=== PATIENT | male | born 1955 | race American Indian/Alaskan Native ===

== ENCOUNTER 2016-07-29 11:16 | Inpatient (IN) | payer MEDICARE, MEDICAID ==
[2016-07-29 11:18] VITALS: BMI 22.7
[2016-07-29] MEDS ORDERED: Metoprolol 1 mg/ml Inj IVP ONE ×2 (12:03→12:43)
--- NOTE | 2016-07-29 12:08 | ED PDOC ---
Arrival/HPI - General Chief Complaint: Medical Clearance Time Seen by Provider: 07/29/16 11:40 Historian: Patient - Critical Care Critical Care Minutes: 30 minutes - History of Present Illness Narrative History of Present Illness (Text): 07/29/16 11:53 Edmar Law is a 61 year old male who presents to the emergency room complaining of heart palpitations since this morning. Patient states that he has been experiencing intermittent hypertension for 2-3 weeks which caused his PMD to increase his medications. After no relief, patient's PMD changed the patient medication which helped but caused patient to feel nauseous yesterday. This morning, after taking medication, patient began to feel heart palpitations and found his sugar level to be 174. Patient denies any fever, chills, chest pain, vomiting, diarrhea, urinary symptoms, back pain, neck pain, headache, dizziness, or any other complaints. Time/Duration: 24 hours Symptom Onset: Gradual Symptom Course: Worsening Severity Level: Mild Activities at Onset: Light Context: Home Associated Symptoms (Text): 07/29/16 12:44 Patient reports hypertension measured at home for the last several weeks. A few days ago his PMD changed the dosages of his medications. Yesterday he was seen by his PMD and hydralazine was added. Today the patient has palpitations and lightheadedness. No chest pain. No dyspnea. No abdominal pain nausea vomiting. No weakness. 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 Past Medical History - Provider Review Nursing Documentation Reviewed: Yes - Past History Past History: No Previous - Infectious Disease Hx of Infectious Diseases: None - Tetanus Immunization Tetanus Immunization: Unknown - Cardiac Hx Hypertension: Yes - Pulmonary Hx Respiratory Disorders: No - Neurological HX Cerebrovascular Accident: Yes (right side weakness) - HEENT Hx HEENT Disorder: No Other/Comment: WEARS RX GLASSES - Renal Hx Renal Disorder: No Other/Comment: frequency - Endocrine/Metabolic Hx Diabetes Mellitus Type 1: Yes - Hematological/Oncological Hx Blood Disorders: No - Integumentary Hx Dermatological Disorder: No - Musculoskeletal/Rheumatological Hx Falls: No - Psychiatric Hx Substance Use: No Other/Comment: BEER OCCASIONALLY - Past Surgical History Past Surgical History: No Previous - Anesthesia Hx Anesthesia: No - Suicidal Assessment Feels Threatened In Home Enviroment: No Family/Social History - Physician Review Nursing Documentation Reviewed: Yes Family/Social History: No Known Family HX Smoking Status: Never Smoked Hx Alcohol Use: No Hx Substance Use: No Hx Substance Use Treatment: No Allergies/Home Meds Allergies/Adverse Reactions: Allergies No Known Allergies Allergy (Verified 09/30/12 13:56) Home Medications: Home Meds Medication Instructions Recorded Confirmed Clonidine Hydrochloride [Clonidine 0.2 mg PO BID 09/30/12 09/30/12 HCl] Metformin Hydrochloride [Metformin] 500 mg PO BID 09/30/12 09/30/12 Amlodipine Besylate 10 mg PO DAILY 10/11/12 10/11/12 Aspirin [Ecotrin] 325 mg PO DAILY 10/11/12 10/11/12 Enalapril Maleate [Enalapril] 20 mg PO DAILY 10/11/12 10/11/12 Simvastatin 20 mg PO HS 10/11/12 10/11/12 Review of Systems - Physician Review All systems were reviewed & negative as marked: Yes - Review of Systems Constitutional: Fatigue. absent: Fevers, Night Sweats Eyes: absent: Vision Changes ENT: absent: Hearing Changes Respiratory: absent: Cough Cardiovascular: Palpitations. absent: Chest Pain, Syncope Gastrointestinal: Nausea. absent: Abdominal Pain, Constipation, Diarrhea, Vomiting Genitourinary Male: absent: Dysuria, Frequency, Hematuria, Urinary Output Changes Musculoskeletal: absent: Back Pain, Neck Pain Skin: absent: Pruritis Neurological: Dizziness, Focal Weakness (Old right upper extremity weakness). absent: Headache, Gait Changes, Speech Changes, Facial Droop, Disequilibrium, Seizure Endocrine: absent: Polyuria Hemo/Lymphatic: absent: Easy Bleeding Psychiatric: absent: Depression Physical Exam - Physical Exam Narrative Physical Exam (Text): 07/29/16 12:46 EKG shows sinus tachycardia rate approximately 125 with unifocal PVCs and no acute ST or T-wave changes Vital Signs Reviewed: Yes Vital Signs Temp Pulse Resp BP Pulse Ox 07/29/16 13:59 87 17 141/93 H 98 07/29/16 13:35 100 H 172/92 H 07/29/16 13:00 100 H 16 172/92 H 98 07/29/16 12:39 121 H 164/108 H 07/29/16 11:36 97.8 F 131 H 20 179/114 H 99 Temperature: Afebrile Blood Pressure: Hypertensive Pulse: Tachycardic Respiratory Rate: Normal Appearance: Positive for: Well-Appearing, Non-Toxic, Comfortable Pain Distress: None Mental Status: Positive for: Alert and Oriented X 3 - Systems Exam Head: Present: Atraumatic, Normocephalic Pupils: Present: PERRL Extroacular Muscles: Present: EOMI Conjunctiva: Present: Normal Mouth: Present: Moist Mucous Membranes Neck: Present: Normal Range of Motion Respiratory/Chest: Present: Clear to Auscultation, Good Air Exchange. No: Respiratory Distress, Accessory Muscle Use Cardiovascular: Present: Regular Rate and Rhythm, Normal S1, S2. No: Murmurs Abdomen: Present: Normal Bowel Sounds. No: Tenderness, Distention, Peritoneal Signs Back: Present: Normal Inspection Upper Extremity: Present: Other (weakness in Right UE) Lower Extremity: Present: Normal Inspection. No: Edema Neurological: Present: GCS=15, CN II-XII Intact, Speech Normal Skin: Present: Warm, Dry, Normal Color. No: Rashes Psychiatric: Present: Alert, Oriented x 3, Normal Insight, Normal Concentration Medical Decision Making ED Course and Treatment: 07/29/16 11:53 Impression: 61 year old male complaining of heart palpitations this morning and nausea yesterday after a change in his medication. Plan: -- EKG -- Head CT w/o Contrast -- Chest X-ray -- Labs -- Lopressor -- Reassess and disposition Prior Visits: Notes and results from previous visits were reviewed. Patient last seen in the ED on 10/11/12 for weakness and dizziness due to low sugar levels fora few hours that day. Patient was admitted to the hospital for further evaluation. Progress Notes: 07/29/16 13:24 CT scan of the head as read by the radiologist shows no acute findings - Lab Interpretations Lab Results: 07/29/16 12:30 07/29/16 12:30 Lab Results 07/29/16 12:30: WBC 8.7 D, RBC 5.54, Hgb 15.4, Hct 43.8, MCV 79.1 L, MCH 27.8, MCHC 35.2, RDW 12.9, Plt Count 214, MPV 10.7, Gran % 81.8 H, Lymph % (Auto) 13.3 L, Otoe % (Auto) 4.5, Eos % (Auto) 0.1 L, Baso % (Auto) 0.3, Gran # 7.14 H , Lymph # 1.2, Otoe # 0.4, Eos # 0.0, Baso # 0.03, Sodium 138, Potassium 3.5 L, Chloride 103, Carbon Dioxide 26, Anion Gap 13, BUN 17, Creatinine 1.0, Est GFR ( Amer) > 60, Est GFR (Non-Af Amer) > 60, Random Glucose 201 H, Calcium 9.5, Phosphorus 2.7, Magnesium 1.7, Total Bilirubin 1.0, AST 27, ALT 12, Alkaline Phosphatase 109, Lactate Dehydrogenase 388, Total Creatine Kinase 126, Troponin I < 0.01, Total Protein 8.3, Albumin 4.3, Globulin 4.0, Albumin/ Globulin Ratio 1.1 I have reviewed the lab results: Yes - RAD Interpretation Radiology Orders: 07/29/16 12:03 HEAD W/O CONTRAST [CT] Stat 07/29/16 12:04 CHEST PORTABLE [RAD] Stat Chest 1 view shows no infiltrate effusion or cardiomegaly Fire Prevention Officer: ED Physician - Medication Orders Current Medication Orders: Discontinued Medications Metoprolol Tartrate (Lopressor) 5 mg IVP ONCE ONE Stop: 07/29/16 12:04 Last Admin: 07/29/16 12:39 Dose: 5 MG MAR Pulse and Blood Pressure Document 07/29/16 12:39 EQ (Rec: 07/29/16 12:39 EQ [place] [id number]) Pulse Pulse Rate (60-90 beats/min) 121 Blood Pressure Blood Pressure (100/60-150/90 mm Hg) 164/108 IVP Administration Document 07/29/16 12:39 EQ (Rec: 07/29/16 12:39 EQ [facility] [id number]) Charges for Administration # of IVP Administrations 1 Metoprolol Tartrate (Lopressor) 5 mg IVP ONCE ONE Stop: 07/29/16 12:44 Last Admin: 07/29/16 13:35 Dose: 5 MG MAR Pulse and Blood Pressure Document 07/29/16 13:35 EQ (Rec: 07/29/16 13:35 EQ [facility] [id number]) Pulse Pulse Rate (60-90 beats/min) 100 Blood Pressure Blood Pressure (100/60-150/90 mm Hg) 172/92 IVP Administration Document 07/29/16 13:35 EQ (Rec: 07/29/16 13:35 EQ [facility] [id number]) Charges for Administration # of IVP Administrations 1 - Scribe Statement The provider has reviewed the documentation as recorded by the Morales Pugh Provider Scribe Attestation: All medical record entries made by the Scribe were at my direction and personally dictated by me. I have reviewed the chart and agree that the record accurately reflects my personal performance of the history, physical exam, medical decision making, and the department course for this patient. I have also personally directed, reviewed, and agree with the discharge instructions and disposition. Disposition/Present on Arrival - Present on Arrival Any Indicators Present on Arrival: No History of DVT/PE: No History of Uncontrolled Diabetes: No Urinary Catheter: No History of Decub. Ulcer: No History Surgical Site Infection Following: None - Disposition Have Diagnosis and Disposition been Completed?: Yes Diagnosis: Hypertension, Tachycardia, dizzy, Palpitations Disposition: HOSPITALIZED Disposition Time: 13:47 Patient Plan: Observation, Telemetry Patient Problems: Current Active Problems Problem Status Diagnosed Hypertension Acute Palpitations Acute Tachycardia Acute dizzy Acute Condition: GOOD
[2016-07-29 12:38] LABS: ADD MANUAL DIFF? NO
--- NOTE | 2016-07-29 13:05 | RAD ---
HISTORY: palpitations COMPARISON: Chest xray performed 10/11/2012 TECHNIQUE: Chest, one view. FINDINGS: LUNGS: No focal consolidation. Please note that chest x-ray has limited sensitivity for the detection of pulmonary masses. PLEURA: No significant pleural effusion identified. No definite pneumothorax . CARDIOVASCULAR: The cardiomediastinal silhouette appears within normal limits of size. OSSEOUS STRUCTURES: No acute osseous abnormality identified. VISUALIZED UPPER ABDOMEN: Unremarkable. OTHER FINDINGS: None. IMPRESSION: No focal consolidation, significant pleural effusion, or definite pneumothorax identified.
[2016-07-29 13:06] LABS: BASO # 0.03 K/mm3 (0.0-2.0); BASO % 0.3 % (0.0-3.0); EOS % 0.1 % (1.5-5.0); GRAN # 7.14 (1.4-6.5); GRAN % 81.8 % (50.0-68.0); HEMATOCRIT 43.8 % (42.0-52.0); LYMPH # 1.2 (1.2-3.4); LYMPH % 13.3 % (22.0-35.0); MEAN CELL VOLUME 79.1 fL (80.0-105.0); MEAN CORPUSCULAR HEMOGLOBIN 27.8 pg (25.0-35.0); MEAN CORPUSCULAR HGB CONC 35.2 g/dl (31.0-37.0); MEAN PLATELET VOLUME 10.7 fl (7.0-11.0); MONO # 0.4 (0.1-0.6); MONO % 4.5 % (1.0-6.0); PLATELET COUNT 214 10^3/uL (120.0-450.0); RED CELL DISTRIBUTION WIDTH 12.9 % (11.5-14.5); WHITE BLOOD COUNT 8.7 10^3/ul (4.5-11.0)
[2016-07-29 13:11] LABS: ALB/GLOB RATIO 1.1 (1.1-1.8); ALKALINE PHOSPHATASE 109 U/L (38-133); ALT/SGPT 12 U/L (7-56); AST/SGOT 27 U/L (15-59); BLOOD UREA NITROGEN 17 mg/dL (7-21); CALCIUM 9.5 mg/dL (8.4-10.5); CARBON DIOXIDE 26 mmol/L (21-33); CHLORIDE 103 mmol/L (98-107); GFR AFRICAN-AMERICAN > 60; GLUCOSE,RANDOM 201 mg/dL (70-110); MAGNESIUM 1.7 mg/dL (1.7-2.2); PHOSPHOROUS 2.7 mg/dL (2.5-4.5); POTASSIUM 3.5 mmol/L (3.6-5.0); SODIUM 138 mmol/L (132-148); TOTAL PROTEIN 8.3 g/dL (5.8-8.3)
--- NOTE | 2016-07-29 13:22 | CT ---
PROCEDURE: CT HEAD WITHOUT CONTRAST. HISTORY: dizzy COMPARISON: MRI brain performed CT head 09/30/12 TECHNIQUE: Axial computed tomography images were obtained through the head/brain without intravenous contrast. Radiation dose: Total exam DLP = 779.67 MGy-cm. FINDINGS: HEMORRHAGE: No intracranial hemorrhage. BRAIN: No mass effect or edema. Scattered periventricular and subcortical white matter hypodensities, which are nonspecific, but often seen with chronic microvascular ischemic disease. Chronic ischemic change involving the left thalamus/ jaramillo radiata. Please note that MRI with diffusion imaging is more sensitive in the detection of acute ischemic event. VENTRICLES: No hydrocephalus. CALVARIUM: Unremarkable. PARANASAL SINUSES: Unremarkable as visualized. No significant inflammatory changes. MASTOID AIR CELLS: Unremarkable as visualized. No inflammatory changes. OTHER FINDINGS: None. IMPRESSION: Chronic ischemic change involving the left thalamus/ jaramillo radiata. Scattered nonspecific white matter changes.
[2016-07-29 13:23] LABS: TROPONIN I < 0.01 ng/mL
--- NOTE | 2016-07-29 15:30 | CP.PCM.HP ---
Addendum entered and electronically signed by Zandra Mar DO 07/30/16 03:37 : given enalaprilat x 1 for SBP [address] Ferrell was called. CTA ordered. No segmental PE. Started lovenox and plavix. TSH normal. CT scan showed enlarged adrenals. consider Aldosterone:Renin Original Note: <Lesley Medrano - Last Filed: 07/29/16 16:25> History of Present Illness - History of Present Illness History of Present Illness: PGY-1 Medicine H&P 61 yo male with PMH of HTN, DM type 2, h/o stroke with right sided weakness presents to ED with heart palpitations, and HTN. Patient states that yesterday he went to his primary care provider and his BP was elevated. After a few hours at the office his BP went down and he was given a new prescription for hydralazine 50 mg q12. Patient states that before he went to the doctors office his head felt full. Yesterday night he took his new and previous BP meds. This morning His head felt full again and his BP was 200/114. He took his blood pressure medications. After he began to feel heart palpitations. He tried to lay down and use the bathroom but the palpations continued. He took his blood sugar medication but that did not stop the palpitation so he decided to come to the hospital. Patient states that he had previous episodes of palpitation but they do not last longer then a minute. He states that his blood pressure has be controlled but over the last month it has been increasing. He denies any addition stress or any changes to his diet. He did have a nuclear stress test sometime last year. He has some residual right sided weakness from past stroke. He denies any dizziness, fever, chills, sob, chest pain, abd pain, n/v/c/d, focal weakness. In ED CT head shows chronic ischemic changes involving the left thalamus/jaramillo radiata and CXR shows no active disease PMH: HTN, DM type 2, h/o stroke with right sided weakness PSH: denies SH; former smoker quit 30-40 yo, occasional alcohol use, denies illicit drug use Family hx; father- [place], mother- [place] allergies; NKDA Home meds; clonidine 0.2 q8 simvastatin 20 HS enalapril 20 BID asa 81 daily glipizide/metformin 2.5/500 BID Present on Admission - Present on Admission Any Indicators Present on Admission: No Review of Systems - Constitutional Constitutional: Headache. absent: Chills, Fever, Weakness - EENT Eyes: absent: Blurred Vision, Change in Vision Nose/Mouth/Throat: absent: Nasal Congestion, Sore Throat - Cardiovascular Cardiovascular: absent: Chest Pain, Diaphoresis, Dyspnea - Respiratory Respiratory: absent: Cough, Dyspnea, Hemoptysis - Gastrointestinal Gastrointestinal: absent: Abdominal Pain, Constipation, Cramping, Diarrhea, Hematochezia, Loose Stools, Melena, Nausea, Vomiting - Genitourinary Genitourinary: absent: Change in Urinary Stream, Difficulty Urinating, Dysuria, Hematuria - Musculoskeletal Musculoskeletal: absent: Muscle Weakness, Myalgias, Numbness, Tingling - Integumentary Integumentary: absent: Swelling, Unusual Bruising - Neurological Neurological: Headaches. absent: Dizziness, Numbness, Focal Weakness, Loss of Vision, Syncope, Tingling, Weakness - Hematologic/Lymphatic Hematologic: absent: Easy Bleeding, Easy Bruising Past Patient History - Infectious Disease Hx of Infectious Diseases: None - Tetanus Immunizations Tetanus Immunization: Unknown - Past Social History Smoking Status: Never Smoked Alcohol: Occasional Drugs: Denies - CARDIAC Hx Hypertension: Yes - PULMONARY Hx Respiratory Disorders: No - NEUROLOGICAL HX Cerebrovascular Accident: Yes (right side weakness) - HEENT Hx HEENT Problems: No Other/Comment: WEARS RX GLASSES - RENAL Hx Chronic Kidney Disease: No Other/Comment: frequency - ENDOCRINE/METABOLIC Hx Diabetes Mellitus Type 1: Yes - HEMATOLOGICAL/ONCOLOGICAL Hx Blood Disorders: No - INTEGUMENTARY Hx Dermatological Problems: No - MUSCULOSKELETAL/RHEUMATOLOGICAL Hx Falls: No - PSYCHIATRIC Hx Substance Use: No Other/Comment: BEER OCCASIONALLY - ANESTHESIA Hx Anesthesia: No Meds Allergies/Adverse Reactions: Allergies Allergy/AdvReac Type Severity Reaction Status Date / Time No Known Allergies Allergy Verified 09/30/12 13:56 Physical Exam - Constitutional Appears: Well, No Acute Distress - Head Exam Head Exam: ATRAUMATIC, NORMOCEPHALIC - Eye Exam Eye Exam: EOMI, Normal appearance, PERRL - ENT Exam ENT Exam: Mucous Membranes Moist - Respiratory Exam Respiratory Exam: Clear to Auscultation Bilateral, NORMAL BREATHING PATTERN. absent: Rhonchi, Wheezes, Respiratory Distress - Cardiovascular Exam Cardiovascular Exam: REGULAR RHYTHM. absent: Tachycardia, Diastolic murmur, Systolic Murmur - GI/Abdominal Exam GI & Abdominal Exam: Normal Bowel Sounds, Soft. absent: Distended, Firm, Guarding, Tenderness - Extremities Exam Extremities exam: Positive for: normal inspection. Negative for: pedal edema - Neurological Exam Neurological exam: Alert, Oriented x3 Additional comments: Right upper extremity 3/5 strength, Right lower extremity 4/5 strength - Skin Skin Exam: Dry, Intact, Normal Color, Warm Results - Vital Signs Recent Vital Signs: Last Vital Signs Temp 97.8 F 07/29/16 11:36 Pulse 87 07/29/16 13:59 Resp 17 07/29/16 13:59 BP 141/93 H 07/29/16 13:59 Pulse Ox 98 07/29/16 13:59 - Labs Result Diagrams: 07/29/16 12:30 07/29/16 12:30 Assessment & Plan - Assessment and Plan (Free Text) Assessment: 61 yo male with PMH of HTN, DM type 2, h/o stroke with right sided weakness presents to ED with heart palpitations and HTN. Plan: 1. palpitation - EKG shows tachycardia - cardiology consult - ordered TSH, lipid panel - trend trops - Echo 2. HTN - on presentation 179/114 - CT head shows chronic ischemic changes involving the left thalamus/jaramillo radiata - start lopressor 25 BID - stop hydralazine - cont clonidine and enalapril - will start HCTZ if BP continues to be uncontrolled - cardiology consulted 3. DM - cont glipizide/metformin - ISSS- low - finger stick ACHS 4. HLD - cont simvastatin 5. ppx - protonix- GI ppx - lovenox dvt ppx d/w attending, Dr. Germain <Madison Germain B - Last Filed: 07/30/16 15:30> Results - Vital Signs Recent Vital Signs: Last Vital Signs Temp 97.5 F L 07/29/16 16:00 Pulse 65 07/29/16 18:00 Resp 20 07/29/16 16:00 BP 157/85 H 07/29/16 17:30 Pulse Ox 98 07/29/16 13:59 - Labs Result Diagrams: 07/30/16 07:33 07/30/16 07:33 Labs: Laboratory Results - last 24 hr 07/29/16 07/29/16 16:10 17:05 PT 11.0 INR 1.02 APTT 25.0 D-Dimer, Quantitative 1.21 H POC Glucose (mg/dL) 164 H Attending/Attestation - Attestation I have personally seen and examined this patient.: Yes I have fully participated in the care of the patient.: Yes I have reviewed all pertinent clinical information: Yes Notes (Text): I have seen and examined patient with the resident. Agree with the above note with the following additions/ exceptions: This is 61 year old male with history of HTN, DM-2, dyslipidemia, CVA with residual right sided weakness who got admitted for evaluation of palpitations and uncontrolled HTN along with excessive sweating. Patient will be admitted to telemetry. EKG revealed ST. Troponins negative x1. Will monitor serial EKG's, serial cardiac iso, echo, TSH and start clonidine, lopresor, lisinopril and add hctz. Currently BP is 140/80. Will closely observe the patient. Dr Madison Germain.
[2016-07-29 15:51] LABS: CHOLESTEROL 155 mg/dL (130-200)
[2016-07-29] MEDS ORDERED: Potassium Chloride 40 mEq/30 ml LIQ UD PO ONE (16:16)
[2016-07-29 17:25] LABS: INR 1.02 (0.93-1.08)
[2016-07-29] MEDS: Insulin Reg-LOW-Coverage SC SCH ×2 (17:32→22:19)
[2016-07-29] MEDS: Pantoprazole 20 mg EC Tab PO SCH (17:36)
[2016-07-29 17:42] LABS: D DIMER 1.21 mg/L FEU (0-0.50)
[2016-07-29] MEDS: GLIPIZIDE PO SCH (17:50)
[2016-07-29] MEDS: METFORMIN PO SCH (17:50)
[2016-07-29] MEDS ORDERED: Home Med 1 UNIT PO SCH (18:00)
[2016-07-29] MEDS ORDERED: Influenza Vaccine 45 MCG/0.5 ml IM ONE (20:19)
[2016-07-29] MEDS ORDERED: Pneumococcal 23-Valent Vaccine IM ONE (20:19)
[2016-07-29 23:05] LABS: TROPONIN I 0.2 ng/mL
[2016-07-29] MEDS ORDERED: Iohexol 350 MG/100 ML VIAL ONE (23:37)
[2016-07-30] MEDS: EnalaprilAT 1.25 mg/ml Inj IVP PRN ×2 (02:01→12:40)
[2016-07-30 07:34] LABS: ADD MANUAL DIFF? NO
[2016-07-30 07:38] LABS: BASO # 0.02 K/mm3 (0.0-2.0); BASO % 0.4 % (0.0-3.0); EOS # 0.1 (0.0-0.7); EOS % 1.7 % (1.5-5.0); GRAN # 3.34 (1.4-6.5); GRAN % 61.9 % (50.0-68.0); HEMATOCRIT 40.5 % (42.0-52.0); LYMPH # 1.6 (1.2-3.4); LYMPH % 28.8 % (22.0-35.0); MEAN CELL VOLUME 79.1 fL (80.0-105.0); MEAN CORPUSCULAR HEMOGLOBIN 27.1 pg (25.0-35.0); MEAN CORPUSCULAR HGB CONC 34.3 g/dl (31.0-37.0); MEAN PLATELET VOLUME 10.1 fl (7.0-11.0); MONO # 0.4 (0.1-0.6); MONO % 7.2 % (1.0-6.0); PLATELET COUNT 187 10^3/uL (120.0-450.0); WHITE BLOOD COUNT 5.4 10^3/ul (4.5-11.0)
[2016-07-30 07:53] LABS: ALB/GLOB RATIO 1.1 (1.1-1.8); ALKALINE PHOSPHATASE 79 U/L (38-133); ALT/SGPT 12 U/L (7-56); AST/SGOT 25 U/L (15-59); BILIRUBIN,TOTAL 0.7 mg/dL (0.2-1.3); BLOOD UREA NITROGEN 16 mg/dL (7-21); CARBON DIOXIDE 25 mmol/L (21-33); CHLORIDE 104 mmol/L (98-107); GFR AFRICAN-AMERICAN > 60; GLUCOSE,RANDOM 154 mg/dL (70-110); POTASSIUM 3.9 mmol/L (3.6-5.0); SODIUM 139 mmol/L (132-148); TOTAL PROTEIN 7.4 g/dL (5.8-8.3)
[2016-07-30 08:13] LABS: TROPONIN I 0.13 ng/mL
[2016-07-30] MEDS: Insulin Reg-LOW-Coverage SC SCH ×4 (08:38→22:25)
[2016-07-30] MEDS: Pantoprazole 20 mg EC Tab PO SCH ×2 (08:38→18:13)
--- NOTE | 2016-07-30 09:40 | CARD ---
APPROVED REPORT EKG Measurement Heart [id number] <Conclusion> Sinus tachycardia with one PVC NSSTW changes Prolonged QT
[2016-07-30] MEDS ORDERED: Aspirin 325 mg EC Tablets PO SCH (10:00)
[2016-07-30] MEDS ORDERED: Enoxaparin 30 mg Syringe SC SCH (10:00)
--- NOTE | 2016-07-30 10:00 | CARD ---
APPROVED REPORT EKG Measurement Heart [id number] <Conclusion> Sinus bradycardia LVH STTW changes c/w ischemia. new
[2016-07-30] MEDS: Enoxaparin 60 mg Syringe SC SCH ×2 (11:11→21:51)
--- NOTE | 2016-07-30 11:17 | CT ---
CT chest with IV contrast Indication: Rule out PE Technique: Contiguous axial images were obtained through the chest with intravenous contrast enhancement. Sagittal and coronal reconstructions were performed. IV Contrast: 96 mL Omnipaque 350 Radiation dose (DLP): 482.08 MGy-cm. Comparison: Chest x-ray performed 07/29/16 Findings: Visualized portions of the inferior thyroid gland demonstrates tiny hypodensity within the right inferior thyroid pole. The mediastinal and hilar vascular structures appear within normal limits. Cardiomegaly. No significant pericardial effusion. Sub cm mediastinal and prevascular lymph nodes, nonspecific. Largest lymph node measures approximately 9 mm, sub lupillo. Sub cm axillary lymph nodes, nonspecific. No large central or segmental pulmonary embolus evident. No focal consolidation. No pleural effusion. No pneumothorax. No suspicious pulmonary nodules measuring greater than 5 mm. Small hiatal hernia. Limited visualization of the upper abdomen reveals bilateral adrenal gland hypertrophy. Osseous demineralization. Degenerative changes. Impression: No large central or segmental pulmonary embolus identified. Additional incidental findings as above. Preliminary impression was provided by virtual radiologic.
[2016-07-30] MEDS: GLIPIZIDE PO SCH ×2 (11:23→18:07)
[2016-07-30] MEDS: METFORMIN PO SCH ×2 (11:23→18:07)
--- NOTE | 2016-07-30 12:00 | CP.PCM.PN ---
<Esa Hearn - Last Filed: 07/30/16 12:41> Subjective - Date & Time of Evaluation Date of Evaluation: 07/30/16 Time of Evaluation: 08:14 - Subjective Subjective: Pt seen and examined. Pt reports that he is feeling well today, but in anxious about his elevated blood pressure. Pt denies headache, palpitations, chest pain , fever, chills, chest pain, shortness of breath. Objective - Vital Signs/Intake and Output Vital Signs (last 24 hours): Temp Pulse Resp BP Pulse Ox 97.9 F 74 18 197/83 H 100 07/30/16 06:00 07/30/16 10:00 07/30/16 06:00 07/30/16 11:15 07/30/16 06:00 - Medications Medications: Current Medications Acetaminophen (Tylenol 325mg Tab) 650 mg PO Q6H PRN PRN Reason: Headache Last Admin: 07/30/16 03:35 Dose: 650 mg Aspirin (Ecotrin) 81 mg PO DAILY [facility] Last Admin: 07/30/16 11:26 Dose: 81 mg Atorvastatin Calcium (Lipitor) 40 mg PO DIN [facility] Clonidine HCl (Catapres) 0.2 mg PO Q8 [facility] Last Admin: 07/30/16 06:05 Dose: 0.2 mg Clopidogrel Bisulfate (Plavix) 75 mg PO DAILY [facility] Last Admin: 07/30/16 11:15 Dose: 75 mg Enalaprilat (Vasotec Iv) 1.25 mg IVP Q6H PRN PRN Reason: Systolic Blood Pressure Last Admin: 07/30/16 02:01 Dose: 1.25 mg Enoxaparin Sodium (Lovenox) 60 mg SC Q12 [facility] PRN Reason: Protocol Last Admin: 07/30/16 11:11 Dose: 60 mg Home Med (Home Med) 1 unit PO BID [facility] Last Admin: 07/30/16 11:23 Dose: Not Given Insulin Human Regular (Humulin R Low) 0 units SC ACHS [facility] PRN Reason: Protocol Last Admin: 07/30/16 08:38 Dose: 1 units Lisinopril (Zestril) 20 mg PO DAILY [facility] Last Admin: 07/30/16 11:15 Dose: 20 mg Metoprolol Tartrate (Lopressor) 25 mg PO BID [facility] Last Admin: 07/30/16 11:15 Dose: 25 mg Pantoprazole Sodium (Protonix Ec Tab) 20 mg PO 0730,1630 [facility] Last Admin: 07/30/16 08:38 Dose: 20 mg Zolpidem Tartrate (Ambien) 5 mg PO HS PRN; Protocol PRN Reason: Insomnia - Labs Labs: PT 11.0 Seconds (9.9-11.8) 07/29/16 17:05 INR 1.02 (0.93-1.08) 07/29/16 17:05 APTT 25.0 Seconds (23.7-30.8) 07/29/16 17:05 - Constitutional Appears: No Acute Distress - Head Exam Head Exam: ATRAUMATIC, NORMOCEPHALIC - Eye Exam Eye Exam: EOMI, PERRL - ENT Exam ENT Exam: Mucous Membranes Moist. absent: Mucous Membranes Dry - Respiratory Exam Respiratory Exam: Clear to Ausculation Bilateral. absent: Rales, Rhonchi, Wheezes - Cardiovascular Exam Cardiovascular Exam: +S1, +S2. absent: Gallop, Rubs - GI/Abdominal Exam GI & Abdominal Exam: Soft. absent: Distended, Rigid, Tenderness - Extremities Exam Extremities Exam: Full ROM. absent: Pedal Edema - Neurological Exam Neurological Exam: Alert, Awake, Oriented x3 - Psychiatric Exam Psychiatric exam: Normal Affect, Normal Mood - Skin Skin Exam: Normal Color, Warm Assessment and Plan - Assessment and Plan (Free Text) Assessment: Acute NSTEMI: EKG - PVC, prolonged QT; as per Dr. Hubbard (please see full report) Troponins 0.01, 0.20, 0.13 D-dimer 1.21 CXR - unremarkable (please see full report) CT-Angio of chest - no evidence of PE (please see full report) Cardiology, Dr. Carrera, consulted. Help appreciated. Aspirin 81 mg po qd Lipitor 40 mg po din Plavix 75 mg po qd Lovenox 60 mg sc 12h Lopressor 25 mg po bid Zestril 20 mg po qg Possible cardiac cath tomorrow in the afternoon as per Dr. Carrera. Pt can be made NPO after breakfast if he agrees to catheterization. Hypertensive Urgency/HTN: BP 200/110 Vasotec 1.25 mg IBP q6h prn Catepres 0.2 mg po q8h Zestril 20 mg po qg HCTZ 25 mg po qd Lopressor 25 mg po bid Monitor BP Headache: Head CT - chronic ischemic changes (please see full report) Tylenol 650 mg po q6h prn for pain Diabetes Mellitus: Accuchecks Regular insulin sliding scale Prophylactic Measures: GI: Protonix 40 mg po qd DVT: Lovenox 60 mg sc q12h <Madison Germain - Last Filed: 07/30/16 15:38> Objective - Vital Signs/Intake and Output Vital Signs (last 24 hours): Temp Pulse Resp BP Pulse Ox 97.9 F 56 L 20 200/82 H 100 07/30/16 13:11 07/30/16 14:49 07/30/16 13:11 07/30/16 14:49 07/30/16 06:00 - Medications Medications: Current Medications Acetaminophen (Tylenol 325mg Tab) 650 mg PO Q6H PRN PRN Reason: Headache Last Admin: 07/30/16 03:35 Dose: 650 mg Aspirin (Ecotrin) 81 mg PO DAILY [facility] Last Admin: 07/30/16 11:26 Dose: 81 mg Atorvastatin Calcium (Lipitor) 40 mg PO DIN [facility] Clonidine HCl (Catapres) 0.3 mg PO Q8H [facility] Last Admin: 07/30/16 14:49 Dose: 0.3 mg Clopidogrel Bisulfate (Plavix) 75 mg PO DAILY [facility] Last Admin: 07/30/16 11:15 Dose: 75 mg Enalaprilat (Vasotec Iv) 1.25 mg IVP Q6H PRN PRN Reason: Systolic Blood Pressure Last Admin: 07/30/16 12:40 Dose: 1.25 mg Enoxaparin Sodium (Lovenox) 60 mg SC Q12 [facility] PRN Reason: Protocol Last Admin: 07/30/16 11:11 Dose: 60 mg Home Med (Home Med) 1 unit PO BID [facility] Last Admin: 07/30/16 11:23 Dose: Not Given Hydrochlorothiazide (Hydrodiuril) 25 mg PO DAILY [facility] Insulin Human Regular (Humulin R Low) 0 units SC ACHS [facility] PRN Reason: Protocol Last Admin: 07/30/16 12:39 Dose: 1 units Lisinopril (Zestril) 40 mg PO DAILY [facility] Metoprolol Tartrate (Lopressor) 25 mg PO BID [facility] Pantoprazole Sodium (Protonix Ec Tab) 20 mg PO 0730,1630 [facility] Last Admin: 07/30/16 08:38 Dose: 20 mg Zolpidem Tartrate (Ambien) 5 mg PO HS PRN; Protocol PRN Reason: Insomnia - Labs Labs: PT 11.0 Seconds (9.9-11.8) 07/29/16 17:05 INR 1.02 (0.93-1.08) 07/29/16 17:05 APTT 25.0 Seconds (23.7-30.8) 07/29/16 17:05 Attending/Attestation - Attestation I have personally seen and examined this patient.: Yes I have fully participated in the care of the patient.: Yes I have reviewed all pertinent clinical information, including history, physical exam and plan: Yes Notes (Text): I have seen and examined patient with the resident. Agree with the above note with the following additions/ exceptions: This is 61 year old male with history of HTN, DM-2, dyslipidemia, CVA with residual right sided weakness who got admitted for evaluation of palpitations and uncontrolled HTN along with excessive sweating. Troponin elevation was noted. He was started on aspirin, plavix and lovenox. PE ruled out. Discussed with hydro generation supervisor. Patient will get cardiac cath in the afternoon tomorrow. He should be NPO after breakfast. CTA showed bilateral adrenal gland hypertrophy. Given patients symptoms including resistant HTN, palpitations, diaphoresis and bilateral adrenal gland hypertrophy , work up should be done to exclude pheochromocytoma. Will order for urine catecholamines, metanephrines, aldosterone, renin, acth, cortisol and aldosterone. Will consult nephrology. Dr Madison Germain.
--- NOTE | 2016-07-30 14:50 | CON ---
DATE: 07/30/2016 HISTORY OF PRESENT ILLNESS: The patient is a 61-year-old male who has a history of stroke more than 10 years ago with residual right hemiparesis. He presented because of palpitation. The patient does not report experiencing any retrosternal chest pain. SOCIAL HISTORY: The patient is a nonsmoker. PAST MEDICAL HISTORY: Hypertension, CVA in the past with residual right hemiparesis. MEDICATIONS: Clonidine 0.2 mg q. 8 hours, aspirin 81 mg once a day, hydrochlorothiazide 25 mg once a day, Lipitor at 40 mg once a day, Lopressor 25 mg once a day, therapeutic subcutaneous Lovenox 60 mg twice a day, Plavix 75 mg once a day, Zestril 40 mg once a day. PHYSICAL EXAMINATION: GENERAL: The patient is a middle-aged male who does not appear to be in any distress. VITAL SIGNS: Blood pressure 210/100, heart rate 75, temperature 97.7, respirations 20. HEENT: Normocephalic. NECK: No JVD. CHEST: Clear. HEART: S1, S2 regular. EXTREMITIES: No edema. LABORATORY DATA: Hemoglobin and hematocrit 13.9 and 40.5. White count and platelet count are within normal limits. SMA-7 is within normal limits except for glucose of 154. Troponins are 0.2 and 0.13 . Lipid profile is within normal limits. Initial EKG revealed sinus tachycardia at rate of [address]-T wave changes. Repeat EKG last night revealed sinus bradycardia at a rate of 54 wit h lateral ischemic T-wave inversion. Chest CT angio revealed no large central or segmental pulmonary embolus. Cardiomegaly. Head CT scan without contrast revealed chronic skin changes involving the l eft thalamic, jaramillo radiata. ASSESSMENT: 1. Non-ST elevation myocardial infarction. 2. History of cerebrovascular accident in the past with residual right hemiparesis. 3. Uncontrolled hypertension. 4. Diabetes mellitus. RECOMMENDATIONS: Increase clonidine to 0.3 mg q. 8 hours. Continue hydrochlorothiazide at 25 mg onc e a day, Lipitor at 40 mg once a day, Lopressor at 25 mg twice a day, subcutaneous Lovenox at 40 mg t wice a day, Plavix 75 mg once a day, Zestril 40 mg once a day. I will administer 1 dose of Lasix 20 mg IV push. Cardiac catheterization was discussed at length with the patient. However, the patient still does not want to accept the diagnosis that he had a heart attack. He will still think about th e procedure. The case was discussed with the medical driver team. If the patient agrees, the card iac catheterization will be performed tomorrow. Souleymane Carrera MD cc: [id number] TT: 07/30/2016 14:50:05 Confirmation # [id number] Dictation # [id number] rn
[2016-07-31 00:35] VITALS: O2SAT 99
[2016-07-31 07:47] LABS: ADD MANUAL DIFF? NO
[2016-07-31 07:57] LABS: BASO # 0.02 K/mm3 (0.0-2.0); BASO % 0.3 % (0.0-3.0); EOS # 0.1 (0.0-0.7); EOS % 0.9 % (1.5-5.0); GRAN # 4.63 (1.4-6.5); GRAN % 69.8 % (50.0-68.0); HEMATOCRIT 42.5 % (42.0-52.0); LYMPH # 1.5 (1.2-3.4); LYMPH % 22.1 % (22.0-35.0); MEAN CELL VOLUME 79.1 fL (80.0-105.0); MEAN CORPUSCULAR HEMOGLOBIN 27.7 pg (25.0-35.0); MEAN CORPUSCULAR HGB CONC 35.1 g/dl (31.0-37.0); MEAN PLATELET VOLUME 10.2 fl (7.0-11.0); MONO # 0.5 (0.1-0.6); MONO % 6.9 % (1.0-6.0); PLATELET COUNT 199 10^3/uL (120.0-450.0); WHITE BLOOD COUNT 6.6 10^3/ul (4.5-11.0)
[2016-07-31 08:16] LABS: ALB/GLOB RATIO 1.1 (1.1-1.8); ALKALINE PHOSPHATASE 82 U/L (38-133); ALT/SGPT 10 U/L (7-56); AST/SGOT 27 U/L (15-59); BILIRUBIN,TOTAL 0.6 mg/dL (0.2-1.3); BLOOD UREA NITROGEN 22 mg/dL (7-21); CALCIUM 9.5 mg/dL (8.4-10.5); CARBON DIOXIDE 28 mmol/L (21-33); CHLORIDE 100 mmol/L (98-107); GFR AFRICAN-AMERICAN > 60; GLUCOSE,RANDOM 193 mg/dL (70-110); MAGNESIUM 1.9 mg/dL (1.7-2.2); PHOSPHOROUS 4.4 mg/dL (2.5-4.5); POTASSIUM 4.1 mmol/L (3.6-5.0); SODIUM 139 mmol/L (132-148); TOTAL PROTEIN 7.9 g/dL (5.8-8.3)
[2016-07-31] MEDS: Insulin Reg-LOW-Coverage SC SCH ×4 (09:05→22:13)
[2016-07-31] MEDS: Enoxaparin 60 mg Syringe SC SCH ×2 (09:59→22:06)
[2016-07-31] MEDS: Pantoprazole 20 mg EC Tab PO SCH ×2 (10:15→17:28)
[2016-07-31] MEDS: GLIPIZIDE PO SCH ×2 (10:21→17:45)
[2016-07-31] MEDS: METFORMIN PO SCH ×2 (10:21→17:45)
[2016-07-31] MEDS: Sodium Chloride 0.45% 1,000 ML IV SCH ×2 (10:23→20:30)
[2016-07-31 13:22] LABS: CORTISOL AM 9.5 ug/dL (4.46-22.7)
[2016-07-31] MEDS ORDERED: Iodixanol 320 mg/ml 150 ml Bottle IV ONE (14:24)
[2016-07-31] MEDS ORDERED: Lidocaine 2% Inj (20ml) ONE (14:24)
[2016-07-31] MEDS ORDERED: Midazolam 2 MG/2 ML VIAL ONE (14:56)
[2016-07-31] MEDS ORDERED: Nitroglycerin 2% Ointment Foilpak UD TOP ONE (15:02)
--- NOTE | 2016-07-31 16:16 | CARDCATH ---
PROCEDURE DATE: 07/31/2016 The patient is a 61-year-old -[place] male who has history of hypertension, history of old ce rebrovascular accident with residual right hemiparesis. He presented because of palpitation. Tropon in was slightly elevated and EKG revealed ____ ischemic T-wave changes on admission. Cardiac cathete rization was recommended. The procedure and its risks fully explained to the patient who understood and agreed for the procedure. PROCEDURE: Left and right coronary angiography were performed with 6-Persian JL4 and JR4 diagnostic c atheters. Left ventriculogram was performed with 6-Persian pigtail catheter. The patient tolerated t he procedure well without any complications. ANGIOGRAPHIC FINDINGS: Selective injection of left coronary artery revealed left main to be a normal vessel, left main trifurcated into medium sized LAD, medium sized ramus and medium sized circumflex artery. The LAD had a 50% proximal narrowing and the circumflex artery had 40% narrowing in its midd le portion and the rest of the left coronary circulation was angiographically unremarkable. Selectiv e injection of right coronary artery revealed a medium-sized dominant vessel that had 50% distal sten osis. Left ventriculogram performed in SIERRA projection revealed normal wall motion. Ejection fractio n estimated at 55%. CONCLUSION: 50% proximal left anterior descending disease and 50% distal right coronary artery disea se. RECOMMENDATIONS: Optimize blood pressure control. Continue aspirin, Lipitor and Lopressor therapy. Continue beta lang therapy. Souleymane Carrera MD cc: [id number] TT: 07/31/2016 16:15:59 jn
[2016-07-31 17:58] VITALS: RESP 20
[2016-07-31] MEDS: EnalaprilAT 1.25 mg/ml Inj IVP PRN (18:31)
--- NOTE | 2016-07-31 18:49 | CP.PCM.PN ---
Subjective - Date & Time of Evaluation Date of Evaluation: 07/31/16 Time of Evaluation: 09:14 - Subjective Subjective: Pt seen and examined. Pt out of bed to chair and sitting comfortably. Pt denies headache, vision changes, chest pain, shortness of breath, palpitations, nausea , and vomiting. Objective - Vital Signs/Intake and Output Vital Signs (last 24 hours): Temp Pulse Resp BP Pulse Ox 98.6 F 82 20 195/79 H 99 07/31/16 17:56 07/31/16 17:56 07/31/16 17:56 07/31/16 18:31 07/31/16 05:35 Intake and Output: 07/31/16 07/31/16 06:59 18:59 Intake Total 240 Balance 240 - Medications Medications: Current Medications Acetaminophen (Tylenol 325mg Tab) 650 mg PO Q6H PRN PRN Reason: Headache Last Admin: 07/31/16 18:31 Dose: 650 mg Aspirin (Ecotrin) 81 mg PO DAILY [facility] Last Admin: 07/31/16 09:50 Dose: 81 mg Atorvastatin Calcium (Lipitor) 40 mg PO DIN [facility] Last Admin: 07/31/16 17:28 Dose: 40 mg Clonidine HCl (Catapres) 0.3 mg PO Q8H [facility] Last Admin: 07/31/16 14:35 Dose: Not Given Clopidogrel Bisulfate (Plavix) 75 mg PO DAILY [facility] Last Admin: 07/31/16 09:47 Dose: 75 mg Enalaprilat (Vasotec Iv) 1.25 mg IVP Q6H PRN PRN Reason: Systolic Blood Pressure Last Admin: 07/31/16 18:31 Dose: 1.25 mg Enoxaparin Sodium (Lovenox) 60 mg SC Q12 [facility] PRN Reason: Protocol Last Admin: 07/31/16 09:59 Dose: Not Given Home Med (Home Med) 1 unit PO BID [facility] Last Admin: 07/31/16 17:45 Dose: Not Given Hydrochlorothiazide (Hydrodiuril) 25 mg PO DAILY [facility] Sodium Chloride (Sodium Chloride 0.45%) 1,000 mls @ 100 mls/hr IV .Q10H [facility] Last Admin: 07/31/16 10:23 Dose: 100 mls/hr Insulin Human Regular (Humulin R Low) 0 units SC ACHS [facility] PRN Reason: Protocol Last Admin: 07/31/16 16:45 Dose: Not Given Lisinopril (Zestril) 40 mg PO DAILY [facility] Last Admin: 07/31/16 09:47 Dose: 40 mg Metoprolol Tartrate (Lopressor) 25 mg PO BID [facility] Last Admin: 07/31/16 17:29 Dose: Not Given Pantoprazole Sodium (Protonix Ec Tab) 20 mg PO 0730,1630 [facility] Last Admin: 07/31/16 17:28 Dose: 20 mg Zolpidem Tartrate (Ambien) 5 mg PO HS PRN; Protocol PRN Reason: Insomnia Last Admin: 07/30/16 23:30 Dose: 5 mg - Labs Labs: 07/31/16 07:30 07/31/16 07:30 PT 11.0 Seconds (9.9-11.8) 07/29/16 17:05 INR 1.02 (0.93-1.08) 07/29/16 17:05 APTT 25.0 Seconds (23.7-30.8) 07/29/16 17:05 - Constitutional Appears: No Acute Distress - Head Exam Head Exam: ATRAUMATIC, NORMOCEPHALIC - Eye Exam Eye Exam: EOMI, PERRL - ENT Exam ENT Exam: Mucous Membranes Moist. absent: Mucous Membranes Dry - Respiratory Exam Respiratory Exam: Clear to Ausculation Bilateral. absent: Rales, Rhonchi, Wheezes - Cardiovascular Exam Cardiovascular Exam: +S1, +S2. absent: Gallop, Rubs, Murmur - GI/Abdominal Exam GI & Abdominal Exam: Soft, Normal Bowel Sounds. absent: Distended, Guarding, Tenderness - Extremities Exam Extremities Exam: Full ROM. absent: Pedal Edema - Neurological Exam Neurological Exam: Alert, Awake, Oriented x3 - Psychiatric Exam Psychiatric exam: Normal Affect, Normal Mood - Skin Skin Exam: Normal Color, Warm Assessment and Plan - Assessment and Plan (Free Text) Assessment: NSTEMI: EKG - PVC, prolonged QT; as per Dr. Hubbard (please see full report) Troponins 0.01, 0.20, 0.13 D-dimer 1.21 CXR - unremarkable (please see full report) CT-Angio of chest - no evidence of PE (please see full report) Cardiology, Dr. Carrera, consulted. Help appreciated. Aspirin 81 mg po qd Lipitor 40 mg po din Plavix 75 mg po qd Lovenox 60 mg sc 12h Lopressor 25 mg po bid Zestril 20 mg po qg Day 0 s/p cardiac catheterization - 50% proximal left anterior descending artery disease and 50% distal right coronary artery disease. No stents placed. Medical management as per cardiology, Dr. Carrera. Hypertensive Urgency/HTN: BP 131/75 Vasotec 1.25 mg IBP q6h prn Catepres 0.2 mg po q8h Zestril 20 mg po qg HCTZ 25 mg po qd Lopressor 25 mg po bid Monitor BP Pheochromocytoma work up pending Headache: Head CT - chronic ischemic changes (please see full report) Tylenol 650 mg po q6h prn for pain Diabetes Mellitus: Accuchecks Regular insulin sliding scale Prophylactic Measures: GI: Protonix 40 mg po qd DVT: Lovenox 60 mg sc q12h
[2016-08-01] MEDS: Sodium Chloride 0.45% 1,000 ML IV SCH (05:30)
[2016-08-01 07:04] LABS: ADD MANUAL DIFF? NO
[2016-08-01 07:19] LABS: BASO # 0.03 K/mm3 (0.0-2.0); BASO % 0.6 % (0.0-3.0); EOS # 0.1 (0.0-0.7); EOS % 1.2 % (1.5-5.0); GRAN # 3.36 (1.4-6.5); GRAN % 66.7 % (50.0-68.0); HEMATOCRIT 39.2 % (42.0-52.0); LYMPH # 1.1 (1.2-3.4); LYMPH % 22.6 % (22.0-35.0); MEAN CELL VOLUME 79.2 fL (80.0-105.0); MEAN CORPUSCULAR HEMOGLOBIN 27.1 pg (25.0-35.0); MEAN CORPUSCULAR HGB CONC 34.2 g/dl (31.0-37.0); MEAN PLATELET VOLUME 10.4 fl (7.0-11.0); MONO # 0.5 (0.1-0.6); MONO % 8.9 % (1.0-6.0); PLATELET COUNT 164 10^3/uL (120.0-450.0); RED CELL DISTRIBUTION WIDTH 12.9 % (11.5-14.5)
[2016-08-01 07:42] LABS: ALB/GLOB RATIO 1.1 (1.1-1.8); ALKALINE PHOSPHATASE 103 U/L (38-133); ALT/SGPT 16 U/L (7-56); AST/SGOT 24 U/L (15-59); BILIRUBIN,TOTAL 0.5 mg/dL (0.2-1.3); BLOOD UREA NITROGEN 19 mg/dL (7-21); CALCIUM 8.7 mg/dL (8.4-10.5); CARBON DIOXIDE 27 mmol/L (21-33); CHLORIDE 101 mmol/L (98-107); GFR AFRICAN-AMERICAN > 60; GLUCOSE,RANDOM 204 mg/dL (70-110); MAGNESIUM 1.6 mg/dL (1.7-2.2); PHOSPHOROUS 3.7 mg/dL (2.5-4.5); POTASSIUM 3.8 mmol/L (3.6-5.0); SODIUM 137 mmol/L (132-148); TOTAL PROTEIN 6.8 g/dL (5.8-8.3)
[2016-08-01] MEDS: Insulin Reg-LOW-Coverage SC SCH ×3 (08:20→17:46)
[2016-08-01] MEDS: Pantoprazole 20 mg EC Tab PO SCH ×2 (08:20→17:46)
[2016-08-01] MEDS ORDERED: Magnesium Sulfate 2 GM in Sodium Chloride 0.9% 100 ML IVPB ONE (09:24)
[2016-08-01] MEDS: Enoxaparin 60 mg Syringe SC SCH (11:28)
[2016-08-01] MEDS: GLIPIZIDE PO SCH ×2 (11:29→17:46)
[2016-08-01] MEDS: METFORMIN PO SCH ×2 (11:29→17:46)
[2016-08-01 13:18] VITALS: TEMP 97.9
[2016-08-01 13:33] VITALS: PULSE 117
--- NOTE | 2016-08-01 14:02 | CP.PCM.DIS ---
<Andreas Hearnkan - Last Filed: 08/01/16 13:47> Provider - Provider Date of Admission: 07/30/16 07:47 Attending physician: Sean Contreras MD Time Spent in preparation of Discharge (in minutes): 34 Hospital Course - Lab Results Lab Results: Most Recent Lab Values WBC 5.0 10^3/ul (4.5-11.0) D 08/01/16 06:20 RBC 4.95 10^6/uL (3.5-6.1) 08/01/16 06:20 Hgb 13.4 gm/dL (14.0-18.0) L 08/01/16 06:20 Hct 39.2 % (42.0-52.0) L 08/01/16 06:20 MCV 79.2 fL (80.0-105.0) L 08/01/16 06:20 MCH 27.1 pg (25.0-35.0) 08/01/16 06:20 MCHC 34.2 g/dl (31.0-37.0) 08/01/16 06:20 RDW 12.9 % (11.5-14.5) 08/01/16 06:20 Plt Count 164 10^3/uL (120.0-450.0) 08/01/16 06:20 MPV 10.4 fl (7.0-11.0) 08/01/16 06:20 Gran % 66.7 % (50.0-68.0) 08/01/16 06:20 Lymph % (Auto) 22.6 % (22.0-35.0) 08/01/16 06:20 Newton % (Auto) 8.9 % (1.0-6.0) H 08/01/16 06:20 Eos % (Auto) 1.2 % (1.5-5.0) L 08/01/16 06:20 Baso % (Auto) 0.6 % (0.0-3.0) 08/01/16 06:20 Gran # 3.36 (1.4-6.5) 08/01/16 06:20 Lymph # 1.1 (1.2-3.4) L 08/01/16 06:20 Newton # 0.5 (0.1-0.6) 08/01/16 06:20 Eos # 0.1 (0.0-0.7) 08/01/16 06:20 Baso # 0.03 K/mm3 (0.0-2.0) 08/01/16 06:20 PT 11.0 Seconds (9.9-11.8) 07/29/16 17:05 INR 1.02 (0.93-1.08) 07/29/16 17:05 APTT 25.0 Seconds (23.7-30.8) 07/29/16 17:05 D-Dimer, Quantitative 1.21 mg/L FEU (0-0.50) H 07/29/16 17:05 Sodium 137 mmol/L (132-148) 08/01/16 06:20 Potassium 3.8 mmol/L (3.6-5.0) 08/01/16 06:20 Chloride 101 mmol/L (98-107) 08/01/16 06:20 Carbon Dioxide 27 mmol/L (21-33) 08/01/16 06:20 Anion Gap 13 (10-20) 08/01/16 06:20 BUN 19 mg/dL (7-21) 08/01/16 06:20 Creatinine 1.2 mg/dL (0.5-1.4) 08/01/16 06:20 Est GFR ( Amer) > 60 08/01/16 06:20 Est GFR (Non-Af Amer) > 60 08/01/16 06:20 POC Glucose (mg/dL) 265 mg/dL (65-110) H 08/01/16 12:05 Random Glucose 204 mg/dL (70-110) H 08/01/16 06:20 Calcium 8.7 mg/dL (8.4-10.5) 08/01/16 06:20 Phosphorus 3.7 mg/dL (2.5-4.5) 08/01/16 06:20 Magnesium 1.6 mg/dL (1.7-2.2) L 08/01/16 06:20 Total Bilirubin 0.5 mg/dL (0.2-1.3) 08/01/16 06:20 AST 24 U/L (15-59) 08/01/16 06:20 ALT 16 U/L (7-56) 08/01/16 06:20 Alkaline Phosphatase 103 U/L (38-133) 08/01/16 06:20 Lactate Dehydrogenase 353 U/L (333-699) 07/30/16 07:33 Total Creatine Kinase 126 U/L (35-230) 07/30/16 07:33 Troponin I 0.13 ng/mL H* D 07/30/16 07:33 Total Protein 6.8 g/dL (5.8-8.3) 08/01/16 06:20 Albumin 3.5 g/dL (3.0-4.8) 08/01/16 06:20 Globulin 3.3 gm/dL 08/01/16 06:20 Albumin/Globulin Ratio 1.1 (1.1-1.8) 08/01/16 06:20 Triglycerides 65 mg/dL (35-160) 07/29/16 12:30 Cholesterol 155 mg/dL (130-200) 07/29/16 12:30 LDL Cholesterol Direct 67 mg/dL (0-129) 07/29/16 12:30 HDL Cholesterol 56 mg/dL (29-60) 07/29/16 12:30 TSH 3rd Generation 1.47 mIU/mL (0.46-4.68) 07/29/16 12:30 Cortisol AM Sample 9.5 ug/dL (4.46-22.7) 07/31/16 07:30 - Hospital Course Hospital Course: HPI: Pt is a 61 year old male with a PMHx of HTN, Type 2 Diabetes Mellitus, hyperlipidemia, and cerebrovascular accident in 2007 who presented to the ED with complaints of palpitations, headache, and elevated blood pressure as measures in his doctor's office the day of admission. Hospital Course: Pt presented with hypertensive urgency. EKG showed PVCs, prolonged QT; as per Dr. Hubbard (please see full report). Cardiac enzymes were 0.01, 0.20, 0.13, respectively. D-dimer was 1.21. CT-Angio of chest showed no evidence of PE (please see full report). Cardiology, Dr. Carrera, was consulted. PT's BP was in the 200s systolic and 100s diastolic. Pt was stated on aspirin, lipitor, lovenox, lopressor, zestril, and vasotec. Head CT revealed chronic ischemic changes (please see full report). Pt had a cardiac catherization which revealed a 50% proximal left anterior descending artery disease and a 50% distal right coronary artery disease. No stents were placed. Medical management as per cardiology, Dr. Carrera. Aspirin, statin, and beta lang therapy as per Dr. Carrera. Pt was seen by tan room supervisor, Dr. Roew. Pt's blood was better controlled, and pt was discharged on new scripts, and told to follow up with Dr. Rowe for follow up. Discharge Exam - Head Exam Head Exam: ATRAUMATIC, NORMOCEPHALIC Discharge Plan - Discharge Medications Prescriptions: Spironolactone [Aldactone] 25 mg PO BID #60 tab Aspirin [Ecotrin] 81 mg PO DAILY #30 tabec Glipizide [Glipizide ER] 5 mg PO BID #10 tab.er.24 Metoprolol Tartrate [Lopressor] 25 mg PO BID #60 tab Lisinopril [Zestril] 40 mg PO DAILY #30 tab - Follow Up Plan Condition: GOOD Disposition: HOME/ ROUTINE Instructions: Palpitations (GEN), Hypertension (GEN) Additional Instructions: Please follow up with tan room supervisor and hypertension specialist, Dr. Rowe, within one week. Please take newly prescribed medications, lisinopril, aldactone , metoprolol, and low dose aspirin, as prescribed. Please also resume home medications, clonidine and simvastatin. Please also follow up with primary medical doctor. If symptoms worsen, or new symptoms arise, please return to the hospital. stop metformin / glipizide combination for 2 more days. Referrals: Michael Rowe MD [Staff Provider] - <Sean Contreras - Last Filed: 08/02/16 16:10> Provider - Provider Date of Admission: 07/30/16 07:47 Attending physician: Sean Contreras MD Time Spent in preparation of Discharge (in minutes): 35 Hospital Course - Lab Results Lab Results: Most Recent Lab Values WBC 5.0 10^3/ul (4.5-11.0) D 08/01/16 06:20 RBC 4.95 10^6/uL (3.5-6.1) 08/01/16 06:20 Hgb 13.4 gm/dL (14.0-18.0) L 08/01/16 06:20 Hct 39.2 % (42.0-52.0) L 08/01/16 06:20 MCV 79.2 fL (80.0-105.0) L 08/01/16 06:20 MCH 27.1 pg (25.0-35.0) 08/01/16 06:20 MCHC 34.2 g/dl (31.0-37.0) 08/01/16 06:20 RDW 12.9 % (11.5-14.5) 08/01/16 06:20 Plt Count 164 10^3/uL (120.0-450.0) 08/01/16 06:20 MPV 10.4 fl (7.0-11.0) 08/01/16 06:20 Gran % 66.7 % (50.0-68.0) 08/01/16 06:20 Lymph % (Auto) 22.6 % (22.0-35.0) 08/01/16 06:20 Newton % (Auto) 8.9 % (1.0-6.0) H 08/01/16 06:20 Eos % (Auto) 1.2 % (1.5-5.0) L 08/01/16 06:20 Baso % (Auto) 0.6 % (0.0-3.0) 08/01/16 06:20 Gran # 3.36 (1.4-6.5) 08/01/16 06:20 Lymph # 1.1 (1.2-3.4) L 08/01/16 06:20 Newton # 0.5 (0.1-0.6) 08/01/16 06:20 Eos # 0.1 (0.0-0.7) 08/01/16 06:20 Baso # 0.03 K/mm3 (0.0-2.0) 08/01/16 06:20 PT 11.0 Seconds (9.9-11.8) 07/29/16 17:05 INR 1.02 (0.93-1.08) 07/29/16 17:05 APTT 25.0 Seconds (23.7-30.8) 07/29/16 17:05 D-Dimer, Quantitative 1.21 mg/L FEU (0-0.50) H 07/29/16 17:05 Sodium 137 mmol/L (132-148) 08/01/16 06:20 Potassium 3.8 mmol/L (3.6-5.0) 08/01/16 06:20 Chloride 101 mmol/L (98-107) 08/01/16 06:20 Carbon Dioxide 27 mmol/L (21-33) 08/01/16 06:20 Anion Gap 13 (10-20) 08/01/16 06:20 BUN 19 mg/dL (7-21) 08/01/16 06:20 Creatinine 1.2 mg/dL (0.5-1.4) 08/01/16 06:20 Est GFR ( Amer) > 60 08/01/16 06:20 Est GFR (Non-Af Amer) > 60 08/01/16 06:20 POC Glucose (mg/dL) 289 mg/dL (65-110) H 08/01/16 17:41 Random Glucose 204 mg/dL (70-110) H 08/01/16 06:20 Calcium 8.7 mg/dL (8.4-10.5) 08/01/16 06:20 Phosphorus 3.7 mg/dL (2.5-4.5) 08/01/16 06:20 Magnesium 1.6 mg/dL (1.7-2.2) L 08/01/16 06:20 Total Bilirubin 0.5 mg/dL (0.2-1.3) 08/01/16 06:20 AST 24 U/L (15-59) 08/01/16 06:20 ALT 16 U/L (7-56) 08/01/16 06:20 Alkaline Phosphatase 103 U/L (38-133) 08/01/16 06:20 Lactate Dehydrogenase 353 U/L (333-699) 07/30/16 07:33 Total Creatine Kinase 126 U/L (35-230) 07/30/16 07:33 Troponin I 0.13 ng/mL H* D 07/30/16 07:33 Total Protein 6.8 g/dL (5.8-8.3) 08/01/16 06:20 Albumin 3.5 g/dL (3.0-4.8) 08/01/16 06:20 Globulin 3.3 gm/dL 08/01/16 06:20 Albumin/Globulin Ratio 1.1 (1.1-1.8) 08/01/16 06:20 Triglycerides 65 mg/dL (35-160) 07/29/16 12:30 Cholesterol 155 mg/dL (130-200) 07/29/16 12:30 LDL Cholesterol Direct 67 mg/dL (0-129) 07/29/16 12:30 HDL Cholesterol 56 mg/dL (29-60) 07/29/16 12:30 TSH 3rd Generation 1.47 mIU/mL (0.46-4.68) 07/29/16 12:30 Cortisol AM Sample 9.5 ug/dL (4.46-22.7) 07/31/16 07:30 ACTH 30 pg/mL (6-50) 07/31/16 06:00 - Hospital Course Hospital Course: attending note; patient seen and examined with resident. Patient is a 61 year old male with history of HTN, DM-2, dyslipidemia, CVA with residual right sided weakness who got admitted for evaluation of palpitations and uncontrolled HTN . patient started having palpitation after started on hydralazine as per patient. patient is adjusting his blood pressure medication. Norvasc gives him leg edema so he stopped it. Hydralazine gives him palpitations. Troponin elevation was noted. Treated with aspirin, plavix and lovenox. PE ruled out. CT angios negative. Dopplers negative. Status post cardiac cath. Patient was evaluated by nephrology DR. Rowe. Medications suggested. patient will be discharged with by mouth Aldactone, clonidine, metoprolol and lisinopril. TSH normal. Cortisol normal. Advised to follow-up with nephrology to exclude pheochromocytoma. urine catecholamines, metanephrines, aldosterone, renin, acth ordered. patient is advised to follow-up with PMD. Diagnosis; hypertension Diabetes Dyslipidemia CVA Status post cardiac cath.
--- NOTE | 2016-08-01 16:15 | CARD ---
APPROVED REPORT EXAM: Two-dimensional and M-mode echocardiogram with Doppler and color Doppler. INDICATION Palpitations 2D DIMENSIONS Left Atrium (2D)3.4 (1.6-4.0cm)IVSd1.3 (0.7-1.1cm) LVDd3.7 (3.9-5.9cm)PWd1.7 (0.7-1.1cm) LVDs2.5 (2.5-4.0cm)FS (%) 31.6 % LVEF (%)60.5 (>50%) M-Mode DIMENSIONS Aortic Root2.70 (2.2-3.7cm)Aortic Cusp Exc.1.30 (1.5-2.0cm) Aortic Valve AoV Peak Sujsfvzz801.0cm/Lizz Peak GR.12mmHg Mitral Valve MV E Svobuwfc85.9cm/sMV A Rfspoydb90.6cm/sE/A ratio1.1 TDI E/Lateral E'0.0E/Medial E'0.0 Tricuspid Valve TR Peak Gjwzlepd960xh/sRAP [id number] Peak Gr.5mmHg [id number] LEFT VENTRICLE The left ventricle is normal size. There is mild to moderate concentric left ventricular hypertrophy. The left ventricular function is normal. The left ventricular ejection fraction is within the normal range. There is normal LV segmental wall motion. Transmitral Doppler flow pattern is Grade I-abnormal relaxation pattern. RIGHT VENTRICLE The right ventricle is normal size. There is normal right ventricular wall thickness. The right ventricular systolic function is normal. ATRIA The left atrium size is normal. The right atrium size is normal. AORTIC VALVE The aortic valve is mildly thickened. There is mild aortic regurgitation. MITRAL VALVE The mitral valve is mildly thickened. Mitral regurgitation is mild. TRICUSPID VALVE There is no pulmonary hypertension. PULMONIC VALVE There is trace to mild pulmonic valvular regurgitation. GREAT VESSELS The aortic root is normal in size. The IVC is normal in size and collapses >50% with inspiration. PERICARDIAL EFFUSION There is no pericardial effusion. <Conclusion> The left ventricle is normal size. There is mild to moderate concentric left ventricular hypertrophy. The left ventricular function is normal. The left ventricular ejection fraction is within the normal range. There is normal LV segmental wall motion. Transmitral Doppler flow pattern is Grade I-abnormal relaxation pattern. There is mild aortic regurgitation. Mitral regurgitation is mild.
[2016-08-01 18:56] VITALS: BP 170/78
--- NOTE | 2016-08-01 22:19 | US ---
HISTORY: Leg pain and swelling. Evaluate for DVT PHYSICIAN(S): Syd Holland MD. TECHNIQUE: Duplex sonography and color-flow Doppler with graded compression were used to evaluate the deep venous systems of both lower extremities. FINDINGS: The visualized deep venous systems of both lower extremities are sonographically normal and compressible. Normal wave forms and augmentation are seen. There is no sonographic evidence for deep venous thrombosis in the visualized segments of both lower extremities. IMPRESSION: No sonographic evidence for deep venous thrombosis in the visualized segments of both lower extremities.
--- NOTE | 2016-08-02 08:20 | CON ---
DATE: 08/01/2016 CONSULTATION REQUESTED BY: Dr. Madison Germain. REASON FOR CONSULTATION: Hypokalemia, uncontrolled hypertension. HISTORY OF PRESENT ILLNESS: This is a patient previously unknown to me. This 61-year-old gentleman presented to [facility] Emergency Department on 07/29/2016 with a complaint of palpitat ions. Of note, his blood pressure has been increasing for the last 2-3 weeks or so which resulted in the patient's primary care physician attempting to increase his medications as an outpatient; delmi norman, on account of the palpitations that had developed, patient presented to the ED on 07/29/2016. The patient initially attributed the palpitations to the recent addition of hydralazine. On arrival to the ED, he was noted to have a blood pressure of 179/114 with a heart rate of 131, breathing at 20 br eaths per minute with an oxygen saturation of 99%. Oral temperature was 97.[address] udies did not reveal any anemia, and a CBC with diff was unremarkable. He was noted to have hypokale van at 3.5, however; bicarbonate was within normal limits at 26. Troponin was initially 0.01 but sub sequently increased to 0.20. EKG revealed sinus tachycardia with 1 premature ventricular contraction and nonspecific ST-T wave changes. His QT interval was noted to be prolonged, however. The patient denied missing any doses of his medications and he denied the use of any sympathomimetic agents or d econgestants. He also denied the use of any illicit drugs, alcohol or tobacco use. He underwent a C T scan of his head after complaining of some dizziness which revealed chronic ischemic changes but no acute pathology. He also underwent a CT angiogram which revealed cardiomegaly as well as subcentime ter mediastinal lymph nodes that were nonspecific, but no evidence of pulmonary embolism. On account of the increase in troponin, the patient also underwent cardiac catheterization which revealed a 50% proximal left anterior descending disease and 50% distal right coronary artery disease for which it was advocated for the patient to remain on medical therapy. Ejection fraction was estimated at 55%. The patient also has a lower extremity venous Doppler, which was negative for DVTs. Since having be en admitted, the patient's blood pressure went as high as 203/94. The heart rate has fluctuated as w ell and has been as low as 42 and as high as 117 beats per minute. REVIEW OF SYSTEMS: Taken across all 10 systems and 14 points and was negative unless stated otherwis e above. PAST MEDICAL HISTORY: Significant for hypertension, type 2 diabetes mellitus that is noninsulin depe ndent, and history of cerebrovascular accident with residual right-sided weakness. MEDICATIONS: That the patient had been taking at home and prior to admission were clonidine 0.2 mg o rally every 8 hours, simvastatin 20 mg orally nightly, enalapril 20 mg orally twice daily, aspirin 81 mg orally daily and glipizide/metformin 2.5/500 orally twice daily. ALLERGIES: The patient had no known drug allergies. SOCIAL HISTORY: Notable for the patient having been a smoker, although he quit 30-40 years ago. He drinks alcohol only socially but denies drinking to excess and he denied any illicit drug use. FAMILY HISTORY: Significant for the patient's father having had coronary artery disease with myocard ial infarction. His mother had type 2 diabetes mellitus. PHYSICAL EXAMINATION: GENERAL APPEARANCE: I saw the patient sitting up in a chair. He was in no acute distress when I saw him and appeared to be fairly comfortable. VITAL SIGNS: Blood pressure was 158/81 with a heart rate of 53, oral temperature 97.9, respiratory r ate is 18, oxygen saturation 97% on room air. I's and O's were 2100/1050. HEENT: The patient was normocephalic and atraumatic. There was no sinus tenderness. Neck was suppl e with a full range of motion. Trachea was midline and freely movable. Thyroid was nontender nor wa s it enlarged. There was no jugular venous distention. Conjunctivae were neither pale nor were they icteric. CHEST: Lung huang on my exam were grossly clear to auscultation. There were no rales, rhonchi or w heezing. CARDIAC: Regular rate and rhythm without any rubs. ABDOMEN: Soft, mildly distended, but nontender. There was no rebounding, guarding or rigidity. The re was no hepatosplenomegaly. EXTREMITIES: Had no significant edema. NEUROLOGIC: He was nonfocal. VASCULAR: No bruits. SKIN: Intact. LABORATORY STUDIES: Sodium is 137 today with a potassium of 3.8, chloride 101, bicarbonate 27, BUN/c reatinine is 19/1.2 with a glucose of 204. Calcium is 8.7, phosphorus is 3.7, magnesium is 1.6. Tot al protein/albumin is 6.8/3.5. AST/ALT is 24/16, alkaline phosphatase is 103. IMAGING: As stated above. IMPRESSION AND PLAN: The patient is a 61-year-old gentleman with a known history of type 2 diabetes mellitus that is noninsulin-dependent, hypertension, history of cerebrovascular accident with residua l right-sided weakness, prior history of tobacco use, admitted with palpitations and found to have un controlled hypertension during this hospitalization with heart rate that has varied between bradycard ia and tachycardia. Of note, given the fact that the patient appears to have paroxysms of hypertensi on, pheochromocytoma should be ruled out and plasma total and fractionated metanephrines have been se nt to the lab, the results of which are still pending. He was noted to be hypokalemic on presentatio n; therefore, hyperaldosteronism needs to be ruled out, and plasma rennin activity as well as plasma aldosterone concentration have also been sent to the lab. Since these labs have been sent, we can st art the patient on spironolactone 25 mg orally twice daily. Given the fact that he coronary artery d isease as manifest by the cardiac catheterization he had during this admission, I would continue him on metoprolol 25 mg orally twice daily. Additionally, I would also place the patient on amlodipine 5 mg orally daily as well. Given the fact that he has fairly normal renal function, we have plenty of opportunity to continue to titrate up his spironolactone, and as we do so I would begin to taper his clonidine to off. If he is noted to have LVH, then we should continue his RAÚL inhibitor or substitu te it with an angiotensin receptor lang as well. In the meantime, the patient was encouraged to a dhere to a low sodium diet and to increase his potassium intake since natural dietary potassium is al so a means of helping to decrease his blood pressure. Hypomagnesemia may be secondary to diabetes or may have represented the result of magnesium losses in the urine from uncontrolled hypertension, and I agree with giving him magnesium supplementation at this time. The patient will be following up wi th me in the office. Michael Rowe MD cc: [id number] TT: 08/02/2016 08:19:57 Confirmation # [id number] Dictation # [id number] mn
== END 2016-08-01 20:23 | disposition home or self-care (01) | DRG 281 ==
LOC: ED 11:16 → ERH 14:00 → 2RSO 15:21 → OBSVTOIN 07-30 07:47
PROVIDERS: ADMIT Hospitalist; ATTEND Internal Medicine
PROC: 4A023N7 Measurement of Cardiac Sampling and Pressure, Left Heart, Percutaneous Approach (ICD-10-PCS; principal; 2016-07-31)
PROC: B2111ZZ Fluoroscopy of Multiple Coronary Arteries using Low Osmolar Contrast (ICD-10-PCS; 2016-07-31)
PROC: B2151ZZ Fluoroscopy of Left Heart using Low Osmolar Contrast (ICD-10-PCS; 2016-07-31)
DX: I21.4 Non-ST elevation (NSTEMI) myocardial infarction (principal); I69.351 Hemiplegia and hemiparesis following cerebral infarction affecting right dominant side; E11.9 Type 2 diabetes mellitus without complications; I25.10 Atherosclerotic heart disease of native coronary artery without angina pectoris; E78.5 Hyperlipidemia, unspecified; E87.6 Hypokalemia; E83.42 Hypomagnesemia; I16.0 Hypertensive urgency; I10 Essential (primary) hypertension; R61 Generalized hyperhidrosis; R51 Headache; I49.3 Ventricular premature depolarization; Z87.891 Personal history of nicotine dependence; Z79.82 Long term (current) use of aspirin; Z83.3 Family history of diabetes mellitus; Z82.49 Family history of ischemic heart disease and other diseases of the circulatory system

== ENCOUNTER 2016-08-01 20:42 | Inpatient (IN) | payer MEDICARE, MEDICAID ==
--- NOTE | 2016-08-01 21:27 | ED PDOC ---
Arrival/HPI - General Chief Complaint: Dizziness/Lightheaded Time Seen by Provider: 08/01/16 21:16 Historian: Patient - History of Present Illness Narrative History of Present Illness (Text): 08/01/16 21:26 Edmar Law is a 61 year old male, whose past medical history includes hypertension, diabetes, CVA, and recent cardiac catheterization on 07/31/2016, who presents to the Emergency department complaining of dizziness. Patient states he was recently discharged from the hospital earlier today following treatment of NSTEMI. Patient states he was riding in the car on his way home when he began feeling increasingly dizzy, worsened with walking. Patient notes his blood pressure was very elevated on arrival to the Emergency department. Patient denies any fever, chills, chest pain, shortness of breath, nausea, vomiting, diarrhea, urinary symptoms, back pain, neck pain, headache, vision changes, focal neurological deficits, or any other complaints. Time/Duration: Other (tonight) Symptom Onset: Gradual Symptom Course: Unchanged Activities at Onset: Rest, Light Context: Home Past Medical History - Provider Review Nursing Documentation Reviewed: Yes - Past History Past History: No Previous - Infectious Disease Hx of Infectious Diseases: None - Tetanus Immunization Tetanus Immunization: Unknown - Cardiac Hx Cardiac Disorders: Yes Hx Hypertension: Yes - Pulmonary Hx Respiratory Disorders: Yes (SMOKED CIGARETTES QUIT 30-40 YRS AGO) - Neurological Hx Neurological Disorder: Yes HX Cerebrovascular Accident: Yes (RIGHT ARM CONTRACTED) - HEENT Hx HEENT Disorder: Yes Other/Comment: WEARS RX GLASSES - Renal Hx Renal Disorder: Yes Other/Comment: frequency - Endocrine/Metabolic Hx Diabetes Mellitus Type 1: Yes - Hematological/Oncological Hx Blood Disorders: No - Integumentary Hx Dermatological Disorder: No - Musculoskeletal/Rheumatological Hx Musculoskeletal Disorders: Yes (RIGHT ARM WEAK WITH CONTRACTURE) Hx Falls: No - Psychiatric Hx Psychophysiologic Disorder: Yes Hx Substance Use: No Other/Comment: BEER OCCASIONALLY - Past Surgical History Past Surgical History: No Previous - Anesthesia Hx Anesthesia: No - Suicidal Assessment Feels Threatened In Home Enviroment: No Family/Social History - Physician Review Nursing Documentation Reviewed: Yes Family/Social History: No Known Family HX Smoking Status: Former Smoker Hx Alcohol Use: Yes (OCCASIONAL BEER) Hx Substance Use: No Hx Substance Use Treatment: No Allergies/Home Meds Allergies/Adverse Reactions: Allergies No Known Allergies Allergy (Verified 08/01/16 21:07) Home Medications: Home Meds Medication Instructions Recorded Confirmed Simvastatin [Zocor] 20 mg PO HS 07/29/16 08/01/16 cloNIDine [Catapres] 0.2 mg PO Q8 07/29/16 08/01/16 Review of Systems - Physician Review All systems were reviewed & negative as marked: Yes - Review of Systems Constitutional: Normal Eyes: Normal ENT: Normal Respiratory: Normal. absent: SOB, Cough Cardiovascular: Normal. absent: Chest Pain Gastrointestinal: Normal. absent: Abdominal Pain, Diarrhea, Nausea, Vomiting Genitourinary Male: Normal. absent: Dysuria, Frequency, Hematuria, Urinary Output Changes Musculoskeletal: Normal. absent: Back Pain, Neck Pain Skin: Normal. absent: Rash Neurological: Dizziness. absent: Headache Endocrine: Normal Hemo/Lymphatic: Normal Psychiatric: Normal Physical Exam Vital Signs Reviewed: Yes Vital Signs Temp Pulse Resp BP Pulse Ox 08/02/16 01:51 165/94 H 08/02/16 01:30 52 L 18 213/98 H 97 08/02/16 01:00 51 L 16 228/99 H 96 08/02/16 00:20 78 14 226/110 H 96 08/02/16 00:05 50 L 18 224/94 H 96 08/01/16 23:50 50 L 18 227/92 H 96 08/01/16 23:49 227/92 H 08/01/16 23:35 51 L 16 231/96 H 96 08/01/16 23:20 52 L 18 228/97 H 95 08/01/16 23:05 51 L 16 231/96 H 96 08/01/16 22:50 51 L 18 236/96 H 96 08/01/16 22:28 246/101 H 08/01/16 22:01 248/96 H 08/01/16 21:01 98 F 52 L 20 220/95 H 99 Temperature: Afebrile Blood Pressure: Normal Pulse: Regular Respiratory Rate: Normal Appearance: Positive for: Well-Appearing, Non-Toxic, Comfortable Pain Distress: None Mental Status: Positive for: Alert and Oriented X 3 - Systems Exam Head: Present: Atraumatic, Normocephalic Pupils: Present: PERRL Extroacular Muscles: Present: EOMI Conjunctiva: Present: Normal Mouth: Present: Moist Mucous Membranes Neck: Present: Normal Range of Motion Respiratory/Chest: Present: Clear to Auscultation, Good Air Exchange. No: Respiratory Distress, Accessory Muscle Use Cardiovascular: Present: Regular Rate and Rhythm, Normal S1, S2. No: Murmurs Abdomen: Present: Normal Bowel Sounds. No: Tenderness, Distention, Peritoneal Signs Back: Present: Normal Inspection Upper Extremity: Present: Normal Inspection. No: Cyanosis, Edema Lower Extremity: Present: Normal Inspection. No: Edema Neurological: Present: GCS=15, CN II-XII Intact, Speech Normal Skin: Present: Warm, Dry, Normal Color. No: Rashes Psychiatric: Present: Alert, Oriented x 3, Normal Insight, Normal Concentration Medical Decision Making ED Course and Treatment: 08/01/16 21:26 Impression: 61 year old male complaining of dizziness tonight. Differential Diagnosis included but are not limited to: uncontrolled hypertension Plan: -- EKG -- Chest X-ray -- Labs, cardiac enzymes -- Catapres -- Reassess and disposition Prior Visits: Notes and results from previous visits were reviewed. On 07/29/2016, pt was seen in the Emergency department for hypertension, palpitations, and light-headedness. Pt was admitted to the hospital for further evaluation and had cardiac catheterization performed on 07/31/2016. Progress Notes: Reviewed EKG, sinus bradycardia at 57 bpm. No acute changes. 08/01/16 21:51 Reviewed radiology, Chest X-ray shows no active disease. 08/02/16 01:[address] Estrada, who is aware and agrees with plan. Accepts pt in to hospitalist service. Case discussed with Dr. Mar, medical office administrator business information analyst, who is aware and agrees with plan. 08/02/16 02:[address] Estrada, present in Emergency department to evaluate pt. Pt will be admitted to ICU for uncontrolled hypertension and dizziness. Pt is no acute distress. Discussed results and hospital admission plan with pt, who is aware and verbalizes understanding. - Critical Care Critical Care Minutes: 30 minutes - Lab Interpretations Lab Results: 08/01/16 21:55 08/01/16 21:55 Lab Results 08/01/16 21:55: WBC 5.1, RBC 5.16, Hgb 14.2, Hct 40.8 L, MCV 79.1 L, MCH 27.5, MCHC 34.8, RDW 13.0, Plt Count 197, MPV 10.6, PT 10.7, INR 0.99, APTT 25.7, Sodium 139, Potassium 4.5, Chloride 102, Carbon Dioxide 27, Anion Gap 15, BUN 14 , Creatinine 1.0, Est GFR ( Amer) > 60, Est GFR (Non-Af Amer) > 60, Random Glucose 119 H, Calcium 9.1, Total Bilirubin 0.8, AST 34, ALT 15, Alkaline Phosphatase 94, Lactate Dehydrogenase 552, Total Creatine Kinase 96, Troponin I 0.05 D, Total Protein 8.1, Albumin 4.3, Globulin 3.9, Albumin/ Globulin Ratio 1.1 I have reviewed the lab results: Yes - RAD Interpretation Radiology Orders: 08/01/16 21:27 CHEST PORTABLE [RAD] Stat Arc And Gas Welder: ED Physician - EKG Interpretation Interpreted by ED Physician: Yes Type: 12 lead EKG - Medication Orders Current Medication Orders: Acetaminophen (Tylenol 325mg Tab) 650 mg PO Q6H PRN PRN Reason: Headache Aspirin (Ecotrin) 81 mg PO DAILY CHEY Atorvastatin Calcium (Lipitor) 10 mg PO HS CHEY Sodium Nitroprusside 50 mg/ (Dextrose) 252 mls @ 5.96 mls/hr IV .Q24H PRN; Protocol; 0.3 MCG/KG/MIN PRN Reason: TITRATE PER MD ORDER Last Admin: 08/02/16 02:58 Dose: 5.96 MLS/HR Titration Intervention Document 08/02/16 02:58 YP (Rec: 08/02/16 02:59 YP [id number]) Titration Intake Container Volume 252 Titration Dosing Titration Dose 0.3 IV Rate 5.96 Intake/Decrease Start eMAR Start Stop Document 08/02/16 02:58 YP (Rec: 08/02/16 02:59 YP [id number]) Intravenous Solution Start Date 08/02/16 Start Time 02:59 Discontinued Medications Enalaprilat (Vasotec Iv) 1.25 mg IVP STAT STA Stop: 08/01/16 22:23 Last Admin: 08/01/16 22:28 Dose: 1.25 MG MAR Blood Pressure Document 08/01/16 22:28 YP (Rec: 08/01/16 22:28 YP [id number]) Blood Pressure Blood Pressure (100/60-150/90 mm Hg) 246/101 IVP Administration Document 08/01/16 22:28 YP (Rec: 08/01/16 22:28 YP [id number]) Charges for Administration # of IVP Administrations 1 Enalaprilat (Vasotec Iv) 1.25 mg IVP STAT STA Stop: 08/01/16 23:29 Last Admin: 08/01/16 23:49 Dose: 1.25 MG MAR Blood Pressure Document 08/01/16 23:49 YP (Rec: 08/01/16 23:50 YP [id number]) Blood Pressure Blood Pressure (100/60-150/90 mm Hg) 227/92 IVP Administration Document 08/01/16 23:49 YP (Rec: 08/01/16 23:50 YP [id number]) Charges for Administration # of IVP Administrations 1 Enalaprilat (Vasotec Iv) 1.25 mg IVP STAT STA Stop: 08/02/16 01:30 Last Admin: 08/02/16 01:51 Dose: Not Given Non-Admin Reason: BP Parameters Not Met MAR Blood Pressure Document 08/02/16 01:51 YP (Rec: 08/02/16 01:51 YP [id number]) Blood Pressure Blood Pressure (100/60-150/90 mm Hg) 165/94 Nitroglycerin (Nitro-Bid 2% Oint) 1 ea TOP ONCE STA Stop: 08/01/16 23:54 Last Admin: 08/02/16 00:10 Dose: 1 EA - Scribe Statement The provider has reviewed the documentation as recorded by the Morales Osborn Provider Attestation: All medical record entries made by the Morales were at my direction and personally dictated by me. I have reviewed the chart and agree that the record accurately reflects my personal performance of the history, physical exam, medical decision making, and the department course for this patient. I have also personally directed, reviewed, and agree with the discharge instructions and disposition. Disposition/Present on Arrival - Present on Arrival Any Indicators Present on Arrival: No History of DVT/PE: No History of Uncontrolled Diabetes: No Urinary Catheter: No History of Decub. Ulcer: No History Surgical Site Infection Following: None - Disposition Have Diagnosis and Disposition been Completed?: Yes Diagnosis: Uncontrolled hypertension, dizzy Disposition: HOSPITALIZED Disposition Time: :59 Patient Problems: Current Active Problems Problem Status Diagnosed Hypertension Acute Palpitations Acute Tachycardia Acute Uncontrolled hypertension Acute dizzy Acute Condition: STABLE
[2016-08-01] MEDS ORDERED: Labetalol 5 mg/ml Inj 20ML IV STA (21:48)
[2016-08-01 22:07] LABS: HEMATOCRIT 40.8 % (42.0-52.0); MEAN CELL VOLUME 79.1 fL (80.0-105.0); MEAN CORPUSCULAR HEMOGLOBIN 27.5 pg (25.0-35.0); MEAN CORPUSCULAR HGB CONC 34.8 g/dl (31.0-37.0); MEAN PLATELET VOLUME 10.6 fl (7.0-11.0); WHITE BLOOD COUNT 5.1 [, 10^3/ul] (4.5-11.0)
[2016-08-01] MEDS ORDERED: Nicardipine 20 MG/200 ML 200 ML IV PRN (22:14)
[2016-08-01 22:15] LABS: ALB/GLOB RATIO 1.1 (1.1-1.8); ALKALINE PHOSPHATASE 94 U/L (38-133); ALT/SGPT 15 U/L (7-56); AST/SGOT 34 U/L (15-59); BILIRUBIN,TOTAL 0.8 mg/dL (0.2-1.3); BLOOD UREA NITROGEN 14 mg/dL (7-21); CALCIUM 9.1 mg/dL (8.4-10.5); CARBON DIOXIDE 27 mmol/L (21-33); CHLORIDE 102 mmol/L (98-107); GFR AFRICAN-AMERICAN > 60; GLUCOSE,RANDOM 119 mg/dL (70-110); SODIUM 139 mmol/L (132-148); TOTAL PROTEIN 8.1 g/dL (5.8-8.3)
[2016-08-01 22:17] LABS: INR 0.99 (0.93-1.08); PARTIAL THROMBOPLASTIN TIME 25.7 Seconds (23.7-30.8)
[2016-08-01 22:18] LABS: POTASSIUM 4.5 mmol/L (3.6-5.0)
[2016-08-01] MEDS ORDERED: EnalaprilAT 1.25 mg/ml Inj IVP STA ×2 (22:22→23:28)
[2016-08-01 22:27] LABS: TROPONIN I 0.05 ng/mL
[2016-08-01] MEDS ORDERED: Nitroglycerin 2% Ointment Foilpak UD TOP STA (23:53)
[2016-08-02] MEDS: EnalaprilAT 1.25 mg/ml Inj IVP STA ×2 (01:47→01:51)
--- NOTE | 2016-08-02 02:39 | CP.PCM.HP ---
<Zoltan Harrison - Last Filed: 08/02/16 05:22> History of Present Illness - History of Present Illness History of Present Illness: CC: Dizziness with elevated blood pressure HPI: This is a 61 yo M with PMH of HTN, DM type 2, and a prior stroke with right-sided weakness who represents to the ED with dizziness and elevated BP (SBP > 200). He was [place] yesterday evening [place] [facility] [place] being admitted for HTN with palpitations and later NSTEMI, and on the way home, he became acutely dizzy with concurrent sense of "not feeling right." He returned to the ED for re-evaluation, and was found to have a BP of 220/95 in the ED. Pressure remained elevated despite IV Vasotec, but eventually improved after repeat dose of IV Vasotec and Nitro paste. At time of exam, the dizziness is resolved, and he has no complaints. Denies chest pain, shortness of breath, vomiting, changes in vision, new focal weakness, syncope, or sensation of room spinning. PMH: HTN, DM type 2, prior CVA with residual right-sided weakness PSH: denies SHx: former smoker quit 30-40 yo, social alcohol use, denies illicits/IVDA FHx: CT (father), DM (mother) Present on Admission - Present on Admission Any Indicators Present on Admission: No History of DVT/PE: No History of Uncontrolled Diabetes: No Urinary Catheter: No Review of Systems - Constitutional Constitutional: absent: Chills, Fever, Headache, Weakness - EENT Eyes: absent: Blurred Vision, Change in Vision, Loss of Vision Ears: Dizziness Nose/Mouth/Throat: absent: Dysphagia, Sore Throat, Neck Pain - Cardiovascular Cardiovascular: Lightheadedness. absent: Chest Pain, Dyspnea, Palpitations, Syncope - Respiratory Respiratory: absent: Cough, Dyspnea, Hemoptysis - Gastrointestinal Gastrointestinal: absent: Abdominal Pain, Constipation, Diarrhea, Nausea, Vomiting - Genitourinary Genitourinary: absent: Difficulty Urinating, Dysuria, Flank Pain, Hematuria - Musculoskeletal Musculoskeletal: absent: Neck Pain, Numbness - Integumentary Integumentary: absent: Pruritus, Rash - Neurological Neurological: Dizziness, Focal Weakness (longstanding residual right sided weakness s/p CVA, at baseline). absent: Numbness, Loss of Vision, Syncope, Weakness, Other Visual Disturbances - Psychiatric Psychiatric: Anxiety (regarding his blood pressure) - Endocrine Endocrine: absent: Fatigue, Palpitations Past Patient History - Infectious Disease Hx of Infectious Diseases: None - Tetanus Immunizations Tetanus Immunization: Unknown - Past Social History Smoking Status: Former Smoker - CARDIAC Hx Cardiac Disorders: Yes Hx Hypertension: Yes - PULMONARY Hx Respiratory Disorders: Yes (SMOKED CIGARETTES QUIT 30-40 YRS AGO) - NEUROLOGICAL Hx Neurological Disorder: Yes HX Cerebrovascular Accident: Yes (RIGHT ARM CONTRACTED) - HEENT Hx HEENT Problems: Yes Other/Comment: WEARS RX GLASSES - RENAL Hx Chronic Kidney Disease: Yes Other/Comment: frequency - ENDOCRINE/METABOLIC Hx Diabetes Mellitus Type 1: Yes - HEMATOLOGICAL/ONCOLOGICAL Hx Blood Disorders: No - INTEGUMENTARY Hx Dermatological Problems: No - MUSCULOSKELETAL/RHEUMATOLOGICAL Hx Musculoskeletal Disorders: Yes (RIGHT ARM WEAK WITH CONTRACTURE) Hx Falls: No - PSYCHIATRIC Hx Psychophysiologic Disorder: Yes Hx Substance Use: No Other/Comment: BEER OCCASIONALLY - SURGICAL HISTORY Hx Surgeries: No - ANESTHESIA Hx Anesthesia: No Meds Allergies/Adverse Reactions: Allergies Allergy/AdvReac Type Severity Reaction Status Date / Time No Known Allergies Allergy Verified 08/01/16 21:07 Physical Exam - Constitutional Appears: Well, Non-toxic, No Acute Distress - Head Exam Head Exam: ATRAUMATIC, NORMAL INSPECTION, NORMOCEPHALIC - Eye Exam Eye Exam: EOMI, Normal appearance. absent: Conjunctival injection, Scleral icterus Pupil Exam: absent: Irregular, Unequal - ENT Exam ENT Exam: Mucous Membranes Moist - Neck Exam Neck exam: Negative for: Tenderness, Thyromegaly - Respiratory Exam Respiratory Exam: Clear to Auscultation Bilateral, NORMAL BREATHING PATTERN. absent: Accessory Muscle Use, Chest Wall Tenderness, Decreased Breath Sounds, Rales, Rhonchi, Wheezes - Cardiovascular Exam Cardiovascular Exam: Bradycardia, REGULAR RHYTHM. absent: Tachycardia, Irregular Rhythm, RRR, +S1, +S2, +S4 Additional comments: Slow rate regular rhythm - GI/Abdominal Exam GI & Abdominal Exam: Normal Bowel Sounds, Soft. absent: Diminished Bowel Sounds , Hyperactive Bowel Sounds, Hypoactive Bowel Sounds, Tenderness - Rectal Exam Rectal Exam: Deferred - Extremities Exam Extremities exam: Positive for: normal capillary refill, pedal pulses present. Negative for: calf tenderness, pedal edema, tenderness Additional comments: right-sided muscle strength deficits as noted in Neurologic assessment section - Neurological Exam Neurological exam: Alert, Oriented x3 Additional comments: residual right sided weakness on exam RUE and RLE +4/5 muscle strength compared to LUE and LLE, full ROM retained bilaterally No visual facial muscle droop/asymmetry on exam No slurred speech Pupils equal bilaterally, EOMI bilaterally without nystagmus or gaze palsy - Psychiatric Exam Psychiatric exam: Anxious, Normal Affect - Skin Skin Exam: Dry, Intact, Normal Color, Warm Results - Vital Signs Recent Vital Signs: Last Vital Signs Temp 98 F 08/01/16 21:01 Pulse 78 08/02/16 00:20 Resp 14 08/02/16 00:20 BP 165/94 H 08/02/16 01:51 Pulse Ox 96 08/02/16 00:20 - Labs Result Diagrams: 08/01/16 21:55 08/01/16 21:55 Labs: Laboratory Results - last 24 hr 08/01/16 21:55 WBC 5.1 RBC 5.16 Hgb 14.2 Hct 40.8 L MCV 79.1 L MCH 27.5 MCHC 34.8 RDW 13.0 Plt Count 197 MPV 10.6 PT 10.7 INR 0.99 APTT 25.7 Sodium 139 Potassium 4.5 Chloride 102 Carbon Dioxide 27 Anion Gap 15 BUN 14 Creatinine 1.0 Est GFR ( Amer) > 60 Est GFR (Non-Af Amer) > 60 Random Glucose 119 H Calcium 9.1 Total Bilirubin 0.8 AST 34 ALT 15 Alkaline Phosphatase 94 Lactate Dehydrogenase 552 Total Creatine Kinase 96 Troponin I 0.05 D Total Protein 8.1 Albumin 4.3 Globulin 3.9 Albumin/Globulin Ratio 1.1 Assessment & Plan - Assessment and Plan (Free Text) Assessment: This is a 61 yo M with PMH of HTN, DM type 2, and a prior stroke with right-sided weakness who represents to the ED with dizziness and elevated BP ( SBP > 200). He is being admitted to the ICU for hypertensive urgency requiring a Nitropruside drip to manage. Plan: Neuro: -Awake and alert, oriented x3 -Residual right sided weakness from prior CVA, at baseline as per patient -continue to monitor -maintain normothermia Pulm: -CTAB on exam -Satting >= 95% on room air -Maintain SaO2 > 90%, paO2 > 60 Cardio: -Bradycardic to low 50s in ED and during exam, will hold home Lopressor for now -Continue home ASA and Statin -HTN urgency due to symptomatic (dizziness) but no signs of end-organ dmg, not alleviated initially with Vasotec, improved w/ repeat Vasotec and Nitro paste -Trop in ED 0.05, indeterminate range but actually decreased from most recent trop during last admission (0.13) so not alarming -s/p cardiac cath on 07/31: 50% proximal left anterior descending artery disease and 50% distal right coronary artery disease. No stents placed -Resistant hypertension, working up for possible pheochromocytoma, urine drug screen ordered to r/o 06/15 substance abuse GI: -Consistent Carb heart-healthy diet -Protonix for GI ppx Renal: -24 hour urine collection for urinary metanephrines ordered -Strict I's and O's -Cr 1.0, at baseline -avoid nephrotoxic drugs as feasible -monitor and replete electrolytes as needed -maintain euvolemia and euglycemia -Nephro consulted, appreciate any recs -When BP stable, will obtain CT abd/pelvis without contrast to assess for possible renal mass Endo: -Hx DM2, holding home oral anti-hyperglycemics in favor of ISS -Accuchecks ACHS -Maintain euglycemia Heme: -WBCs 5.1, Hgb 14.2 -continue to monitor -SCDs for DVT ppx, avoid AC given bleeding risk in setting of chronically elevated BP and hx stroke Dispo: Admitted to ICU for close monitoring and control of HTN urgency, on Nitroprusside drip pending stablization of BP and conversion to adequate PO regimen FEN: Consistent-Carb Heart-Healthy diet Access: Peripheral IV Consults: Nephro Ppx: Protonix for GI, SCDs for DVT (avoid AC at this time due to bleeding risk) Patient seen, reviewed, and discussed with attending, Dr. Estrada. - Date & Time Date: 08/02/16 Time: 03:40 Decision To Admit - Pt Status Changed To: Hospital Disposition Of: Inpatient Admission - Admit Certification Admit to Inpatient:: After my assessment, the patient will require hospitalization for at least two midnights. This is because of the severity of symptoms shown, intensity of services needed, and/or the medical risk in this patient being treated as an outpatient. - . Bed Request Type: Critical Care <Sean,Asael Q - Last Filed: 08/02/16 06:39> Results - Vital Signs Recent Vital Signs: Last Vital Signs Temp 98 F 08/01/16 21:01 Pulse 55 L 08/02/16 04:35 Resp 18 08/02/16 04:35 BP 153/83 H 08/02/16 04:35 Pulse Ox 96 08/02/16 04:35 - Labs Result Diagrams: 08/01/16 21:55 08/01/16 21:55 Labs: Laboratory Results - last 24 hr 08/02/16 04:10 Urine Color Yellow Urine Appearance Clear Urine pH 7.5 Ur Specific Hensley 1.010 Urine Protein Negative Urine Glucose (UA) Negative Urine Ketones Negative Urine Blood Negative Urine Nitrate Negative Urine Bilirubin Negative Urine Urobilinogen 0.2 Ur Leukocyte Esterase Negative Urine Opiates Screen Negative Urine Methadone Screen Negative Ur Barbiturates Screen Negative Ur Phencyclidine Scrn Negative Ur Amphetamines Screen Negative U Benzodiazepines Scrn Negative U Oth Cocaine Metabols Negative U Cannabinoids Screen Negative Attending/Attestation - Attestation I have personally seen and examined this patient.: Yes I have fully participated in the care of the patient.: Yes I have reviewed all pertinent clinical information: Yes Notes (Text): 08/02/16 06:36 I agree with the above note and exam by Dr. Harrison with the addition/exception of the followin61 y/o male with a PMHx Htn, DM who was recently admitted a few days ago for dizziness as a result of hypertensive urgency. Patient was being worked up for a possible pheochromocytoma given that his normally well controlled blood pressure has now suddenly been resistant to control despite multiple medications over the past few months. Patient was discharged home yesterday and within an hour of being discharged and driving home, he experienced a similar dizziness which caused him to come to the ED on his last visit. He was not able to resume home po meds or obtain new meds from the pharmacy due to the acuity of his condition. He was placed on an iv nitroprusside drip which controlled his blood pressure appropriately. On his last visit some labs were sent to evaluate for pheo; we will start a 24hour urine collection for VMA's and obtain a CT of his abd/pelvis to evaluate for any possible adrenal masses once his sbp is stabilized.
[2016-08-02 04:37] LABS: PH,URINE 7.5 (4.7-8.0); URINE BILIRUBIN NEGATIVE (NEGATIVE); URINE BLOOD NEGATIVE (NEGATIVE); URINE GLUCOSE (UA) NEGATIVE (NEGATIVE); URINE KETONE NEGATIVE (NEGATIVE); URINE LEUKOCYTE ESTERASE NEGATIVE Leu/uL (NEGATIVE); URINE PROTEIN NEGATIVE mg/dL (<30 mg/dL); URINE UROBILINOGEN 0.2 E.U./dL (<1 E.U./dL)
[2016-08-02 04:40] LABS: URINE APPEARANCE CLEAR (CLEAR); URINE COLOR YELLOW (YELLOW)
[2016-08-02 06:51] VITALS: BMI 22.6
[2016-08-02] MEDS: Insulin Lispro (humaLOG) LOW Coverage SC SCH ×4 (07:30→22:15)
--- NOTE | 2016-08-02 07:35 | RAD ---
HISTORY: dizzy/hypertensive COMPARISON: Comparison made with prior chest radiograph 07/29/2016. FINDINGS: LUNGS: No active pulmonary disease. PLEURA: No significant pleural effusion identified, no pneumothorax apparent. CARDIOVASCULAR: Mild cardiomegaly with left ventricular configuration. OSSEOUS STRUCTURES: Re- demonstrated is apparent partial fusion changes of the right clavicle and coracoid process. Degenerative changes right shoulder girdle. . VISUALIZED UPPER ABDOMEN: Normal. OTHER FINDINGS: The extent note made of elliptical shaped well-circumscribed radiopaque density overlying the left base of the neck which could represent skin mole IMPRESSION: No acute cardiopulmonary disease.
[2016-08-02] MEDS: Pantoprazole 40 mg EC Tab PO SCH ×2 (09:43→16:36)
[2016-08-02 11:24] LABS: FREE T4 0.98 ng/dL (0.78-2.19)
[2016-08-02 11:38] LABS: THYROID STIMULATING HORMONE 5.11 mIU/mL (0.46-4.68)
[2016-08-02] MEDS ORDERED: Nicardipine 20 MG/200 ML 200 ML IV PRN (12:22)
--- NOTE | 2016-08-02 13:13 | CT ---
PROCEDURE: CT Abdomen and pelvis dated 08/02/2016. HISTORY: resistant HTN, assess for adrenal mass COMPARISON: Comparison made with prior CTA chest 07/30/2016 which imaged the upper abdomen. The TECHNIQUE: Contiguous axial images of the abdomen and pelvis performed in standard fashion without oral or intravenous contrast material. . Coronal and Sagittal reformats generated. Radiation dose: Total exam DLP = 257.59 mGy-cm. FINDINGS: LOWER THORAX: No focal consolidation however there does appear to be some minor linear atelectasis and or scarring changes in both lung bases left greater than right. No basilar pneumothorax. Heart size is within range of normal. No pericardial effusion. LIVER: The liver exhibits normal size measuring approximately 15.1 cm in CC dimension. No obvious hepatic mass, collection or calcification. . GALLBLADDER AND BILE DUCTS: The gallbladder is physiologically distended. No evidence of intraluminal gallbladder calculi. PANCREAS: Visualized portions of the pancreas appear grossly unremarkable. The pancreatic the duct is barely visible lobe does not appear significantly dilated. SPLEEN: Spleen exhibits normal size and attenuation pattern. No evidence of splenic mass collection or calcification. ADRENALS: The slightly prominent appearing adrenal glands left slightly greater than right of. Findings suggest underlying adrenal hyperplasia. Clinical correlation recommended. Underlying. . KIDNEYS AND URETERS: Kidneys exhibit relatively symmetric size. . There is a small approximately 3.2 mm calculus lower pole right kidney. Prominent renal right-sided extrarenal pelvis of and to a less degree left renal pelvis and proximal ureter however the distal ureters exhibit normal caliber. . BLADDER: Urinary bladder is incompletely distended which presumably in part accounts for thick-walled appearance. Muscular hypertrophy may contribute. Other intrinsic of wall abnormality not excluded. . There is slight elevation of the floor of the urinary bladder by enlarged prostate gland ; rule out mild bladder outlet obstruction. REPRODUCTIVE: Prostate gland appears enlarged measuring approximately 5.4 cm in transverse dimension. Prostate gland and does encroach into the floor of which is somewhat elevated as a result as well. Findings likely due to BPH however correlation with PSA suggested. APPENDIX: Normal-appearing appendix. BOWEL: Evaluation of the bowel is limited due to the lack of oral contrast. Stomach is nondistended which presumably accounts for thick-walled appearance. Gastritis or other intrinsic/invasive wall lesion not excluded. Visualized loops of small bowel exhibit relatively normal contour and caliber. No evidence of acute mechanical small bowel obstruction. Stool and air seen throughout the colon. PERITONEUM: Unremarkable. No fluid collection. No free air. Tiny fat containing umbilical hernia. LYMPH NODES: Unremarkable. No enlarged lymph nodes. VASCULATURE: Unremarkable. No aortic aneurysm. BONES: Chronic at superior endplate deformity of the T12 segment. The remaining vertebral bodies otherwise exhibit relatively normal stature. Straightening of the normal lumbar lordosis. Small central and bilateral (larger on the right than left disc herniation L4-L5 level which does result in mild compression of the ventral surface of the thecal sac more so on the right side. Disc extends into the proximal inferior margin of the right exit foramen as well. OTHER FINDINGS: None. IMPRESSION: Slightly enlarged appearing adrenal glands consistent with underlying mild adrenal hyperplasia. . Enlarged prostate gland likely due to BPH however correlation with PSA suggested to exclude underlying prostatic carcinoma. Prostate gland encroaches into the floor of the urinary bladder. Urinary bladder wall is thickened likely in part due to underdistention and muscular hypertrophy ; rule out bladder outlet obstruction. Other intrinsic/invasive wall lesion not excluded. Small nonobstructing calculus lower pole right kidney. Wall thickening of the stomach likely due to incomplete distention however gastritis or other intrinsic/invasive wall lesion also not excluded.
--- NOTE | 2016-08-02 14:20 | CP.CCUPN ---
<Mel Campos - Last Filed: 08/02/16 14:23> CCU Subjective - Physician Review Events Since Last Encounter (Free Text): 08/02/16 14:00 Patient seen and examined bedside. BP elevated this AM up to 211/97 overnight. Patient only admits to a mild headache. Denies dizziness, visual disturbance, CP , SOB, syncope, urinary difficulty, edema, n/v, abd pain, f/c. Critical Care Time Spent (in minutes): 40 CCU Objective - Vital Signs / Intake & Output Vital Signs (Last 4 hours): Vital Signs Temp Pulse Resp BP Pulse Ox 08/02/16 13:58 90 13 99 08/02/16 13:27 98.7 F 08/02/16 13:15 83 18 186/87 H 98 08/02/16 11:22 55 L 223/80 H Intake and Output (Last 8hrs): Intake & Output 08/01/16 08/02/16 08/02/16 22:59 06:59 14:59 Weight 144 lb 9.6 oz - Physical Exam Head: Positive for: Atraumatic, Normocephalic Pupils: Positive for: PERRL Extroacular Muscles: Positive for: EOMI Conjunctiva: Positive for: Normal Mouth: Positive for: Moist Mucous Membranes Neck: Positive for: Normal Range of Motion Respiratory/Chest: Positive for: Clear to Auscultation, Good Air Exchange. Negative for: Respiratory Distress, Accessory Muscle Use Cardiovascular: Positive for: Regular Rate and Rhythm, Normal S1, S2. Negative for: Murmurs Abdomen: Positive for: Normal Bowel Sounds. Negative for: Tenderness, Distention, Peritoneal Signs Back: Positive for: Normal Inspection Upper Extremity: Positive for: Normal Inspection. Negative for: Cyanosis, Edema Lower Extremity: Positive for: Normal Inspection. Negative for: Edema Neurological: Positive for: GCS=15, CN II-XII Intact, Speech Normal Skin: Positive for: Warm, Dry, Normal Color. Negative for: Rashes Psychiatric: Positive for: Alert, Oriented x 3, Normal Insight, Normal Concentration - Medications Active Medications: Active Medications Generic Name Dose Route Start Last Admin Trade Name Freq PRN Reason Stop Dose Admin Acetaminophen 650 mg 08/02/16 03:40 08/02/16 04:02 Tylenol 325mg Tab PO 650 mg Q6H PRN Administration Headache Aspirin 81 mg 08/02/16 10:00 08/02/16 09:43 Ecotrin PO 81 mg DAILY CHEY Administration Atorvastatin Calcium 10 mg 08/02/16 22:00 Lipitor PO HS [facility] Clonidine HCl 0.2 mg 08/02/16 11:04 Catapres PO Q8 CHEY Hydrochlorothiazide 25 mg 08/02/16 12:30 08/02/16 12:46 Hydrodiuril PO 25 mg DAILY CHEY Administration Nicardipine HCl 200 mls @ 50 mls/hr 08/02/16 12:22 08/02/16 12:30 Cardene Iv Premix IV 50 mls/hr .Q4H PRN Administration TITRATE PER MD ORDER Protocol 5 MG/HR Insulin Human Lispro 0 units 08/02/16 07:30 08/02/16 11:42 Humalog Low SC 1 units ACHS CHEY Administration Protocol Lisinopril 40 mg 08/02/16 10:15 08/02/16 10:13 Zestril PO 40 mg DAILY CHEY Administration Pantoprazole Sodium 40 mg 08/02/16 07:30 08/02/16 09:43 Protonix Ec Tab PO 40 mg 0730,1630 CHEY Administration Spironolactone 25 mg 08/02/16 10:15 08/02/16 10:13 Aldactone PO 25 mg BID CHEY Administration - Patient Studies Lab Studies: Lab Studies 08/02/16 08/02/16 08/02/16 Range/Units 12:27 10:40 04:10 Troponin I 0.02 D ng/mL Free T4 0.98 (0.78-2.19) ng/dL TSH 3rd Generation 5.11 H (0.46-4.68) mIU/mL Urine Color Yellow (YELLOW) Urine Appearance Clear (CLEAR) Urine pH 7.5 (4.7-8.0) Ur Specific [place] 1.010 (1.005-1.035) Urine Protein Negative (<30 mg/dL) mg/dL Urine Glucose (UA) Negative (NEGATIVE) mg/dL Urine Ketones Negative (NEGATIVE) mg/dL Urine Blood Negative (NEGATIVE) Urine Nitrate Negative (NEGATIVE) Urine Bilirubin Negative (NEGATIVE) Urine Urobilinogen 0.2 (<1 E.U./dL) E.U./dL Ur Leukocyte Esterase Negative (NEGATIVE) Rodrigo/uL Urine Opiates Screen Negative (NEGATIVE) Urine Methadone Screen Negative (NEGATIVE) Ur Barbiturates Screen Negative (NEGATIVE) Ur Phencyclidine Scrn Negative (NEGATIVE) Ur Amphetamines Screen Negative (NEGATIVE) U Benzodiazepines Scrn Negative (NEGATIVE) U Oth Cocaine Metabols Negative (NEGATIVE) U Cannabinoids Screen Negative (NEGATIVE) Laboratory Results - last 24 hr 08/02/16 08/02/16 08/02/16 04:10 10:40 12:27 Troponin I 0.02 D Free T4 0.98 TSH 3rd Generation 5.11 H Urine Color Yellow Urine Appearance Clear Urine pH 7.5 Ur Specific [place] 1.010 Urine Protein Negative Urine Glucose (UA) Negative Urine Ketones Negative Urine Blood Negative Urine Nitrate Negative Urine Bilirubin Negative Urine Urobilinogen 0.2 Ur Leukocyte Esterase Negative Urine Opiates Screen Negative Urine Methadone Screen Negative Ur Barbiturates Screen Negative Ur Phencyclidine Scrn Negative Ur Amphetamines Screen Negative U Benzodiazepines Scrn Negative U Oth Cocaine Metabols Negative U Cannabinoids Screen Negative EKG/Cardiology Studies: Cardiology / EKG Studies 08/02/16 HOLTER MONITOR Routine Comment: Reason For Exam: dizzyness PERFORMING PHYSICIAN/PROVIDER:: Souleymane Carrera Fingerstick Blood Sugar Results: 199 Review of Systems - Constitutional Constitutional: absent: Fever - EENT Eyes: absent: Blurred Vision, Change in Vision, Diplopia Ears: absent: Dizziness - Cardiovascular Cardiovascular: absent: Chest Pain, Dyspnea, Dyspnea on Exertion, Edema, Palpitations, Pedal Edema, Syncope - Respiratory Respiratory: absent: Cough, Dyspnea, Pain on Inspiration - Gastrointestinal Gastrointestinal: absent: Abdominal Pain, Diarrhea, Nausea, Vomiting - Genitourinary Genitourinary: absent: Dysuria, Flank Pain - Musculoskeletal Musculoskeletal: absent: Numbness - Integumentary Integumentary: absent: New Lesions, Rash - Neurological Neurological: Headaches (mild ). absent: Convulsions, Disequilibrium, Dizziness (resolved), Focal Weakness, Loss of Vision, Syncope - Psychiatric Psychiatric: absent: Confusion, Memory Loss Critical Care Progress Note - Ventilator Checklist PUD Prophalyxis: Yes DVT Prophylaxis: Yes - Prophylaxis GI Prophylaxis GI: PPI - Prophylaxis DVT Prophylaxis DVT: SCDs - Nutrition Nutrition: Nutrition Category Date Time Status Heart Healthy Diet [DIET] Diets 08/02/16 Breakfast Ordered Assessment/Plan - Assessment and Plan (Free Text) Assessment: 61 yo M w h/o NIDDM2, HTN, CVA w residual R sided weakness admitted to ICU with hypertensive urgency. Plan: Neuro: AAOx3, NAD CV: HTN currently controlled. Last BP 138/79. Pheo workup pending. Labwork significant for subclinical hyperthyroidism. Endocrinology recs appreciated. Continue Lisinopril, Spironolactone, HCTZ, Clonidine. Continue ASA and Lipitor Pulm: No acute issues. Comfortable on room air. Maintain spo2>90 GI: GI ppx. DM diet Renal: No acute issues. Endo: Workup to pheochromocytoma pending. CT A/P without contrast shows slightly enlarged adrenal glands. Endocrinology consult pending. Possible subclinical hyperthyroidism. Endocrinology consult pending ID: No acute issues. Afebrile, no leukocytosis Heme: No acute issues. DVT/GI ppx: Protonix, DM diet, SCDs, PT Dispo: Transfer to telemetry - Date & Time Date: 08/02/16 Time: 14:22 <Behzad Wagner - Last Filed: 08/02/16 17:18> CCU Objective - Vital Signs / Intake & Output Vital Signs (Last 4 hours): Vital Signs Temp Pulse Resp BP Pulse Ox 08/02/16 16:49 98.6 F 08/02/16 16:34 69 20 197/103 H 98 08/02/16 15:50 62 19 187/93 H 98 08/02/16 14:53 138/79 08/02/16 14:20 60 22 138/79 98 08/02/16 13:58 90 13 99 08/02/16 13:27 98.7 F Intake and Output (Last 8hrs): Intake & Output 08/02/16 08/02/16 08/02/16 06:59 14:59 22:59 Weight 144 lb 9.6 oz - Medications Active Medications: Active Medications Generic Name Dose Route Start Last Admin Trade Name Freq PRN Reason Stop Dose Admin Acetaminophen 650 mg 08/02/16 03:40 08/02/16 04:02 Tylenol 325mg Tab PO 650 mg Q6H PRN Administration Headache Aspirin 81 mg 08/02/16 10:00 08/02/16 09:43 Ecotrin PO 81 mg DAILY CHEY Administration Atorvastatin Calcium 10 mg 08/02/16 22:00 Lipitor PO HS CHEY Clonidine HCl 0.2 mg 08/02/16 11:04 08/02/16 15:29 Catapres PO Not Given Q8 CHEY Furosemide 20 mg 08/02/16 15:00 08/02/16 14:53 Lasix IVP 20 mg DAILY CHEY Administration Hydrochlorothiazide 25 mg 08/02/16 12:30 08/02/16 12:46 Hydrodiuril PO 25 mg DAILY CHEY Administration Insulin Human Lispro 0 units 08/02/16 07:30 08/02/16 16:13 Humalog Low SC 2 units ACHS CHEY Administration Protocol Levothyroxine Sodium 50 mcg 08/03/16 07:30 Synthroid PO ACB CHEY Lisinopril 40 mg 08/02/16 10:15 08/02/16 10:13 Zestril PO 40 mg DAILY CHEY Administration Pantoprazole Sodium 40 mg 08/02/16 07:30 08/02/16 16:36 Protonix Ec Tab PO 40 mg 0730,1630 CHEY Administration Spironolactone 25 mg 08/02/16 10:15 08/02/16 16:37 Aldactone PO 25 mg BID CHEY Administration - Patient Studies Lab Studies: Lab Studies 08/02/16 08/02/16 08/02/16 Range/Units 15:50 12:27 11:41 POC Glucose (mg/dL) 204 H 199 H (65-110) mg/dL Troponin I 0.02 D ng/mL Free T4 (0.78-2.19) ng/dL TSH 3rd Generation (0.46-4.68) mIU/mL Urine Color (YELLOW) Urine Appearance (CLEAR) Urine pH (4.7-8.0) Ur Specific [place] (1.005-1.035) Urine Protein (<30 mg/dL) mg/dL Urine Glucose (UA) (NEGATIVE) mg/dL Urine Ketones (NEGATIVE) mg/dL Urine Blood (NEGATIVE) Urine Nitrate (NEGATIVE) Urine Bilirubin (NEGATIVE) Urine Urobilinogen (<1 E.U./dL) E.U./dL Ur Leukocyte Esterase (NEGATIVE) Rodrigo/uL Urine Opiates Screen (NEGATIVE) Urine Methadone Screen (NEGATIVE) Ur Barbiturates Screen (NEGATIVE) Ur Phencyclidine Scrn (NEGATIVE) Ur Amphetamines Screen (NEGATIVE) U Benzodiazepines Scrn (NEGATIVE) U Oth Cocaine Metabols (NEGATIVE) U Cannabinoids Screen (NEGATIVE) 03/08/02/16 08/02/16 Range/Units 10:40 08:10 04:10 POC Glucose (mg/dL) 150 H (65-110) mg/dL Troponin I ng/mL Free T4 0.98 (0.78-2.19) ng/dL TSH 3rd Generation 5.11 H (0.46-4.68) mIU/mL Urine Color Yellow (YELLOW) Urine Appearance Clear (CLEAR) Urine pH 7.5 (4.7-8.0) Ur Specific [place] 1.010 (1.005-1.035) Urine Protein Negative (<30 mg/dL) mg/dL Urine Glucose (UA) Negative (NEGATIVE) mg/dL Urine Ketones Negative (NEGATIVE) mg/dL Urine Blood Negative (NEGATIVE) Urine Nitrate Negative (NEGATIVE) Urine Bilirubin Negative (NEGATIVE) Urine Urobilinogen 0.2 (<1 E.U./dL) E.U./dL Ur Leukocyte Esterase Negative (NEGATIVE) Rodrigo/uL Urine Opiates Screen Negative (NEGATIVE) Urine Methadone Screen Negative (NEGATIVE) Ur Barbiturates Screen Negative (NEGATIVE) Ur Phencyclidine Scrn Negative (NEGATIVE) Ur Amphetamines Screen Negative (NEGATIVE) U Benzodiazepines Scrn Negative (NEGATIVE) U Oth Cocaine Metabols Negative (NEGATIVE) U Cannabinoids Screen Negative (NEGATIVE) Laboratory Results - last 24 hr 08/02/16 08/02/16 08/02/16 04:10 08:10 10:40 POC Glucose (mg/dL) 150 H Troponin I Free T4 0.98 TSH 3rd Generation 5.11 H Urine Color Yellow Urine Appearance Clear Urine pH 7.5 Ur Specific [place] 1.010 Urine Protein Negative Urine Glucose (UA) Negative Urine Ketones Negative Urine Blood Negative Urine Nitrate Negative Urine Bilirubin Negative Urine Urobilinogen 0.2 Ur Leukocyte Esterase Negative Urine Opiates Screen Negative Urine Methadone Screen Negative Ur Barbiturates Screen Negative Ur Phencyclidine Scrn Negative Ur Amphetamines Screen Negative U Benzodiazepines Scrn Negative U Oth Cocaine Metabols Negative U Cannabinoids Screen Negative 08/02/16 08/02/16 08/02/16 11:41 12:27 15:50 POC Glucose (mg/dL) 199 H 204 H Troponin I 0.02 D Free T4 TSH 3rd Generation Urine Color Urine Appearance Urine pH Ur Specific [place] Urine Protein Urine Glucose (UA) Urine Ketones Urine Blood Urine Nitrate Urine Bilirubin Urine Urobilinogen Ur Leukocyte Esterase Urine Opiates Screen Urine Methadone Screen Ur Barbiturates Screen Ur Phencyclidine Scrn Ur Amphetamines Screen U Benzodiazepines Scrn U Oth Cocaine Metabols U Cannabinoids Screen EKG/Cardiology Studies: Cardiology / EKG Studies 08/02/16 HOLTER MONITOR Routine Comment: Reason For Exam: dizzyness PERFORMING PHYSICIAN/PROVIDER:: Souleymane Carrera Critical Care Progress Note - Nutrition Nutrition: Nutrition Category Date Time Status Heart Healthy Diet [DIET] Diets 08/02/16 Breakfast Ordered Addendum Addendum: 08/02/16 17:18 patient was seen and examined at bedside with Dr. Campos. Please see Dr. Wagner note
--- NOTE | 2016-08-02 14:30 | CON ---
DATE: 08/02/2016 HISTORY OF PRESENT ILLNESS: This is a 61-year-old gentleman with a history of poorly controlled hypertension, diabetes type 2 and prior stroke with right- sided weakness, who was readmitted to [facility] with a chief complaint of dizziness in the setting of significantly elevated blood pressure up to 220 systolic. The patient was recently discharged from [facility] where he was admitted for the same complaints and later was diagnosed with non-ST elevated myocardial infarction where he also had cardiac catheterization that reportedly did not reveal any significant coronary artery lesions. In the Emergency Room blood pressure was found around 220/95. The patient had several boluses of the IV antihypertensive medication including Vasotec and topical meds such as Nitro paste. However, patient's blood pressure continued to be high and although the dizziness resolved, the patient was admitted to ICU for IV antihypertensive meds drip. The patient denied chest pain, shortness of breath, vomiting, no neurological deficit or syncopal episodes. PAST MEDICAL HISTORY: Hypertension, diabetes, prior CVA. SOCIAL HISTORY: The patient is a former smoker. He quit about 20 years ago. Reports social alcohol use. Denies recent drugs or IVDA. FAMILY HISTORY: Noncontributory. ALLERGIES: NKDA. REVIEW OF SYSTEMS: Revealed 12 organ system, other than mentioned in history of present illness is negative. MEDICATIONS: Clonidine, glipizide, Zocor, metoprolol, lisinopril, aspirin, Aldactone. CURRENT MEDICATIONS: Aldactone, clonidine, aspirin, hydrochlorothiazide, Lipitor, Protonix, Lisinopril, nicardipine drip . PHYSICAL EXAMINATION: VITAL SIGNS: Temperature 98.7, heart rate 55, blood pressure 223/80, respiratory rate 18, oxygen saturation 97% on room air. HEAD AND NECK: Atraumatic. LUNGS: Clear to auscultation bilaterally. HEART: Regular rate and rhythm. S1, S2 normal. ABDOMEN: Soft, nontender, nondistended. MUSCULOSKELETAL: No C/C/E. NEUROLOGIC: The patient moves all extremities spontaneously. Residual weakness in the left side (upper extremity). SKIN: Moist. PSYCHOLOGIC: The patient is alert and oriented x 3, not in respiratory or otherwise distress. CAT scan of the abdomen and pelvis done. I spoke with Dr. Zapata who said he was going to read the CAT scan of the abdomen and pelvis as soon as possible. Chest x-ray did not reveal any acute cardiopulmonary disease. Electrocardiogram showed no specific ischemic changes. ASSESSMENT AND PLAN: This is a 61-year-old gentleman who presented with what appears to be malignant hypertension (will start HCTZ, pending renal follow up)/ hypertensive urgency, who presented with some headache and dizziness, which is now resolved; however, blood pressure continued to be elevated. Extensive workup was ordered including screen for pheochromocytoma, thyroid disease. CAT scan of the abdomen and pelvis was also done and will be read soon. Meanwhile, I put patient on a Cardene drip in addition to spironolactone, RAÚL inhibiters, clonidine and diuretics. Cardiology consult and nephrology consult is pending. We will continue to target euvolemia, euglycemia, normothermia and oxygen saturation more than 90%. We will continue with deep venous thrombosis and gastrointestinal prophylaxis. No signs of end organ dysfunction Addendum: spoke with Dr. Quinones-->d/c cardene drip, cont Po meds, ok to downgrade to tele ccm time 40 min Behzad Wagner MD cc: [id number] TT: 08/02/2016 14:30:19 Confirmation # [id number] Dictation # [id number] gregoria RAMIREZ
--- NOTE | 2016-08-02 16:16 | CON ---
DATE: 08/02/2016 In CCU 129, room 1. This is a 61-year-old male with known history of type 2 diabetes and hypertension, presenting here wi th severe bouts of dizziness and lightheadedness and was evaluated to have malignant range hypertensi on and is being referred now for possible endocrine hypertension. PAST MEDICAL HISTORY: History of type 2 diabetes, previously on oral hypoglycemic therapy, history o f hypertension and dyslipidemia, history of a previous CVA with residual right-sided weakness, also r ecent history of coronary artery disease with a non-ST elevation myocardial infarction, also history of hypertensive cardiovascular disease with refractory control of the systolic blood pressure despite multiple oral hypertension drug combination. FAMILY HISTORY: Positive for hypertension and diabetes. SOCIAL HISTORY: The patient has a remote history of smoking. Otherwise, no other known substance us e and has a supportive family as noted. REVIEW OF SYSTEMS: Admits to severe bouts of dizziness and lightheadedness, worse on the day of admi ssion. Also, admits to occasional near syncopal episodes as noted. Admits to precordial chest pain with palpitations and episodic shortness of breath, especially paroxysmal nocturnal dyspnea. His ora l intake has been variable and suboptimal with nausea, dyspepsia, and vague upper abdominal pains. N o recent alterations of bowel and/or urinary patterns. PHYSICAL EXAMINATION: GENERAL: This is an average built male, in no apparent distress. VITAL SIGNS: Initial blood pressure of 220/110 at the Emergency Room and now has leveled off at 170- 180 systolic over 90 with a pulse of 100 beats per minute and regular, temperature 98, respirations 2 0. Height is 5 feet 7 inches, weight is 144 pounds. HEENT: Head normocephalic. Eyes anicteric with pink conjunctivae. Fundoscopy not possible at this time. Ears, nose and throat otherwise normal. NECK: Supple. Thyroid gland is normal size. No carotid bruits or any cervical adenopathy. CARDIOPULMONARY: Some adynamic precordium. S1, S2 is rapid and regular. LUNGS: Show scattered rhonchi. ABDOMEN: Flat, soft with positive bowel sounds. EXTREMITIES: No peripheral edema. Pulses are +2 bilaterally. LABORATORIES: The chemistry showed a BUN of 14, sodium 139, potassium 4.5, chloride 102, CO2 27, glu cose 119 and creatinine 1.0. His troponin is 0.05. The free T4 is 0.98 with a TSH of 5.11. ASSESSMENT: This is a 61-year-old male with known history of type 2 diabetes and hypertension and pr esenting here with malignant range hypertension with marked acceleration of his systolic blood pressu re and associated clinical manifestations of dizziness, lightheadedness and near syncopal episodes. His CAT scan of the abdomen and pelvis showed the presence of slight adrenal hyperplasia, left greate r than right, and the possibility of adrenal hyperplasia bilaterally has been brought into the forefr ont. However, there is no evidence of any adrenal tumor or cyst as noted, which could account for th e possibility of pheochromocytoma, which as you know, could increase insulin resistance and further i mpair glucose tolerance thereof. He also remains clinically and biochemically euthyroid, but there i s evidence of early subclinical hypothyroidism with a normal free T4 and elevated TSH value, which ca n also contribute to the refractory hypertension and fluid retention thereof. Although quite rare, b ut the possibility of endocrine hypertension has to be excluded at this time, although there is no ov ert evidence of an adrenal adenoma or cyst by CAT scan of the abdomen and pelvis and they found a pos sibility of bilateral adrenal hyperplasia, which can also contribute to refractory hypertension as no patrica thereof. However, in terms of statistics, the most common causes of refractory hypertension woul d be the so-called renovascular hypertension, most likely related to underlying renal artery stenosis . Although quite remote, there is always a possibility of the so-called idiopathic pheochromocytoma versus bilateral adrenal hyperplasia and/or a plasma aldosteronoma or Conn's syndrome, although again as mentioned, there is no evidence of any adrenal tumor as noted thereof. PLAN OF MANAGEMENT: As discussed with the staff, we will concur with the comprehensive hormonal work up as ordered to exclude the possibility of renovascular hypertension. We will obtain baseline thyro id studies again to confirm and/or negate the presence of autoimmune thyroiditis causing subclinical hypothyroidism. As mentioned above, we will do the comprehensive hormonal profile with a plasma-free metanephrines and a 24-hour urine for total and free catecholamines and metanephrines as ordered. W e will also treat him with levothyroxine at 50 mcg daily as the possibility of autoimmune thyroiditis is real and so we will start him on a low dose and confirm otherwise as indicated to optimize metabo lic control. Most people will need at least 75 mcg to 100 mcg daily as ordered. We will obtain seri al chemistries and supplement accordingly as needed. We will obtain a hemoglobin A1c to confirm his prior glycemic control and baseline thyroid function studies will be ordered. We will obtain serial chemistries and supplement accordingly as needed. We will follow. Hilaria Muhammad MD cc: [id number] TT: 08/02/2016 16:16:14 Confirmation # [id number] Dictation # [id number] en
--- NOTE | 2016-08-02 16:47 | CON ---
DATE: 08/02/2016 REASON FOR CONSULTATION: Uncontrolled hypertension. The patient is a 61-year-old male who has a history of hypertension, history of old CVA with residual right hemiparesis. He was admitted last week to [facility] [place] because of palpitation . Cardiac enzymes were borderline elevated. Left heart catheterization performed on Sunday, which r evealed 50% proximal LAD as well as 50% distal RCA. A venous Doppler of lower extremity was negative , and it was noted on the chest CT scan that the patient has what is suggested to be hyperplasia. Th e patient was discharged on Aldactone. After discharge the patient was driving his car to [facility]. He felt very dizzy in the car and about to faint. He was brought back to the hospital. The patient denies any palpitation. In the ER the blood pressure was significantly elevated and the patient was admitted to the ICU. The patient denies any retrosternal chest pain or shortness of breath, and has no groin bleeding. MEDICATIONS: Aldactone 25 mg twice a day, IV Cardene 5 mg per hour infusion, clonidine 0.2 mg q. 8 h ours, aspirin 81 mg once a day, hydrochlorothiazide 25 mg once a day, Lipitor 10 mg once a day, Lasix 40 mg once a day. REVIEW OF SYSTEMS: No palpitations, no fever or chills, no nausea or vomiting. PHYSICAL EXAMINATION: The patient is a middle-aged male who does not appear to be in acute distress. VITAL SIGNS: Blood pressure /87, heart rate 52, respiration 14, temperature 98. HENT: Normocephalic. NECK: No JVD. CHEST: Clear. HEART: S1, S2 regular. EXTREMITIES: No hematoma, no edema. LABORATORY DATA: Hemoglobin, hematocrit 14.2 and 40.8, white count and platelet count are within nor mal limits. SMA-7 was within normal limits except for glucose of 119. TSH level is 5.11, slightly e levated. Urine drug screen is negative. PT, PTT within normal limits, and EKG revealed sinus bradyc ardia at a rate of 51. ASSESSMENT: 1. Uncontrolled hypertension. 2. Rule out hyperaldosteronism. 3. History of cerebrovascular accident. RECOMMENDATIONS: Continue current Aldactone at 25 mg once a day, clonidine at 0.2 mg q. 8 hours, Lip itor at 10 mg once a day, Zestril at 20 mg once a day. Start Lasix at 20 mg intravenously once a day . Abdomen and pelvis CT scan revealed slightly enlarged-appearing adrenal glands consistent with und erlying mild adrenal hyperplasia. Enlarged prostate gland likely due to BPH, however, correlation wa s RN CLINICAL DOCUMENTATION SPECIALIST suggested. Obtain carotid Doppler, as well as a brain MRI. Souleymane Carrera MD cc: [id number] TT: 08/02/2016 16:46:44 Confirmation # [id number] Dictation # [id number] juan
--- NOTE | 2016-08-02 20:06 | CARD ---
APPROVED REPORT EKG Measurement Heart [id number] [place] [id number] <Conclusion> Sinus bradycardia Otherwise normal ECG
--- NOTE | 2016-08-03 02:35 | PN ---
DATE: 08/02/2016 SUBJECTIVE: The patient was seen in the intensive care unit earlier today. Of note, he was discharg ed from [facility] yesterday, but on the ride home, began feeling "off" with some right-s ided weakness and returned back to [facility]'s Emergency Department where he was found t o have a blood pressure of 220/95 with a heart rate of 52, breathing at 20 breaths per minute and wit h an oxygen saturation of 99%. He remains in the intensive care unit, but at present denies any ches t pain, shortness of breath, palpitations, headaches or diplopia, and there is no nausea or vomiting. He is not on any intravenous fluids, and when I saw him, he was not on any intravenous vasoactive m edications either. PHYSICAL EXAMINATION: VITAL SIGNS: Blood pressure is 171/90, but in the last 24-hour period, there has been a minimum of 1 38/79 and a maximum of 223/105. Heart rate is 65, but has ranged from the 50s to approximately 114 b eats per minute. Oral temperature is 97.8, but he has a T-max of 100.8 degrees. Respiratory rate is 15, but has ranged from 11-25 breaths per minute. Oxygen saturation is 99%, but he has ranged from 93% to 100% on 2 liters oxygen via nasal cannula. I's and O's were 600/2300. The remainder of the e xam is as follows. HEENT: The patient was normocephalic and atraumatic without any sinus tenderness. Neck was supple w ith a full range of motion. Trachea midline and freely movable. Thyroid was nontender nor enlarged. There was no jugular venous distention. Conjunctivae were neither pale nor icteric. CHEST: Lungs huang were grossly clear to auscultation. There were no rales, rhonchi or wheezing th at I could appreciate. CARDIAC: Had a regular rate and rhythm without any rubs or gallops. ABDOMEN: Soft and nontender. There was no rebound, guarding or rigidity. There was no hepatospleno megaly. EXTREMITIES: Had no dependent edema. VASCULAR: Had no bruits. SKIN: Intact. NEUROLOGIC: The patient had some right-sided weakness, which appears to be chronic. LABORATORY STUDIES: White count is 5.1, H and H 14.2/40.8 with a platelet count of 197,000. There a re 67% neutrophils, 23% lymphocytes, 9% monocytes, 1% eosinophils. Coagulation studies are within no rmal limits. Sodium is 139, potassium is 4.5, chloride is 102, bicarbonate 27, BUN/creatinine is 14/ 1.0 with a glucose of 119, calcium is 9.1, total protein/albumin is 8.1/4.3. Troponin-I is 0.05. Ur inalysis had no proteinuria nor any microscopic hematuria. Urine toxicology was negative. CT scan o f the patient's abdomen and pelvis without oral or IV contrast revealed slightly enlarged adrenal gla nds consistent with mild adrenal hyperplasia and an elevated prostate consistent with BPH and thicken ing of the bladder wall, as well as a small nonobstructing stone in the lower pole of the right kidne y. IMPRESSION AND PLAN: The patient is a 61-year-old gentleman with a history of hypertension, type 2 d iabetes mellitus that is noninsulin dependent, prior history of CVA with residual right-sided weaknes s, recently discharged from [facility] who presents with uncontrolled hypertension and ge nerally not feeling well with his baseline right-sided weakness. 1. During his last hospitalization plasma aldosterone concentration, plasma renin activity, as well as plasma total and fractionated metanephrines have been sent to rule out secondary causes of hyperte nsion and these are still pending. 2. Since these laboratory studies had been sent in the last hospitalization, at this point we do not need to repeat them, but rather wait for those to come. 3. Spironolactone is quite effective for difficult to control hypertension, and I will increase it t o 50 mg orally twice daily. Additionally, we will change hydrochlorothiazide to chlorthalidone, whic h is a more potent diuretic and more effective at decreasing blood pressure with a longer half-life 2 5 mg daily and we will start the patient on amlodipine 5 mg daily, which may take some time to work. He is also noted to be on lisinopril at present and failure to reach blood pressure goal on 3 or mor e antihypertensive agents of which one it is a diuretic would constitute resistant hypertension. If his blood pressure remains elevated, we can always add minoxidil as a standing medication. 4. I believe the patient's dizziness may also be arising from the fact that he is on clonidine as we ll, and my goal would be to continue to taper this agent off slowly. He is currently on 0.2 mg orall y every 8 hours, and once his blood pressure improves, then we will start to decrease the clonidine i n addition to the 0.2 mg 3 times a day. We will also start the patient on clonidine on a p.r.n. basi s of 0.1 mg every 4 hours as needed for systolic blood pressure greater than 160 or diastolic blood p ressure of greater than 100. 5. In the absence of any ongoing active end organ damage, he does not require any intravenous infusi ons of any antihypertensive agents. 6. There is bilateral adrenal hyperplasia noted on the CT scan of his abdomen and pelvis, and thus, we will follow up the rennin and aldosterone levels as well as metanephrines from his prior hospitali zation to rule out hyperaldosteronism and pheochromocytoma respectively. 7. The patient is currently on a heart healthy diet with moderate carbohydrate consistency, but we w ill also impose a 2 g sodium restriction as well. 8. I had a lengthy discussion with the patient and explained to him that our goal would be to gradua lly lower his blood pressure since it appears that he has been hypertensive for quite some time. Fro m my perspective, the patient can be transferred out of the intensive care unit, and since he is not experiencing any symptoms from his hypertension, we could even discharge him home or perhaps discharg e him tomorrow depending on how he does. 9. The patient was encouraged to ambulate as well. Review of systems, past medical history, social history and family history were all reviewed and ther e are no new changes. More than 35 minutes were spent in the care of this ICU patient today. Michael Rowe MD cc: [id number] TT: 08/02/2016 23:57:30 Confirmation # [id number] Dictation # [id number] mn 08/03/2016 01:34:15
[2016-08-03] MEDS ORDERED: Levothyroxine 50 MCG TAB PO SCH (07:30)
[2016-08-03] MEDS: Insulin Lispro (humaLOG) LOW Coverage SC SCH ×4 (08:04→22:00)
[2016-08-03] MEDS: Pantoprazole 40 mg EC Tab PO SCH (08:05)
[2016-08-03 08:27] LABS: ADD MANUAL DIFF? NO
[2016-08-03 08:32] LABS: BASO # 0.02 [, K/mm3] (0.0-2.0); BASO % 0.3 % (0.0-3.0); EOS # 0.1 (0.0-0.7); EOS % 1.7 % (1.5-5.0); GRAN # 3.94 (1.4-6.5); HEMATOCRIT 41.9 % (42.0-52.0); LYMPH # 1.2 (1.2-3.4); LYMPH % 20.3 % (22.0-35.0); MEAN CELL VOLUME 78.9 fL (80.0-105.0); MEAN CORPUSCULAR HEMOGLOBIN 27.7 pg (25.0-35.0); MEAN CORPUSCULAR HGB CONC 35.1 g/dl (31.0-37.0); MEAN PLATELET VOLUME 10.2 fl (7.0-11.0); MONO # 0.5 (0.1-0.6); MONO % 8.7 % (1.0-6.0); PLATELET COUNT 190 [, 10^3/uL] (120.0-450.0); RED CELL DISTRIBUTION WIDTH 12.9 % (11.5-14.5); WHITE BLOOD COUNT 5.7 [, 10^3/ul] (4.5-11.0)
[2016-08-03 09:19] LABS: ALKALINE PHOSPHATASE 94 U/L (38-133); ALT/SGPT 22 U/L (7-56); AST/SGOT 33 U/L (15-59); BILIRUBIN,TOTAL 0.8 mg/dL (0.2-1.3); BLOOD UREA NITROGEN 27 mg/dL (7-21); CALCIUM 9.5 mg/dL (8.4-10.5); CARBON DIOXIDE 27 mmol/L (21-33); CHLORIDE 99 mmol/L (98-107); GFR AFRICAN-AMERICAN > 60; GLUCOSE,RANDOM 225 mg/dL (70-110); PHOSPHOROUS 3.9 mg/dL (2.5-4.5); POTASSIUM 4.4 mmol/L (3.6-5.0); SODIUM 137 mmol/L (132-148); TOTAL PROTEIN 8.4 g/dL (5.8-8.3)
[2016-08-03 09:21] LABS: T4 9.7 ug/dL (5.5-11.0)
[2016-08-03 09:35] LABS: THYROID STIMULATING HORMONE 7.3 mIU/mL (0.46-4.68)
--- NOTE | 2016-08-03 14:02 | CP.PCM.PN ---
<Esa Hearn - Last Filed: 08/03/16 14:12> Subjective - Date & Time of Evaluation Date of Evaluation: 08/03/16 Time of Evaluation: 07:04 - Subjective Subjective: Pt seen and examined. Pt reports that he is feeling well today. Pt denies fever , chills, headache, dizziness, palpitations, shortness of breath, chest pain, nausea, and vomiting. Objective - Vital Signs/Intake and Output Vital Signs (last 24 hours): Temp Pulse Resp BP Pulse Ox 97.7 F 62 14 149/85 98 08/03/16 04:00 08/03/16 10:40 08/03/16 06:01 08/03/16 10:41 08/03/16 06:01 Intake and Output: 08/03/16 08/03/16 06:59 18:59 Intake Total 240 Output Total 280 Balance -40 - Medications Medications: Current Medications Acetaminophen (Tylenol 325mg Tab) 650 mg PO Q6H PRN PRN Reason: Headache Last Admin: 08/02/16 04:02 Dose: 650 mg Amlodipine Besylate (Norvasc) 5 mg PO DAILY [facility] Last Admin: 08/03/16 10:40 Dose: 5 mg Aspirin (Ecotrin) 81 mg PO DAILY [facility] Last Admin: 08/03/16 10:39 Dose: 81 mg Atorvastatin Calcium (Lipitor) 10 mg PO HS [facility] Last Admin: 08/02/16 21:10 Dose: 10 mg Chlorthalidone (Hygroton) 25 mg PO DAILY [facility] Last Admin: 08/03/16 10:46 Dose: 25 mg Clonidine HCl (Catapres) 0.2 mg PO Q8 [facility] Last Admin: 08/03/16 05:46 Dose: 0.2 mg Clonidine HCl (Catapres) 0.1 mg PO Q4H PRN PRN Reason: Hypertension Furosemide (Lasix) 20 mg IVP DAILY [facility] Last Admin: 08/03/16 10:41 Dose: 20 mg Glipizide (Glucotrol) 5 mg PO ACB [facility] Last Admin: 08/03/16 08:05 Dose: 5 mg Insulin Human Lispro (Humalog Low) 0 units SC ACHS [facility] PRN Reason: Protocol Last Admin: 08/03/16 12:38 Dose: 2 units Levothyroxine Sodium (Synthroid) 50 mcg PO ACB [facility] Last Admin: 08/03/16 08:05 Dose: 50 mcg Lisinopril (Zestril) 40 mg PO DAILY [facility] Last Admin: 08/03/16 10:39 Dose: 40 mg Pantoprazole Sodium (Protonix Ec Tab) 40 mg PO 0730,1630 [facility] Last Admin: 08/03/16 08:05 Dose: 40 mg Spironolactone (Aldactone) 50 mg PO BID [facility] Last Admin: 08/03/16 10:40 Dose: 50 mg - Labs Labs: 08/03/16 08:26 08/03/16 08:26 PT 10.7 Seconds (9.9-11.8) 08/01/16 21:55 INR 0.99 (0.93-1.08) 08/01/16 21:55 APTT 25.7 Seconds (23.7-30.8) 08/01/16 21:55 - Constitutional Appears: No Acute Distress - Head Exam Head Exam: ATRAUMATIC, NORMOCEPHALIC - Eye Exam Eye Exam: EOMI, PERRL - ENT Exam ENT Exam: Mucous Membranes Moist. absent: Mucous Membranes Dry - Respiratory Exam Respiratory Exam: Clear to Ausculation Bilateral. absent: Rales, Rhonchi, Wheezes - Cardiovascular Exam Cardiovascular Exam: +S1, +S2. absent: Gallop, Rubs, Murmur - GI/Abdominal Exam GI & Abdominal Exam: Soft. absent: Distended, Guarding, Tenderness - Extremities Exam Extremities Exam: Full ROM. absent: Pedal Edema - Neurological Exam Neurological Exam: Alert, Awake, Oriented x3 - Psychiatric Exam Psychiatric exam: Normal Affect, Normal Mood - Skin Skin Exam: Normal Color, Warm Assessment and Plan - Assessment and Plan (Free Text) Assessment: Hypertertensive Emergency: BP currently controlled Abd/Pelvis CT - slightly enlarged appearing adrenal hlands consistent with underlying mild hyperplasia (please see full report) Urine VMA, aldosterone, metanephrine, cathecholamines, cortisol pending Nephrology, Dr. Rowe, consulted. Help appreciated. Brain MRI pending Norvasc 5 mg po qd Lipitor 10 mg po hs Chlorthalidone 25 mg po qd Catapres 0.1 mg po q4h prn Lasix 20 mg IV qd Zestril 40 mg po qd Aldactone 50 mg po bid Hypothyroidism: TSH - 7.3 Endocrinology, Dr. Muhammad, consulted. Help appreciated. Synthroid 50 mcg acb Hypercholesterolemia: Lipitor 10 mg po qd Hx of Stroke: Aspirin 81 mg po qd Lipitor 10 mg po hs Hx of CAD: Cath done last admission, revealed 50% blockage of LAD and 50% blockage of RCA Aspirin 81 mg po qd Lipitor 10 mg po hs Diabetes Mellitus: Humalog sliding scale Glipizide 5 mg po acb Prophylactic Measures: GI:Protonix 40 mg po qd DVT:SCDs <Rangasacésar,Ajantha - Last Filed: 08/03/16 15:21> Objective - Vital Signs/Intake and Output Vital Signs (last 24 hours): Temp Pulse Resp BP Pulse Ox 98.1 F 72 29 H 143/77 97 08/03/16 12:00 08/03/16 14:46 08/03/16 14:00 08/03/16 14:46 08/03/16 14:00 Intake and Output: 08/03/16 08/03/16 06:59 18:59 Intake Total 240 Output Total 280 Balance -40 - Medications Medications: Current Medications Acetaminophen (Tylenol 325mg Tab) 650 mg PO Q6H PRN PRN Reason: Headache Last Admin: 08/02/16 04:02 Dose: 650 mg Amlodipine Besylate (Norvasc) 5 mg PO DAILY [facility] Last Admin: 08/03/16 10:40 Dose: 5 mg Aspirin (Ecotrin) 81 mg PO DAILY [facility] Last Admin: 08/03/16 10:39 Dose: 81 mg Atorvastatin Calcium (Lipitor) 10 mg PO HS [facility] Last Admin: 08/02/16 21:10 Dose: 10 mg Chlorthalidone (Hygroton) 25 mg PO DAILY [facility] Last Admin: 08/03/16 10:46 Dose: 25 mg Clonidine HCl (Catapres) 0.2 mg PO Q8 [facility] Last Admin: 08/03/16 14:46 Dose: 0.2 mg Clonidine HCl (Catapres) 0.1 mg PO Q4H PRN PRN Reason: Hypertension Furosemide (Lasix) 20 mg IVP DAILY [facility] Last Admin: 08/03/16 10:41 Dose: 20 mg Glipizide (Glucotrol) 5 mg PO ACB [facility] Last Admin: 08/03/16 08:05 Dose: 5 mg Insulin Human Lispro (Humalog Low) 0 units SC ACHS [facility] PRN Reason: Protocol Last Admin: 08/03/16 12:38 Dose: 2 units Levothyroxine Sodium (Synthroid) 50 mcg PO ACB [facility] Last Admin: 08/03/16 08:05 Dose: 50 mcg Lisinopril (Zestril) 40 mg PO DAILY [facility] Last Admin: 08/03/16 10:39 Dose: 40 mg Pantoprazole Sodium (Protonix Ec Tab) 40 mg PO 0630 [facility] Spironolactone (Aldactone) 50 mg PO BID [facility] Last Admin: 08/03/16 10:40 Dose: 50 mg - Labs Labs: 08/03/16 08:26 08/03/16 08:26 PT 10.7 Seconds (9.9-11.8) 08/01/16 21:55 INR 0.99 (0.93-1.08) 08/01/16 21:55 APTT 25.7 Seconds (23.7-30.8) 08/01/16 21:55 Assessment and Plan - Assessment and Plan (Free Text) Assessment: attending note; Patient seen and examined with resident. Patient is a 61-year-old male with a past medical history of hypertension, diabetes, CVA is admitted with uncontrolled hypertension and dizziness. Currently blood pressure is improved. Medication adjusted. Nephrology and cardiology evaluation appreciated. recent cardiac cath with no stent placement. History of CVA; CT head is negative. MRI requested.Neurology evaluation ordered. PT evaluation requested. Carotid Doppler pending. Workup for secondary hypertension in progress. Needs close outpatient follow-up with nephrology. Renal duplex pending. Enlarged prostate;PSA ordered. Needs follow-up with urology as outpatient. Endocrinology evaluation Appreciated. continue Synthroid for hypothyroidism. mild adrenal hyperplasia; continue Aldactone. diabetes; continue glipizide. physical therapy evaluation requested. Possible discharge home tomorrow if clinically stable. upon discharge patient will follow up with PMD DR. Barreto. Attending/Attestation - Attestation I have personally seen and examined this patient.: Yes I have fully participated in the care of the patient.: Yes I have reviewed all pertinent clinical information, including history, physical exam and plan: Yes
--- NOTE | 2016-08-03 14:16 | PN ---
DATE: 08/03/2016 The patient is still experiencing dizziness, no significant bradycardia documented, the lowest heart rate noted 52. PHYSICAL EXAMINATION: VITAL SIGNS: Blood pressure is 149/85, respirations 16, and temperature 97.7. HEENT: Normocephalic. NECK: No JVD. CHEST: Clear. HEART: S1, S2 regular. EXTREMITIES: No edema. LABORATORIES: Hemoglobin and hematocrit are 14.7 and 41.9, white count and platelet count are within normal limits Today's SMA-7 is within normal limits except for glucose 225 and BUN of 27. TSH level 7.3. Carotid ultrasound was performed, but the report is still pending. ASSESSMENT: 1. Recurrent dizziness. 2. Hypertension. 3. Nonocclusive coronary artery disease. 4. Hypothyroidism. 6: CT scan evidence suggestive of adrenal hyperplasia. RECOMMENDATIONS: Continue Aldactone at 50 mg once a day, clonidine 0.2 mg q. 8 hours, Lasix 20 mg in travenous once a day, chlorthalidone 25 mg once a day, Synthroid 50 mcg once a day, Norvasc at 5 mg o nce a day, Lipitor at 10 mg once a day and Zestril at 40 mg once a day. Souleymane Carrera MD cc: [id number] TT: 08/03/2016 14:15:41 Confirmation # [id number] Dictation # [id number] tn
--- NOTE | 2016-08-03 16:59 | PN ---
DATE: 08/03/2016 ICU ROOM: 129, bed 1 This is a 61-year-old male with malignant range hypertension and the possibility of endocrine related hypertension has been considered as one of the diagnostic possibilities, so at this time is being fo llowed closely for metabolic management. He also had an incidental finding of early hypothyroidism, most likely related to underlying autoimmune thyroiditis. His glycemic levels are fluctuating and he is currently on oral hypoglycemic drug therapy as noted. They have sent out a comprehensive endocri ne workup for a possible pheochromocytoma because of the underlying bilateral adrenal hyperplasia not ed on CAT scan of the pelvis as mentioned. However, usually there is a dominant adrenal tumor if we are really dealing with a pheochromocytoma, this may just be a more common possibility of bilateral a drenal hyperplasia, which would be quite responsive to spironolactone medical therapy. Repeat thyroi d study showed a T4 of 9.7 with a TSH of 7.30. The chemistry showed a BUN of 27, sodium 137, potassi um 4.4, chloride 99, CO2 27, glucose 225 and creatinine 1.3. So, at this time, we will titrate his l evothyroxine to higher dose of 75 mcg daily as ordered to start tomorrow. We will obtain serial chem istries and supplement accordingly as needed. We will also obtain serial thyroid studies to optimize his metabolic control. We will also adjust his oral hypoglycemic drug medications to optimize his m etabolic control of his diabetic condition and increase the glipizide to 5 mg b.i.d. before meals to start today as ordered. We will also continue the low-dose correction scale using Humalog insulin as given. We will titrate incrementally as indicated to optimize metabolic control. Moreover, we will continue the metformin reported as 500 mg b.i.d. as given. We will obtain serial chemistries and bills pplement accordingly as needed. We will follow. Hilaria Muhammad MD cc: [id number] TT: 08/03/2016 16:59:02 Confirmation # [id number] Dictation # [id number] juan
--- NOTE | 2016-08-03 17:18 | MRI ---
PROCEDURE: MRI BRAIN WITHOUT CONTRAST HISTORY: dizziness COMPARISON: Comparison is made to the previous study dated 09/30/2012 TECHNIQUE: Multiplanar, multisequence MR images of the brain were obtained without intravenous contrast enhancement. FINDINGS: HEMORRHAGE: No evidence of acute or subacute intracranial hemorrhage. Foci of hypointense T2 GRE signal seen at the left coronal radiata suggestive of old hemorrhagic infarct. DWI: No evidence of an acute or early subacute infarction. BRAIN PARENCHYMA: Focal encephalomalacia at the left coronal radiata is again seen suggestive of chronic small infarct. Mild atrophy and mild chronic microvascular white matter ischemic disease are again seen. Some of the periventricular foci of hyperintense T2 signal are seen perpendicular to the corpus callosum in the sagittal FLAIR images. VENTRICLES: Unremarkable. No hydrocephalus. CRANIUM: Unremarkable. ORBITS: Grossly unremarkable. PARANASAL SINUSES/MASTOIDS: No evidence of acute sinusitis. VASCULAR SYSTEM: Skull base flow voids intact. OTHER FINDINGS: None. IMPRESSION: No evidence of acute infarct acute intracranial hemorrhage mass effect or midline shift. Re- demonstration of focal encephalomalacia at the left coronal radiata demonstrates hypointense T2 GRE signal likely represent old hemorrhagic infarct. Foci of white matter abnormal signal in the periventricular regions some of which are perpendicular to the corpus callosum. Findings likely represent chronic microvascular ischemic disease. Other etiology such as the demyelination disease is not totally excluded.
[2016-08-03 17:35] LABS: CORTISOL AM 11.7 ug/dL (4.46-22.7)
--- NOTE | 2016-08-03 17:40 | US ---
PROCEDURE: Bilateral carotid artery duplex ultrasound HISTORY: Carotid stenosis PHYSICIAN(S): Syd Holland MD. TECHNIQUE: Duplex sonography and color-flow Doppler were used to evaluate the carotid bifurcations and limited segments of the vertebral arteries bilaterally. FINDINGS: There is mild to moderate smooth heterogeneous plaque noted at the carotid bifurcations bilaterally. The peak systolic velocity in the proximal right internal carotid artery is 88 cm/sec. This corresponds to a 20 to 39% proximal right ICA stenosis. Normal systolic velocities are noted in the proximal right external carotid artery. There is antegrade flow in the right vertebral artery. The peak systolic velocity in the proximal left internal carotid artery is 85 cm/sec. This corresponds to a 20 to 39% proximal left ICA stenosis. Normal systolic velocities are noted in the proximal left external carotid artery. There is antegrade flow in the left vertebral artery. IMPRESSION: 1. Bilateral 20-39% proximal ICA stenoses. 2. Antegrade flow in both vertebral arteries.
--- NOTE | 2016-08-03 21:04 | CON ---
DATE: 08/03/2016 HISTORY OF PRESENT ILLNESS: This is a 61-year-old black male with past medical history of hypertensi on, prior stroke, diabetes. The patient was recently discharged from the hospital. He came back bec ause his blood pressure was found elevated and he came back to the ER the same day and found to have a blood pressure of 220/95. The patient was given antihypertensive medication and brought it under c ontrol and was sent to the ICU for further management. This patient's blood pressure is better now. PAST MEDICAL HISTORY: Hypertension, diabetes, prior stroke. SOCIAL HISTORY: Former smoker and social drinking. ALLERGIES: No known drug allergy. MEDICATIONS: Clonidine, glipizide, Zocor, metoprolol, lisinopril, aspirin, Aldactone. PHYSICAL EXAMINATION: HEENT: Normocephalic, atraumatic. NECK: Supple. NEUROLOGIC: Awake, alert, oriented to self and place. No aphasia. Cranial nerves II through XII we re tested. Pupils reactive. The patient has residual weakness of the right side from a previous str constantine and otherwise spontaneous movement of the extremities noted. Deep tendon reflexes 1+. Both plan tars are downgoing. Sensory appears intact. Cerebellar gait deferred. IMPRESSION: A 61-year-old male with past medical history of high blood pressure and diabetes, came with hypertensive emergency and also complained of headache and dizziness. Blood pressure is under c ontrol. Feeling better. We will follow up. MRI of the head was done, did not show any new stroke. Ishmael Harper MD cc: [id number] TT: 08/03/2016 21:03:34 Confirmation # [id number] Dictation # [id number]
--- NOTE | 2016-08-03 23:38 | CP.PCM.PN ---
<Zandra Mar - Last Filed: 08/03/16 23:59> Subjective - Date & Time of Evaluation Date of Evaluation: 08/03/16 Time of Evaluation: 23:38 - Subjective Subjective: Night Pt complaned of new CP qualified as "feel like gas pain" lasted for 2 seconds. Denies dizziness, palpitation, SOB, N/V/, diaphoresis Objective - Vital Signs/Intake and Output Vital Signs (last 24 hours): Temp Pulse Resp BP Pulse Ox 97.4 F L 65 26 H 163/95 H 96 08/03/16 16:00 08/03/16 22:12 08/03/16 20:05 08/03/16 22:12 08/03/16 16:00 - Medications Medications: Current Medications Acetaminophen (Tylenol 325mg Tab) 650 mg PO Q6H PRN PRN Reason: Headache Last Admin: 08/02/16 04:02 Dose: 650 mg Amlodipine Besylate (Norvasc) 10 mg PO DAILY [facility] Aspirin (Ecotrin) 81 mg PO DAILY [facility] Last Admin: 08/03/16 10:39 Dose: 81 mg Atorvastatin Calcium (Lipitor) 10 mg PO HS [facility] Last Admin: 08/03/16 22:12 Dose: 10 mg Chlorthalidone (Hygroton) 25 mg PO DAILY [facility] Last Admin: 08/03/16 10:46 Dose: 25 mg Clonidine HCl (Catapres) 0.1 mg PO Q4H PRN PRN Reason: Hypertension Clonidine HCl (Catapres) 0.2 mg PO BID [facility] Glipizide (Glucotrol) 5 mg PO ACBD [facility] Last Admin: 08/03/16 17:05 Dose: 5 mg Insulin Human Lispro (Humalog Low) 0 units SC ACHS [facility] PRN Reason: Protocol Last Admin: 08/03/16 17:01 Dose: Not Given Levothyroxine Sodium (Synthroid) 75 mcg PO ACB [facility] Lisinopril (Zestril) 40 mg PO DAILY [facility] Last Admin: 08/03/16 10:39 Dose: 40 mg Metformin HCl (Glucophage) 500 mg PO BID [facility] Last Admin: 08/03/16 19:06 Dose: 500 mg Pantoprazole Sodium (Protonix Ec Tab) 40 mg PO 0630 [facility] Spironolactone (Aldactone) 50 mg PO BID [facility] Last Admin: 08/03/16 19:05 Dose: 50 mg - Labs Labs: 08/03/16 08:26 08/03/16 08:26 PT 10.7 Seconds (9.9-11.8) 08/01/16 21:55 INR 0.99 (0.93-1.08) 08/01/16 21:55 APTT 25.7 Seconds (23.7-30.8) 08/01/16 21:55 - Constitutional Appears: No Acute Distress - Head Exam Head Exam: ATRAUMATIC, NORMOCEPHALIC - Eye Exam Eye Exam: EOMI, Normal appearance - ENT Exam ENT Exam: Mucous Membranes Moist - Neck Exam Neck Exam: Normal Inspection. absent: Meningismus - Respiratory Exam Respiratory Exam: Clear to Ausculation Bilateral, NORMAL BREATHING PATTERN. absent: Rales, Rhonchi, Wheezes - Cardiovascular Exam Cardiovascular Exam: REGULAR RHYTHM, +S1, +S2. absent: Murmur - GI/Abdominal Exam GI & Abdominal Exam: Soft, Normal Bowel Sounds. absent: Tenderness - Neurological Exam Neurological Exam: Alert, Awake - Psychiatric Exam Psychiatric exam: Normal Affect, Normal Mood - Skin Skin Exam: Dry, Warm Assessment and Plan - Assessment and Plan (Free Text) Plan: Chest pain, cardiac vs Gi - ASA 325 - Maalox - EKG - unchanged from admission EKG. Sinus raphael 50s. Baseline hr. - CBC, CMP, Mg, Cardiac Enzyme, coags <Kiara Fuentes - Last Filed: 08/04/16 02:34> Objective - Vital Signs/Intake and Output Vital Signs (last 24 hours): Temp Pulse Resp BP Pulse Ox 97.4 F L 59 L 20 137/75 100 08/04/16 00:00 08/04/16 00:00 08/04/16 00:00 08/04/16 00:00 08/04/16 00:00 - Medications Medications: Current Medications Acetaminophen (Tylenol 325mg Tab) 650 mg PO Q6H PRN PRN Reason: Headache Last Admin: 08/02/16 04:02 Dose: 650 mg Amlodipine Besylate (Norvasc) 10 mg PO DAILY [facility] Aspirin (Ecotrin) 81 mg PO DAILY [facility] Last Admin: 08/03/16 10:39 Dose: 81 mg Atorvastatin Calcium (Lipitor) 10 mg PO HS [facility] Last Admin: 08/03/16 22:12 Dose: 10 mg Chlorthalidone (Hygroton) 25 mg PO DAILY [facility] Last Admin: 08/03/16 10:46 Dose: 25 mg Clonidine HCl (Catapres) 0.1 mg PO Q4H PRN PRN Reason: Hypertension Clonidine HCl (Catapres) 0.2 mg PO BID [facility] Glipizide (Glucotrol) 5 mg PO ACBD [facility] Last Admin: 08/03/16 17:05 Dose: 5 mg Insulin Human Lispro (Humalog Low) 0 units SC ACHS [facility] PRN Reason: Protocol Last Admin: 08/03/16 17:01 Dose: Not Given Levothyroxine Sodium (Synthroid) 75 mcg PO ACB [facility] Lisinopril (Zestril) 40 mg PO DAILY [facility] Last Admin: 08/03/16 10:39 Dose: 40 mg Metformin HCl (Glucophage) 500 mg PO BID [facility] Last Admin: 08/03/16 19:06 Dose: 500 mg Pantoprazole Sodium (Protonix Ec Tab) 40 mg PO 0630 [facility] Spironolactone (Aldactone) 50 mg PO BID [facility] Last Admin: 08/03/16 19:05 Dose: 50 mg - Labs Labs: 08/04/16 01:15 08/04/16 01:15 PT 10.6 Seconds (9.9-11.8) 08/04/16 01:15 INR 0.98 (0.93-1.08) 08/04/16 01:15 APTT 25.2 Seconds (23.7-30.8) 08/04/16 01:15 Attending/Attestation - Attestation I have personally seen and examined this patient.: No I have fully participated in the care of the patient.: No I have reviewed all pertinent clinical information, including history, physical exam and plan: Yes
--- NOTE | 2016-08-03 23:44 | PN ---
DATE: 08/03/2016 SUBJECTIVE: The patient was seen in the intensive care unit earlier today. Since then, he has been transferred to telemetry. When I saw the patient, his only complaint was occasional dizziness, but doug vital was otherwise in good spirits and felt better than he did on admission. OBJECTIVE: VITAL SIGNS: Blood pressure is now 163/95 and has markedly improved over the last 24-hour period. H eart rate is 62, oral temperature 97.4, respiratory rate is 18, oxygen saturation was 96%. I's and O 's were 800/2600. The remainder of the exam was as follows: HEENT: The patient was normocephalic and atraumatic without any sinus tenderness. There was no jugu lar venous distention. Conjunctivae were neither pale nor were they icteric. CHEST: Lung huang on my examination were grossly clear to auscultation. There were no rales, rhonc hi or wheezing. CARDIAC: Had a regular rate and rhythm without any rubs or gallops. There were no heaves and the PM I was not displaced. ABDOMEN: Soft with normoactive bowel sounds in all 4 quadrants. There were no masses, pulsatile or otherwise. There was no rebound, guarding or rigidity. EXTREMITIES: Had no dependent edema. NEUROLOGIC: The patient was nonfocal. VASCULAR: Had no bruits. SKIN: Intact. LABORATORY STUDIES: As follows, metanephrines from the prior admission were negative and not increas ed. White count is 5.7, H and H is 14.7/41.9 with a platelet count of 190,000. There were 69% neutr ophils, 20% lymphocytes, 9% monocytes. Sodium is 137, potassium 4.4, chloride 99, bicarbonate 27, BU N/creatinine is 27/1.3 with a glucose of 225. 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 1. The patient's blood pressure has improved quite nicely on his current regimen. He is on spironol actone 50 mg orally twice daily, clonidine 0.2 mg orally every 8 hours, chlorthalidone 25 mg orally d aily, amlodipine 5 mg orally daily and lisinopril 40 mg orally daily. Ultimately, his goal blood pre ssure would be less than 130/80. 2. I believe that the patient's dizziness may also be arising from his clonidine and I am not confid ent of the patient's ability to comply with medication, which he is to take every 8 hours. We will t hus decrease his clonidine from 0.2 mg orally every 8 hours to 0.2 mg orally twice daily and I will i ncrease amlodipine from 5 mg orally daily to 10 mg orally daily. 3. Plasma metanephrines are negative from last admission ruling out pheochromocytoma. We will await the plasma aldosterone concentration, as well as plasma rennin activity from last admission as well. Those are still pending. 4. Clinically, to me, the patient does not appear to have congestive heart failure. We will discont inue his furosemide. 5. MRI of the brain is appreciated, there does not appear to be any acute pathology. 6. Continue 2 g sodium diet. 7. From my perspective, the patient is cleared for discharge home with outpatient followup. Review of systems, past medical history, social history and family history were all reviewed and ther e were no new changes. Michael Rowe MD cc: [id number] TT: 08/03/2016 23:43:28 Confirmation # [id number] Dictation # [id number] britt
[2016-08-03] MEDS ORDERED: Alum-Mag Hydrox-Simethicone Susp (30 mL) PO STA (23:55)
[2016-08-04] MEDS ORDERED: Aspirin 325 mg EC Tablets PO ONE (00:01)
[2016-08-04 01:32] LABS: ADD MANUAL DIFF? NO
[2016-08-04 01:37] LABS: BASO # 0.04 [, K/mm3] (0.0-2.0); BASO % 0.7 % (0.0-3.0); EOS # 0.1 (0.0-0.7); GRAN # 3.17 (1.4-6.5); GRAN % 56.4 % (50.0-68.0); HEMATOCRIT 42.1 % (42.0-52.0); LYMPH # 1.8 (1.2-3.4); LYMPH % 31.1 % (22.0-35.0); MEAN CELL VOLUME 79.6 fL (80.0-105.0); MEAN CORPUSCULAR HEMOGLOBIN 27.8 pg (25.0-35.0); MEAN CORPUSCULAR HGB CONC 34.9 g/dl (31.0-37.0); MEAN PLATELET VOLUME 10.2 fl (7.0-11.0); MONO # 0.6 (0.1-0.6); MONO % 9.8 % (1.0-6.0); PLATELET COUNT 197 [, 10^3/uL] (120.0-450.0); RED CELL DISTRIBUTION WIDTH 12.9 % (11.5-14.5); WHITE BLOOD COUNT 5.6 [, 10^3/ul] (4.5-11.0)
[2016-08-04 01:42] LABS: ALB/GLOB RATIO 1.1 (1.1-1.8); BILIRUBIN,TOTAL 0.7 mg/dL (0.2-1.3); CALCIUM 9.5 mg/dL (8.4-10.5); POTASSIUM 4.1 mmol/L (3.6-5.0); TOTAL PROTEIN 8.5 g/dL (5.8-8.3)
[2016-08-04 01:44] LABS: INR 0.98 (0.93-1.08); PARTIAL THROMBOPLASTIN TIME 25.2 Seconds (23.7-30.8)
[2016-08-04 01:53] LABS: TROPONIN I 0.03 ng/mL
[2016-08-04 06:12] VITALS: O2SAT 99
[2016-08-04] MEDS ORDERED: Pantoprazole 40 mg EC Tab PO SCH (06:30)
[2016-08-04] MEDS ORDERED: Levothyroxine 75 MCG TAB PO SCH (07:30)
[2016-08-04 07:41] LABS: ADD MANUAL DIFF? NO
[2016-08-04 07:43] LABS: BASO # 0.02 [, K/mm3] (0.0-2.0); BASO % 0.4 % (0.0-3.0); EOS # 0.1 (0.0-0.7); EOS % 1.7 % (1.5-5.0); GRAN # 2.74 (1.4-6.5); GRAN % 58.4 % (50.0-68.0); HEMATOCRIT 40.3 % (42.0-52.0); LYMPH # 1.4 (1.2-3.4); LYMPH % 29.9 % (22.0-35.0); MEAN CELL VOLUME 79.3 fL (80.0-105.0); MEAN CORPUSCULAR HEMOGLOBIN 27.8 pg (25.0-35.0); MEAN PLATELET VOLUME 9.9 fl (7.0-11.0); MONO # 0.5 (0.1-0.6); MONO % 9.6 % (1.0-6.0); PLATELET COUNT 183 [, 10^3/uL] (120.0-450.0); RED CELL DISTRIBUTION WIDTH 12.8 % (11.5-14.5); WHITE BLOOD COUNT 4.7 [, 10^3/ul] (4.5-11.0)
[2016-08-04] MEDS: Insulin Lispro (humaLOG) LOW Coverage SC SCH ×2 (08:00→11:55)
[2016-08-04 08:41] LABS: ALKALINE PHOSPHATASE 84 U/L (38-133); ALT/SGPT 40 U/L (7-56); AST/SGOT 61 U/L (15-59); BILIRUBIN,TOTAL 0.6 mg/dL (0.2-1.3); BLOOD UREA NITROGEN 35 mg/dL (7-21); CALCIUM 9.2 mg/dL (8.4-10.5); CARBON DIOXIDE 29 mmol/L (21-33); CHLORIDE 96 mmol/L (98-107); GFR AFRICAN-AMERICAN > 60; GLUCOSE,RANDOM 194 mg/dL (70-110); MAGNESIUM 2.1 mg/dL (1.7-2.2); PHOSPHOROUS 3.6 mg/dL (2.5-4.5); POTASSIUM 4.3 mmol/L (3.6-5.0); SODIUM 135 mmol/L (132-148); TOTAL PROTEIN 7.7 g/dL (5.8-8.3)
--- NOTE | 2016-08-04 09:08 | US ---
PROCEDURE: Ultrasound urinary bladder HISTORY: r/o bladder wall thickening COMPARISON: Not available TECHNIQUE: Transabdominal FINDINGS: The distended urinary bladder CC. This is suboptimally distended. The bladder wall is grossly normal in appearance. There is no intraluminal mass. Bilateral ureteral jets are demonstrated. Postvoid, the residual volume is 46.5 cc. The prostate measures 3.0 x 3.6 x 2.7 cm, equal to 40 cc volume. The prostate is heterogeneous. There is circumscribed central low attenuation within the prostate measuring 3.0 x 3.6 x 2.7 cm. Uncertain significance. This may represent prostatitis or neoplasm. IMPRESSION: Limited examination. Mild postvoid residual. Circumscribed central low attenuation within the prostate common nonspecific. See above.
[2016-08-04 09:11] LABS: TROPONIN I 0.01 ng/mL
[2016-08-04] MEDS ORDERED: Aspirin 325 mg EC Tablets PO SCH (10:00)
--- NOTE | 2016-08-04 14:44 | CP.PCM.DIS ---
<DhirajEsa - Last Filed: 08/04/16 14:54> Provider - Provider Date of Admission: 08/02/16 02:08 Attending physician: Sean Contreras MD Time Spent in preparation of Discharge (in minutes): 37 Hospital Course - Lab Results Lab Results: Micro Results 08/02/16 05:15 Nose MRSA Culture (Admit) - Final MRSA NOT DETECTED Most Recent Lab Values WBC 4.7 10^3/ul (4.5-11.0) 08/04/16 07:15 RBC 5.08 10^6/uL (3.5-6.1) 08/04/16 07:15 Hgb 14.1 gm/dL (14.0-18.0) 08/04/16 07:15 Hct 40.3 % (42.0-52.0) L 08/04/16 07:15 MCV 79.3 fL (80.0-105.0) L 08/04/16 07:15 MCH 27.8 pg (25.0-35.0) 08/04/16 07:15 MCHC 35.0 g/dl (31.0-37.0) 08/04/16 07:15 RDW 12.8 % (11.5-14.5) 08/04/16 07:15 Plt Count 183 10^3/uL (120.0-450.0) 08/04/16 07:15 MPV 9.9 fl (7.0-11.0) 08/04/16 07:15 Gran % 58.4 % (50.0-68.0) 08/04/16 07:15 Lymph % (Auto) 29.9 % (22.0-35.0) 08/04/16 07:15 [place] % (Auto) 9.6 % (1.0-6.0) H 08/04/16 07:15 Eos % (Auto) 1.7 % (1.5-5.0) 08/04/16 07:15 Baso % (Auto) 0.4 % (0.0-3.0) 08/04/16 07:15 Gran # 2.74 (1.4-6.5) 08/04/16 07:15 Lymph # 1.4 (1.2-3.4) 08/04/16 07:15 [place] # 0.5 (0.1-0.6) 08/04/16 07:15 Eos # 0.1 (0.0-0.7) 08/04/16 07:15 Baso # 0.02 K/mm3 (0.0-2.0) 08/04/16 07:15 PT 10.6 Seconds (9.9-11.8) 08/04/16 01:15 INR 0.98 (0.93-1.08) 08/04/16 01:15 APTT 25.2 Seconds (23.7-30.8) 08/04/16 01:15 Sodium 135 mmol/L (132-148) 08/04/16 07:15 Potassium 4.3 mmol/L (3.6-5.0) 08/04/16 07:15 Chloride 96 mmol/L (98-107) L 08/04/16 07:15 Carbon Dioxide 29 mmol/L (21-33) 08/04/16 07:15 Anion Gap 14 (10-20) 08/04/16 07:15 BUN 35 mg/dL (7-21) H 08/04/16 07:15 Creatinine 1.4 mg/dL (0.5-1.4) 08/04/16 07:15 Est GFR ( Amer) > 60 08/04/16 07:15 Est GFR (Non-Af Amer) 51 08/04/16 07:15 POC Glucose (mg/dL) 271 mg/dL (65-110) H 08/04/16 11:47 Random Glucose 194 mg/dL (70-110) H 08/04/16 07:15 Hemoglobin A1c 8.9 % (4.2-6.5) H 08/03/16 08:26 Calcium 9.2 mg/dL (8.4-10.5) 08/04/16 07:15 Phosphorus 3.6 mg/dL (2.5-4.5) 08/04/16 07:15 Magnesium 2.1 mg/dL (1.7-2.2) 08/04/16 07:15 Total Bilirubin 0.6 mg/dL (0.2-1.3) 08/04/16 07:15 AST 61 U/L (15-59) H 08/04/16 07:15 ALT 40 U/L (7-56) 08/04/16 07:15 Alkaline Phosphatase 84 U/L (38-133) 08/04/16 07:15 Lactate Dehydrogenase 415 U/L (333-699) 08/04/16 07:15 Total Creatine Kinase 62 U/L (35-230) 08/04/16 07:15 Troponin I 0.01 ng/mL D 08/04/16 07:15 Total Protein 7.7 g/dL (5.8-8.3) 08/04/16 07:15 Albumin 3.9 g/dL (3.0-4.8) 08/04/16 07:15 Globulin 3.8 gm/dL 08/04/16 07:15 Albumin/Globulin Ratio 1.0 (1.1-1.8) L 08/04/16 07:15 Prostate Specific Ag 2.5 ng/mL (0.00-2.5) 08/03/16 08:45 Free T4 0.98 ng/dL (0.78-2.19) 08/02/16 10:40 Thyroxine (T4) 9.7 ug/dL (5.5-11.0) 08/03/16 08:26 TSH 3rd Generation 7.30 mIU/mL (0.46-4.68) H 08/03/16 08:26 Cortisol AM Sample 11.7 ug/dL (4.46-22.7) 08/03/16 08:26 Urine Color Yellow (YELLOW) 08/02/16 04:10 Urine Appearance Clear (CLEAR) 08/02/16 04:10 Urine pH 7.5 (4.7-8.0) 08/02/16 04:10 Ur Specific [place] 1.010 (1.005-1.035) 08/02/16 04:10 Urine Protein Negative mg/dL (<30 mg/dL) 08/02/16 04:10 Urine Glucose (UA) Negative mg/dL (NEGATIVE) 08/02/16 04:10 Urine Ketones Negative mg/dL (NEGATIVE) 08/02/16 04:10 Urine Blood Negative (NEGATIVE) 08/02/16 04:10 Urine Nitrate Negative (NEGATIVE) 08/02/16 04:10 Urine Bilirubin Negative (NEGATIVE) 08/02/16 04:10 Urine Urobilinogen 0.2 E.U./dL (<1 E.U./dL) 08/02/16 04:10 Ur Leukocyte Esterase Negative Rodrigo/uL (NEGATIVE) 08/02/16 04:10 Urine Opiates Screen Negative (NEGATIVE) 08/02/16 04:10 Urine Methadone Screen Negative (NEGATIVE) 08/02/16 04:10 Ur Barbiturates Screen Negative (NEGATIVE) 08/02/16 04:10 Ur Phencyclidine Scrn Negative (NEGATIVE) 08/02/16 04:10 Ur Amphetamines Screen Negative (NEGATIVE) 08/02/16 04:10 U Benzodiazepines Scrn Negative (NEGATIVE) 08/02/16 04:10 U Oth Cocaine Metabols Negative (NEGATIVE) 08/02/16 04:10 U Cannabinoids Screen Negative (NEGATIVE) 08/02/16 04:10 - Hospital Course Hospital Course: HPI: Pt is a 60 year old male with a PMHx of HTN, Diabetes Mellitus, and right sided stroke in 2007 who presented to the ED with complaints of dizziness and headache. Pt was found to have a systolic blood pressure greater than 200. Pt was discharged from the hospital a few hours earlier where he was treated for uncontrolled HTN. Hospital Course: Pt had an Abd/Pelvis CT, which revealed slightly enlarged appearing adrenal glands consistent with underlying mild hyperplasia (please see full report). Urine VMA, aldosterone, metanephrine, cathecholamines, cortisol were ordered. Nephrology, Dr. Rowe, was consulted for refractory hypertension. Endocrinology, Dr. Muhammad, was consulted for hypothyroidism. Cardiology, Dr. Carrera, was consulted, who recommended getting a carotid artery duplex and Brain MRI. Cardiac catherization was performed 5 days ago which revealed a 50% stenosis of the proximal LAD as well as 50% stenosis of the distal RCA. No stents were placed. Carotid artery duplex revealed 20-39% proximal ICA stenoses. Brain MRI was ordered which revealed no evidence of acute infarct, acute intracranial hemorrhage, mass effect, or midline shift. EKG showed sinus bradycardia (please see full report). Renal artery duplex ultrasound was also ordered. Pt was started on clonidine, chlorthalidone, norvasc, zestril, and aldactone for HTN. Pt started on glyburide and insulin sliding scale for diabetes. PT was started on aspirin for CAD and stroke hx. Pt was started on synthroid for hypothyroidism. Neurologist, Dr. Harper, was also consulted. Pt advised to follow up with Dr. Toledo for HTN management, and Dr. Muhammad for endocrinology follow up. Discharge Exam - Head Exam Head Exam: ATRAUMATIC, NORMOCEPHALIC - Eye Exam Eye Exam: EOMI, PERRL Pupil Exam: PERRL - ENT Exam ENT Exam: Mucous Membranes Moist. absent: Mucous Membranes Dry - Neck Exam Neck exam: Full Rom - Respiratory Exam Respiratory Exam: Clear to PA & Lateral. absent: Rales, Rhonchi, Wheezes - Cardiovascular Exam Cardiovascular Exam: +S1, +S2. absent: Gallop, Rubs, Systolic Murmur - GI/Abdominal Exam GI & Abdominal Exam: Soft. absent: Distended, Firm, Guarding, Tenderness - Extremities Exam Extremities exam: full ROM - Neurological Exam Neurological exam: Alert, Oriented x3 - Psychiatric Exam Psychiatric exam: Normal Affect, Normal Mood - Skin Skin Exam: Normal Color, Warm Discharge Plan - Discharge Medications Prescriptions: Spironolactone [Aldactone] 50 mg PO BID #60 tab cloNIDine [Catapres] 0.2 mg PO BID #60 tab Chlorthalidone [Hygroton] 25 mg PO DAILY #30 tab amLODIPine [Norvasc] 10 mg PO DAILY #30 tab Levothyroxine [Synthroid] 75 mcg PO ACB #30 tab Lisinopril [Zestril] 40 mg PO DAILY #30 tab - Follow Up Plan Condition: STABLE Disposition: HOME/ ROUTINE Patient education suggested?: Yes Instructions: Coronary Artery Disease (DC), Left Heart Catheterization (DC), Meal Planning with Diabetes Exchanges (DC), Chronic Hypertension (DC) Additional Instructions: Please call to schedule an appointment follow up with 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 Rowe, within one week. Please also call and schedule an appoint for follow up with academy director, Dr. Muhammad, within one week. Please also follow up with primary care physician as soon as possible. Please take newly prescribed medications, aldactone, catapres, chlorthalidone, norvasc, and synthroid, as prescribed. Please resume home medications, metformin , glipizide, lisinopril, aspirin, and zocor. Please return to the hospital if symptoms worsen, or new symptoms arise. Referrals: Hilaria Muhammad MD [Medical Doctor] - Michael Rowe MD [Staff Provider] - <Sean Contreras - Last Filed: 08/05/16 16:45> Provider - Provider Date of Admission: 08/02/16 02:08 Attending physician: Sean Contreras MD Time Spent in preparation of Discharge (in minutes): 35 Hospital Course - Lab Results Lab Results: Micro Results 08/02/16 05:15 Nose MRSA Culture (Admit) - Final MRSA NOT DETECTED Most Recent Lab Values WBC 4.7 10^3/ul (4.5-11.0) 08/04/16 07:15 RBC 5.08 10^6/uL (3.5-6.1) 08/04/16 07:15 Hgb 14.1 gm/dL (14.0-18.0) 08/04/16 07:15 Hct 40.3 % (42.0-52.0) L 08/04/16 07:15 MCV 79.3 fL (80.0-105.0) L 08/04/16 07:15 MCH 27.8 pg (25.0-35.0) 08/04/16 07:15 MCHC 35.0 g/dl (31.0-37.0) 08/04/16 07:15 RDW 12.8 % (11.5-14.5) 08/04/16 07:15 Plt Count 183 10^3/uL (120.0-450.0) 08/04/16 07:15 MPV 9.9 fl (7.0-11.0) 08/04/16 07:15 Gran % 58.4 % (50.0-68.0) 08/04/16 07:15 Lymph % (Auto) 29.9 % (22.0-35.0) 08/04/16 07:15 [place] % (Auto) 9.6 % (1.0-6.0) H 08/04/16 07:15 Eos % (Auto) 1.7 % (1.5-5.0) 08/04/16 07:15 Baso % (Auto) 0.4 % (0.0-3.0) 08/04/16 07:15 Gran # 2.74 (1.4-6.5) 08/04/16 07:15 Lymph # 1.4 (1.2-3.4) 08/04/16 07:15 [place] # 0.5 (0.1-0.6) 08/04/16 07:15 Eos # 0.1 (0.0-0.7) 08/04/16 07:15 Baso # 0.02 K/mm3 (0.0-2.0) 08/04/16 07:15 PT 10.6 Seconds (9.9-11.8) 08/04/16 01:15 INR 0.98 (0.93-1.08) 08/04/16 01:15 APTT 25.2 Seconds (23.7-30.8) 08/04/16 01:15 Sodium 135 mmol/L (132-148) 08/04/16 07:15 Potassium 4.3 mmol/L (3.6-5.0) 08/04/16 07:15 Chloride 96 mmol/L (98-107) L 08/04/16 07:15 Carbon Dioxide 29 mmol/L (21-33) 08/04/16 07:15 Anion Gap 14 (10-20) 08/04/16 07:15 BUN 35 mg/dL (7-21) H 08/04/16 07:15 Creatinine 1.4 mg/dL (0.5-1.4) 08/04/16 07:15 Est GFR ( Amer) > 60 08/04/16 07:15 Est GFR (Non-Af Amer) 51 08/04/16 07:15 POC Glucose (mg/dL) 271 mg/dL (65-110) H 08/04/16 11:47 Random Glucose 194 mg/dL (70-110) H 08/04/16 07:15 Hemoglobin A1c 8.9 % (4.2-6.5) H 08/03/16 08:26 Calcium 9.2 mg/dL (8.4-10.5) 08/04/16 07:15 Phosphorus 3.6 mg/dL (2.5-4.5) 08/04/16 07:15 Magnesium 2.1 mg/dL (1.7-2.2) 08/04/16 07:15 Total Bilirubin 0.6 mg/dL (0.2-1.3) 08/04/16 07:15 AST 61 U/L (15-59) H 08/04/16 07:15 ALT 40 U/L (7-56) 08/04/16 07:15 Alkaline Phosphatase 84 U/L (38-133) 08/04/16 07:15 Lactate Dehydrogenase 445 U/L (333-699) 08/04/16 15:25 Total Creatine Kinase 72 U/L (35-230) 08/04/16 15:25 Troponin I < 0.01 ng/mL 08/04/16 15:25 Total Protein 7.7 g/dL (5.8-8.3) 08/04/16 07:15 Albumin 3.9 g/dL (3.0-4.8) 08/04/16 07:15 Globulin 3.8 gm/dL 08/04/16 07:15 Albumin/Globulin Ratio 1.0 (1.1-1.8) L 08/04/16 07:15 Prostate Specific Ag 2.5 ng/mL (0.00-2.5) 08/03/16 08:45 Free T4 0.98 ng/dL (0.78-2.19) 08/02/16 10:40 Thyroxine (T4) 9.7 ug/dL (5.5-11.0) 08/03/16 08:26 TSH 3rd Generation 7.30 mIU/mL (0.46-4.68) H 08/03/16 08:26 Cortisol AM Sample 11.7 ug/dL (4.46-22.7) 08/03/16 08:26 Urine Color Yellow (YELLOW) 08/02/16 04:10 Urine Appearance Clear (CLEAR) 08/02/16 04:10 Urine pH 7.5 (4.7-8.0) 08/02/16 04:10 Ur Specific [place] 1.010 (1.005-1.035) 08/02/16 04:10 Urine Protein Negative mg/dL (<30 mg/dL) 08/02/16 04:10 Urine Glucose (UA) Negative mg/dL (NEGATIVE) 08/02/16 04:10 Urine Ketones Negative mg/dL (NEGATIVE) 08/02/16 04:10 Urine Blood Negative (NEGATIVE) 08/02/16 04:10 Urine Nitrate Negative (NEGATIVE) 08/02/16 04:10 Urine Bilirubin Negative (NEGATIVE) 08/02/16 04:10 Urine Urobilinogen 0.2 E.U./dL (<1 E.U./dL) 08/02/16 04:10 Ur Leukocyte Esterase Negative [place]/uL (NEGATIVE) 08/02/16 04:10 Urine Opiates Screen Negative (NEGATIVE) 08/02/16 04:10 Urine Methadone Screen Negative (NEGATIVE) 08/02/16 04:10 Ur Barbiturates Screen Negative (NEGATIVE) 08/02/16 04:10 Ur Phencyclidine Scrn Negative (NEGATIVE) 08/02/16 04:10 Ur Amphetamines Screen Negative (NEGATIVE) 08/02/16 04:10 U Benzodiazepines Scrn Negative (NEGATIVE) 08/02/16 04:10 U Oth Cocaine Metabols Negative (NEGATIVE) 08/02/16 04:10 U Cannabinoids Screen Negative (NEGATIVE) 08/02/16 04:10 Thyroperoxidase Ab 1 IU/mL (<9) 08/03/16 08:26 Thyroglobulin Antibody <1 IU/mL (< OR = 1) 08/03/16 08:26 - Hospital Course Hospital Course: attending note; Patient seen and examined with resident. Patient is a 61-year-old male with a past medical history of hypertension, diabetes, CVA is admitted with uncontrolled hypertension and dizziness. Currently blood pressure is improved. Medication adjusted. Nephrology and cardiology evaluation appreciated. recent cardiac cath with no stent placement. History of CVA; CT head is negative. .Neurology evaluation appreciated.. PT evaluation appreciated. MRI showed no acute infarct. Carotid Doppler showed no significant stenosis. Workup for secondary hypertension in progress. Needs close outpatient follow-up with nephrology. Enlarged prostate;PSA is normal. Endocrinology evaluation Appreciated. continue Synthroid for hypothyroidism. mild adrenal hyperplasia; continue Aldactone. diabetes; continue glipizide. Possible discharge home today. upon discharge patient will follow up with PMD DR. Barreto. diagnosis; uncontrolled hypertension Diabetes Old CVA Noncompliance with follow-up
[2016-08-04 14:53] VITALS: BP 141/81; PULSE 84; RESP 19; TEMP 98.1
[2016-08-04 16:09] LABS: TROPONIN I < 0.01 ng/mL
--- NOTE | 2016-08-04 18:38 | CARD ---
APPROVED REPORT EKG Measurement Heart [id number] <Conclusion> Sinus bradycardia Rightward axis ST & T wave abnormality, consider lateral ischemia Abnormal ECG
--- NOTE | 2016-08-04 20:30 | PN ---
DATE: 08/04/2016 ROOM: 269. This is a 61-year-old male with recent malignant range hypertension with frequent syncopal and near s yncopal episodes, and is now being followed closely by neurology and also from the metabolic [facility] t for a complete workup undertaken for the possibility of "endocrine hypertension." a comprehe nsive adrenal and sympathomimetic hormonal profile has been undertaken and ordered as noted. His CAT scan of the pelvis showed the presence of bilateral adrenal hyperplasia, left greater than right, as noted. He also had an incidental finding of early hypothyroidism, most likely related to autoimmune thyroiditis and has been started on low dose levothyroxine replacement therapy. His latest thyroid study showed a T4 of 9.7 with a TSH of 7.30 and the chemistry showed a BUN of 35, sodium 135, potassi um 4.3, chloride 96, CO2 of 29, glucose 194 and creatinine 1.4. So at this time will continue the le vothyroxine given at 75 mcg daily as titrated to start today as ordered. Would recommend the same do sing upon discharge and would repeat the T4 and TSH in 4-6 weeks and adjust his dose regimen accordin gly. Will check all the reports of the hormonal profile, which was sent as it takes 2 weeks or so for the completion of the aforementioned. Will follow. Hilaria Muhammad MD cc: [id number] TT: 08/04/2016 20:29:19 Confirmation # [id number] Dictation # [id number] dn
--- NOTE | 2016-08-06 11:22 | US ---
PROCEDURE: Bilateral renal artery duplex ultrasound. CLINICAL HISTORY: Renal artery stenosis. Uncontrolled hypertension. Evaluate for renovascular hypertension. PHYSICIAN(S): Syd Holland M.D. TECHNIQUE: Duplex sonography with color-flow Doppler was used to evaluate the visualized segments of the main renal arteries. The patient was evaluated in a fasting state. Imaging in a supine and decubitus position was performed. Limited evaluation of the arcuate waveforms and resistive indices were performed. FINDINGS: The overall quality of the study is adequate. The kidneys are normal in size, shape, and location. The right kidney measures 10.5cm in length and the left kidney measures 11.4cm in length. No solid renal masses, abnormal calcifications, or hydronephrosis is seen. The renal cortex is normal in thickness but may be slightly echogenic The main right renal artery is fairly well visualized from the aorta to the hilum. The peak systolic velocity in the right main renal artery is 110 cm/sec. This is consistent with a 0 to 49% stenosis in the main right renal artery. The arcuate waveforms are normal. The resistive index is normal. The main left renal artery is also fairly well seen from its origin to the renal hilum. The peak systolic velocity in the main left renal artery is 99 cm/sec. This corresponds to a 0 to 49% stenosis in the main left renal artery. The arcuate waveforms and resistive indices are normal. IMPRESSION: 1. The main renal arteries are fairly well visualized. 2. No sonographically significant stenosis is identified. 3. The kidneys are normal and symmetric in size. There are no solid renal masses, abnormal calcifications or hydronephrosis noted.
[2016-08-06 11:44] LABS: CALCULATED TOTAL (E/NE) 33 [, mcg/24 h] (26-121); DOPAMINE 24 HR UR 223 [, mcg/24 h] (52-480); EPINEPHRINE 24 HR UR 11 [, mcg/24 h] (2-24); NOREPINEPHRINE 24 HR UR 22 [, mcg/24 h] (15-100)
[2016-08-07 10:50] LABS: COLLECTION TIME 24 Hours
[2016-08-07 14:44] LABS: METANEPHRINES 64 pg/mL (<=57); TOTAL METANEPHRINES 104 pg/mL (<=205)
[2016-08-08 17:00] LABS: ALDOSTERONE 7 ng/dL (())
== END 2016-08-04 16:26 | disposition home or self-care (01) | DRG 281 ==
LOC: ED 20:42 → ERH 08-02 02:08 → CCU 08-02 04:54 → 2RNO 08-03 20:44
PROVIDERS: ADMIT Internal Medicine; ATTEND Internal Medicine
DX: I16.0 Hypertensive urgency (principal); I21.4 Non-ST elevation (NSTEMI) myocardial infarction; I69.351 Hemiplegia and hemiparesis following cerebral infarction affecting right dominant side; I13.10 Hypertensive heart and chronic kidney disease without heart failure, with stage 1 through stage 4 chronic kidney disease, or unspecified chronic kidney disease; N18.9 Chronic kidney disease, unspecified; E27.8 Other specified disorders of adrenal gland; I25.10 Atherosclerotic heart disease of native coronary artery without angina pectoris; E03.9 Hypothyroidism, unspecified; E11.8 Type 2 diabetes mellitus with unspecified complications; N40.0 Benign prostatic hyperplasia without lower urinary tract symptoms; E78.5 Hyperlipidemia, unspecified; E06.3 Autoimmune thyroiditis; E78.00 Pure hypercholesterolemia, unspecified; Z87.891 Personal history of nicotine dependence; Z91.19 Patient's noncompliance with other medical treatment and regimen; Z79.84 Long term (current) use of oral hypoglycemic drugs

== ENCOUNTER 2016-08-17 00:24 | Observation (INO) | payer MEDICARE, MEDICAID ==
[2016-08-17 00:40] VITALS: BMI 21.9
--- NOTE | 2016-08-17 01:07 | ED PDOC ---
Arrival/HPI - General Chief Complaint: GI Problem Time Seen by Provider: 08/17/16 00:56 Historian: Patient - History of Present Illness Narrative History of Present Illness (Text): 08/17/16 01:05 Edmar Law is a 61 year old male, whose past medical history includes hypertension, diabetes, CVA, and cardiac catheterization, who presents to the Emergency department complaining of rectal discomfort past day. Patient thought possibly he needed to defecate. Patient attempted to self-administer an enema tonight, which caused him more pain.States any attempt to touch his rectal area causes severe pain. Patient denies any fever, chills, abdominal pain, nausea, vomiting, back pain, or sandy other complaints. Time/Duration: Other (tonight) Symptom Onset: Gradual Symptom Course: Unchanged Activities at Onset: Light Context: Home Past Medical History - Provider Review Nursing Documentation Reviewed: Yes - Past History Past History: No Previous - Infectious Disease Hx of Infectious Diseases: None - Tetanus Immunization Tetanus Immunization: Unknown - Cardiac Hx Cardiac Disorders: Yes Hx Hypertension: Yes - Pulmonary Hx Respiratory Disorders: Yes (SMOKED CIGARETTES QUIT 30-40 YRS AGO) - Neurological HX Cerebrovascular Accident: Yes (RIGHT ARM CONTRACTED) - HEENT Hx HEENT Disorder: Yes Other/Comment: WEARS RX GLASSES - Renal Hx Renal Disorder: Yes Other/Comment: frequency - Endocrine/Metabolic Hx Diabetes Mellitus Type 1: Yes - Hematological/Oncological Hx Blood Disorders: No - Integumentary Hx Dermatological Disorder: No - Musculoskeletal/Rheumatological Hx Musculoskeletal Disorders: Yes (RIGHT ARM WEAK WITH CONTRACTURE) Hx Falls: No - Psychiatric Hx Psychophysiologic Disorder: Yes Hx Substance Use: No Other/Comment: BEER OCCASIONALLY - Past Surgical History Past Surgical History: No Previous - Anesthesia Hx Anesthesia: No Hx Anesthesia Reactions: No Hx Malignant Hyperthermia: No - Suicidal Assessment Feels Threatened In Home Enviroment: No Family/Social History - Physician Review Nursing Documentation Reviewed: Yes Family/Social History: No Known Family HX Smoking Status: Former Smoker Hx Alcohol Use: Yes (OCCASIONAL BEER) Hx Substance Use: No Hx Substance Use Treatment: No Allergies/Home Meds Allergies/Adverse Reactions: Allergies No Known Allergies Allergy (Verified 08/01/16 21:07) Home Medications: Home Meds Medication Instructions Recorded Confirmed Simvastatin [Zocor] 20 mg PO HS 07/29/16 08/01/16 Review of Systems - Physician Review All systems were reviewed & negative as marked: Yes - Review of Systems Constitutional: Normal. absent: Fevers Eyes: Normal ENT: Normal Respiratory: Normal. absent: SOB, Cough Cardiovascular: Normal. absent: Chest Pain Gastrointestinal: Constipation, Other (+rectal discomfort). absent: Abdominal Pain, Nausea, Vomiting Genitourinary Male: Normal. absent: Dysuria, Frequency, Hematuria, Urinary Output Changes Musculoskeletal: Normal. absent: Back Pain, Neck Pain Skin: Normal. absent: Rash Neurological: Normal. absent: Headache, Dizziness Endocrine: Normal Hemo/Lymphatic: Normal Psychiatric: Normal Physical Exam Vital Signs Reviewed: Yes Vital Signs Temp Pulse Resp BP Pulse Ox 08/17/16 05:40 78 18 129/91 H 95 08/17/16 02:40 88 18 133/77 95 08/17/16 00:40 98.1 F 90 16 125/70 98 Temperature: Afebrile Blood Pressure: Normal Pulse: Regular Respiratory Rate: Normal Appearance: Positive for: Well-Appearing, Non-Toxic, Comfortable Pain Distress: None Mental Status: Positive for: Alert and Oriented X 3 - Systems Exam Head: Present: Atraumatic, Normocephalic Pupils: Present: PERRL Extroacular Muscles: Present: EOMI Conjunctiva: Present: Normal Mouth: Present: Moist Mucous Membranes Neck: Present: Normal Range of Motion Respiratory/Chest: Present: Clear to Auscultation, Good Air Exchange. No: Respiratory Distress, Accessory Muscle Use Cardiovascular: Present: Regular Rate and Rhythm, Normal S1, S2. No: Murmurs Abdomen: Present: Normal Bowel Sounds. No: Tenderness, Distention, Peritoneal Signs Rectal: Present: Other (Unable to perform digital exam due to extreme pain relayed by patient). No: Hemorrhoids Back: Present: Normal Inspection Upper Extremity: Present: Normal Inspection. No: Cyanosis, Edema Lower Extremity: Present: Normal Inspection. No: Edema Neurological: Present: GCS=15, CN II-XII Intact, Speech Normal Skin: Present: Warm, Dry, Normal Color. No: Rashes Psychiatric: Present: Alert, Oriented x 3, Normal Insight, Normal Concentration Medical Decision Making ED Course and Treatment: 08/17/16 01:05 Impression: 61 year old male complaining of rectal discomfort. Plan: -- CT Abdomen and Pelvis with IV contrast -- Labs, lipase -- IV fluids -- Reassess and disposition Prior Visits: Notes and results from previous visits were reviewed. Progress Notes: 08/17/16 06:14 Reviewed radiology, CT Abdomen and Pelvis shows: Fecal impaction of the rectum. Non acute findings as above 08/17/16 06:41 Pt. still refusing any attempt at digital evaluation of his rectum.Insists that it is extremely painful even with any light contact. Case was d/w Yahir Grace.pt. to be admitted for further evaluation.He will inform who will see patient. residential gas heat technician Dr.Hae Burns called on consult to evaluate patient. - Lab Interpretations Lab Results: 08/17/16 03:15 08/17/16 03:15 Lab Results 08/17/16 03:15: WBC 13.4 H D, RBC 4.75, Hgb 12.9 L, Hct 37.7 L, MCV 79.4 L, MCH 27.2, MCHC 34.2, RDW 13.0, Plt Count 214, MPV 10.3, Sodium 139, Potassium 5.0, Chloride 101, Carbon Dioxide 24, Anion Gap 19, BUN 39 H, Creatinine 1.7 H, Est GFR ( Amer) 50, Est GFR (Non-Af Amer) 41, Random Glucose 161 H, Calcium 9.8, Total Bilirubin 0.6, AST 34, ALT 28, Alkaline Phosphatase 115, Total Protein 8.8 H, Albumin 4.6, Globulin 4.2, Albumin/Globulin Ratio 1.1, Lipase 80 I have reviewed the lab results: Yes - RAD Interpretation Narrative RAD Interpretations (Text): CT Abdomen and Pelvis shows: The liver, spleen, pancreas, gallbladder are grossly normal. No hydronephrosis or perinephric stranding. There are non obstructing renal calculi. The small bowel appears normal. The rectum is markedly dilated with stool measuring 7 cm in diameter with an appearance supportive of fecal impaction. A normal appendix is identified axial images 105 through 110. Again seen is prominent prostate. There are tubular hyper dense structures anterior to the right femoral vessels in the groin that are present on prior study. There was significant stranding present in the fat on prior that has essentially resolved. The patient may have had a procedure in this region. Clinical correlation is recommended. Ultrasound could be performed for further evaluation. Again seen is minimal anterior wedging of T12. Again seen is disc protrusion at L4-5. IMPRESSION: Fecal impaction of the rectum. Non acute findings as above Radiology Orders: 08/17/16 02:08 ABD & PELVIS W/O PO OR IV CONT [CT] Stat Visual Merchandise Manager: Radiologist - Medication Orders Current Medication Orders: Sodium Chloride (Sodium Chloride 0.9%) 1,000 mls @ 100 mls/hr IV .Q10H CHEY Last Admin: 08/17/16 03:47 Dose: Not Given Non-Admin Reason: Patient Refused Discontinued Medications Docusate Sodium (Colace) 100 mg PO STAT STA Stop: 08/17/16 06:40 Iohexol (Omnipaque 350 100 Ml) Confirm Administered Dose 350 mg .ROUTE .STK-MED ONE Stop: 08/17/16 03:36 - Scribe Statement The provider has reviewed the documentation as recorded by the Morales Osborn Provider Attestation: All medical record entries made by the Mark Anthonyibamanuel were at my direction and personally dictated by me. I have reviewed the chart and agree that the record accurately reflects my personal performance of the history, physical exam, medical decision making, and the department course for this patient. I have also personally directed, reviewed, and agree with the discharge instructions and disposition. Disposition/Present on Arrival - Present on Arrival Any Indicators Present on Arrival: No History of DVT/PE: No History of Uncontrolled Diabetes: No Urinary Catheter: No History of Decub. Ulcer: No History Surgical Site Infection Following: None - Disposition Have Diagnosis and Disposition been Completed?: Yes Diagnosis: Rectal pain, Fecal impaction Disposition: HOSPITALIZED Disposition Time: 06:34 Patient Plan: Observation Patient Problems: Current Active Problems Problem Status Diagnosed Fecal impaction Acute Hypertension Acute Palpitations Acute Rectal pain Acute Tachycardia Acute Condition: STABLE
[2016-08-17] MEDS: Sodium Chloride 0.9% 1,000 ML IV SCH ×2 (03:33→03:47)
[2016-08-17 03:35] LABS: HEMATOCRIT 37.7 % (42.0-52.0); MEAN CELL VOLUME 79.4 fL (80.0-105.0); MEAN CORPUSCULAR HEMOGLOBIN 27.2 pg (25.0-35.0); MEAN CORPUSCULAR HGB CONC 34.2 g/dl (31.0-37.0); MEAN PLATELET VOLUME 10.3 fl (7.0-11.0); WHITE BLOOD COUNT 13.4 10^3/ul (4.5-11.0)
[2016-08-17] MEDS ORDERED: Iohexol 350 MG/100 ML VIAL ONE (03:35)
[2016-08-17 04:03] LABS: ALB/GLOB RATIO 1.1 (1.1-1.8); BILIRUBIN,TOTAL 0.6 mg/dL (0.2-1.3); CALCIUM 9.8 mg/dL (8.4-10.5); TOTAL PROTEIN 8.8 g/dL (5.8-8.3)
--- NOTE | 2016-08-17 06:10 | CT ---
EXAM: CT Abdomen and Pelvis Without Intravenous Contrast CLINICAL HISTORY: 61 years old, male; Pain; Other: Rectal; Additional info: Rectal pain TECHNIQUE: Axial computed tomography images of the abdomen and pelvis without intravenous contrast. This CT exam was performed using one or more of the following dose reduction techniques: automated exposure control, adjustment of the mA and/or kV according to patient size, and/or use of iterative reconstruction technique. Coronal and sagittal reformatted images were created and reviewed. EXAM DATE/TIME: 08/17/2016 2:08 AM COMPARISON: CT - ABD PELVIS W/O PO OR IV CONT 08/02/2016 9:26:38 AM FINDINGS: The liver, spleen, pancreas, gallbladder are grossly normal. No hydronephrosis or perinephric stranding. There are non obstructing renal calculi. The small bowel appears normal. The rectum is markedly dilated with stool measuring 7 cm in diameter with an appearance supportive of fecal impaction. A normal appendix is identified axial images 105 through 110. Again seen is prominent prostate. There are tubular hyper dense structures anterior to the right femoral vessels in the groin that are present on prior study. There was significant stranding present in the fat on prior that has essentially resolved. The patient may have had a procedure in this region. Clinical correlation is recommended. Ultrasound could be performed for further evaluation. Again seen is minimal anterior wedging of T12. Again seen is disc protrusion at L4-5. IMPRESSION: Fecal impaction of the rectum. Non acute findings as above.
[2016-08-17] MEDS ORDERED: Sodium Chloride 0.9% 1,000 ML IV STA (07:51)
--- NOTE | 2016-08-17 07:58 | CP.PCM.HP ---
<Sandor Ch - Last Filed: 08/17/16 10:54> History of Present Illness - History of Present Illness History of Present Illness: CC: Rectal pain and Constipation 61 M with PMH of HTN, DM, HLD, and Hypothyroidism presented to [facility] with a complaint of rectal pain and constipation. Patient stated that the pain and consitpation have been present for 2 days. He stated that with was a gradual onset and has gotten progressively worse. He has experienced these symptoms once before and was treat with enemas and suppositories which relieved his symptoms. Patient reported that he was out about two days ago and felt like he had to use the restroom but decided to wait until he had gotten home to do so. Once he got home, he noticed the pain and he was unable to have a bowel movement. He rated pain 10/10 in severity at its worst. He described the pain as intermittent, sharp and intense located in his rectum/anus without radiation. Nothing has alleviated or exacerbated his symptoms specifically. He tried enemas and suppositories at home without relief. Last BM was about 3 days ago. Admitted to [facility] with flatus and defication. Denied fever/chills, cp, sob, palpitations, abd pain, n/v/d, incontinence, urinary symptoms, hematochezia, weakness, fatigue, numbness/tingling. PMD: ?Dr. Dallas Nephmeseret: Dr. Rowe PMH: Meds: Allergy: NKDA PSH: Denied Hosp: 2 weeks ago for HTN and DM FH: CAD, SC, DM Social: denied tobacco and illicit drug use, drinks ETOH socially Present on Admission - Present on Admission Any Indicators Present on Admission: No History of DVT/PE: No History of Uncontrolled Diabetes: Yes Urinary Catheter: No Decubitus Ulcer Present: No Review of Systems - Review of Systems All systems: reviewed and no additional remarkable complaints except (as per HPI ) Past Patient History - Infectious Disease Hx of Infectious Diseases: None - Tetanus Immunizations Tetanus Immunization: Unknown - Past Social History Smoking Status: Former Smoker - CARDIAC Hx Cardiac Disorders: Yes Hx Hypertension: Yes - PULMONARY Hx Respiratory Disorders: Yes (SMOKED CIGARETTES QUIT 30-40 YRS AGO) - NEUROLOGICAL HX Cerebrovascular Accident: Yes (RIGHT ARM CONTRACTED) - HEENT Hx HEENT Problems: Yes Other/Comment: WEARS RX GLASSES - RENAL Hx Chronic Kidney Disease: Yes Other/Comment: frequency - ENDOCRINE/METABOLIC Hx Diabetes Mellitus Type 1: Yes - HEMATOLOGICAL/ONCOLOGICAL Hx Blood Disorders: No - INTEGUMENTARY Hx Dermatological Problems: No - MUSCULOSKELETAL/RHEUMATOLOGICAL Hx Musculoskeletal Disorders: Yes (RIGHT ARM WEAK WITH CONTRACTURE) Hx Falls: No - PSYCHIATRIC Hx Psychophysiologic Disorder: Yes Hx Substance Use: No Other/Comment: BEER OCCASIONALLY - SURGICAL HISTORY Hx Surgeries: No - ANESTHESIA Hx Anesthesia: No Hx Anesthesia Reactions: No Hx Malignant Hyperthermia: No Meds Home Medications: Home Medication List Medication Instructions Recorded Confirmed Type Docusate [Colace] 100 mg PO TID #90 cap 08/18/16 Rx Polyethylene Glycol 3350 [Miralax] 17 gm PO TID #30 packet 08/18/16 Rx Spironolactone [Aldactone] 25 mg PO BID #60 tab 08/18/16 08/17/16 Rx cloNIDine [Catapres] 0.1 mg PO Q12 #60 tab 08/18/16 Rx Allergies/Adverse Reactions: Allergies Allergy/AdvReac Type Severity Reaction Status Date / Time No Known Allergies Allergy Verified 08/01/16 21:07 Physical Exam - Constitutional Appears: No Acute Distress - Head Exam Head Exam: ATRAUMATIC, NORMOCEPHALIC - Eye Exam Eye Exam: EOMI, Normal appearance Pupil Exam: PERRL - ENT Exam ENT Exam: Mucous Membranes Dry - Neck Exam Neck exam: Positive for: Normal Inspection - Respiratory Exam Respiratory Exam: Clear to Auscultation Bilateral, NORMAL BREATHING PATTERN - Cardiovascular Exam Cardiovascular Exam: RRR, +S1, +S2 - GI/Abdominal Exam GI & Abdominal Exam: Normal Bowel Sounds, Soft. absent: Distended, Firm, Guarding, Rebound, Tenderness - Rectal Exam Rectal Exam: Fecal Impaction - Extremities Exam Extremities exam: Positive for: normal capillary refill, pedal pulses present - Back Exam Back exam: absent: CVA tenderness (L), CVA tenderness (R) - Neurological Exam Neurological exam: Alert, CN II-XII Intact, Oriented x3 - Psychiatric Exam Psychiatric exam: Normal Affect, Normal Mood - Skin Skin Exam: Dry, Intact, Normal Color, Warm Results - Vital Signs Recent Vital Signs: Last Vital Signs Temp 98.1 F 08/17/16 00:40 Pulse 67 08/17/16 06:50 Resp 18 08/17/16 06:50 BP 115/62 04/06/17 06:50 Pulse Ox 100 08/17/16 06:50 - Labs Result Diagrams: 08/17/16 03:15 08/17/16 03:15 Assessment & Plan - Assessment and Plan (Free Text) Plan: 1. Constipation Admit to Med/surg Liquid diet CT abd/Pelvis: Fecal impaction of rectum GI consult, Dr. Dee, help appreciated Mag citrate 300 mL PO ONCE Dulcolax 10 mg RC ONCE Colace 100 mg PO TID Lactulose 30 gm PO TID Miralaz 17 gm PO TID D5 1/2 NS 150 cc/hr Toradol 15 mg IVP Q6H PRN Zofran 4 mg PO Q6H PRN 2. HTN Hold Spironolactone 50 mg PO BID Hold Chlorothiadone 25 mg PO daily Hold Lisinopril 40 mg PO daily Norvasc 10 mg PO daily Clonidine 0.1 PO BID 3. DM Hold Metformin 500 mg PO BID Insulin sliding scale - low dose Accuchecks 4. HLD Lipitor 10 mg PO HS 5. Hypothyroidism Levothyroxine 75 mcg PO ACB 6. Prophylactic Measures Lovenox 40 mg SC daily SCDs Protonix 40 mg PO daily ASA 81 mg PO daily <Sean Contreras - Last Filed: 08/18/16 15:57> Results - Vital Signs Recent Vital Signs: Last Vital Signs Temp 98.2 F 08/18/16 06:00 Pulse 52 L 08/18/16 06:00 Resp 17 08/18/16 06:00 BP 131/82 08/18/16 14:40 Pulse Ox 100 08/18/16 06:00 - Labs Result Diagrams: 08/18/16 07:00 08/18/16 07:00 Labs: Laboratory Results - last 24 hr 08/18/16 08/18/16 01:35 07:00 WBC 5.1 D RBC 4.76 Hgb 13.0 L Hct 37.8 L MCV 79.4 L MCH 27.3 MCHC 34.4 RDW 12.6 Plt Count 210 MPV 10.1 Gran % 60.5 Lymph % (Auto) 30.0 [place] % (Auto) 7.5 H Eos % (Auto) 1.2 L Baso % (Auto) 0.8 Gran # 3.06 Lymph # 1.5 [place] # 0.4 Eos # 0.1 Baso # 0.04 Sodium 139 Potassium 4.6 Chloride 103 Carbon Dioxide 27 Anion Gap 14 BUN 27 H Creatinine 1.4 Est GFR ( Amer) > 60 Est GFR (Non-Af Amer) 51 Random Glucose 138 H Calcium 9.0 Phosphorus 2.7 Magnesium 2.3 H Total Bilirubin 0.7 AST 28 ALT 30 Alkaline Phosphatase 91 Total Creatine Kinase 104 Total Protein 8.0 Albumin 4.0 Globulin 4.0 Albumin/Globulin Ratio 1.0 L Urine Color Yellow Urine Appearance Clear Urine pH 6.0 Ur Specific [place] 1.020 Urine Protein Negative Urine Glucose (UA) 100 H Urine Ketones Negative Urine Blood Negative Urine Nitrate Negative Urine Bilirubin Negative Urine Urobilinogen 0.2 Ur Leukocyte Esterase Negative Ur Random Creatinine 148 Ur Random Sodium 87 Urine Opiates Screen Negative Urine Methadone Screen Negative Ur Barbiturates Screen Negative Ur Phencyclidine Scrn Negative Ur Amphetamines Screen Negative U Benzodiazepines Scrn Negative U Oth Cocaine Metabols Negative U Cannabinoids Screen Negative Assessment & Plan - Assessment and Plan (Free Text) Assessment: atten ding note: Patient is a 61 year old male Male with PMH of HTN, DM, HLD, and Hypothyroidism presented to [facility] with a complaint of rectal pain and constipation. Patient stated that the pain and consitpation have been present for [address] abd/pelvis showed fecal impaction of rectum. started on colace, Magnesium citrate and miralax. GI evaluation requested. ARF: moslty pre renal. BP meds adjusted. Nephrology evaluation requested. upon Discharge the patient will follow up with PMD Dr. Perdomo and nephrology Dr. Lombardi. Attending/Attestation - Attestation I have personally seen and examined this patient.: Yes I have fully participated in the care of the patient.: Yes I have reviewed all pertinent clinical information: Yes
[2016-08-17] MEDS: Dextrose 5%/0.45% NS 1,000 ML IV SCH ×2 (08:44→22:03)
[2016-08-17] MEDS ORDERED: Magnesium Citrate Oral SOL (300 ml) PO ONE (09:44)
[2016-08-17] MEDS ORDERED: Enoxaparin 30 mg Syringe SC SCH (10:00)
[2016-08-17] MEDS: POLYETHYLENE GLYCOL 3350 17 GM/Dose PACKET PO SCH ×3 (10:09→17:25)
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
[2016-08-17] MEDS: Insulin Lispro (humaLOG) LOW Coverage SC SCH ×3 (11:42→21:22)
[2016-08-17] MEDS ORDERED: Non Formulary Medication (Simvastatin [Zocor] 20 MG) PO SCH (22:00)
--- NOTE | 2016-08-17 22:38 | CP.PCM.CON ---
History of Present Illness - History of Present Illness History of Present Illness: 61 yo M w/ pmh of htn, dm, non-obstructive CAD (per recent cath), CVA w/ L hemiparesis, admitted due to severe rectal pain and fecal impaction; nephrology service being consulted for acute renal failure; Patient with 2 admissions last month with hypertensive urgency/emergency ( troponin positive at one point); patient at that time was reporting recent onset of episodes of dizziness that were associated with severely uncontrolled BP; workup was done for secondary forms of htn (namely primary aldosteronism and pheochromocytoma); patient subsequently discharged on a regimen that included clonidine (which he was previously taking), lisinopril (previously on enalapril), norvasc, chlorthalidone and aldactone (newly added). Patient reports being adherent to meds and even having a f/u nephrology visit last week with meds adjusted although he hasn't yet began this new regimen. Patient denies anymore dizziness/lightheadedness, palpitations, fevers/chills, nausea/vomiting, diarrhea or increased urinary frequency; he denies taking any pain meds or taking any herbal formulations other than for his prostate (cannot recall name). Review of Systems - Constitutional Constitutional: absent: Anorexia, Chills, Fever, Weight Gain, Weight Loss - EENT Eyes: absent: Blurred Vision, Change in Vision Ears: Decreased Hearing Nose/Mouth/Throat: Epistaxis. absent: Change in Voice, Dysphagia, Sore Throat Additional comments: Decreased hearing on R; Epistaxis several weeks ago, none lately; - Cardiovascular Cardiovascular: absent: Chest Pain, Dyspnea, Leg Edema, Palpitations - Respiratory Respiratory: absent: Cough, Dyspnea - Gastrointestinal Gastrointestinal: absent: Diarrhea, Nausea, Vomiting - Genitourinary Genitourinary: Change in Urinary Stream. absent: Dysuria, Urinary Frequency Additional comments: Slow urinary stream; - Musculoskeletal Musculoskeletal: absent: Arthralgias, Back Pain - Integumentary Integumentary: absent: Pruritus, Rash - Neurological Neurological: Focal Weakness. absent: Sensory Deficit, Vertigo Additional comments: R arm and leg weakness (s/p CVA) - Psychiatric Psychiatric: absent: Anxiety, Depression - Hematologic/Lymphatic Hematologic: absent: Easy Bleeding, Easy Bruising Past Patient History - Infectious Disease Hx of Infectious Diseases: None - Tetanus Immunizations Tetanus Immunization: Unknown - Past Social History Smoking Status: Former Smoker - CARDIAC Hx Cardiac Disorders: Yes Hx Hypertension: Yes Other/Comment: non-obstructive CAD - PULMONARY Hx Respiratory Disorders: Yes (SMOKED CIGARETTES QUIT 30-40 YRS AGO) - NEUROLOGICAL HX Cerebrovascular Accident: Yes (RIGHT ARM CONTRACTED) - HEENT Hx HEENT Problems: Yes Other/Comment: WEARS RX GLASSES - RENAL Hx Chronic Kidney Disease: Yes Other/Comment: frequency - ENDOCRINE/METABOLIC Hx Diabetes Mellitus Type 1: Yes - HEMATOLOGICAL/ONCOLOGICAL Hx Blood Disorders: No - INTEGUMENTARY Hx Dermatological Problems: No - MUSCULOSKELETAL/RHEUMATOLOGICAL Hx Musculoskeletal Disorders: Yes (RIGHT ARM WEAK WITH CONTRACTURE) Hx Falls: No - PSYCHIATRIC Hx Psychophysiologic Disorder: Yes Hx Substance Use: No Other/Comment: BEER OCCASIONALLY - SURGICAL HISTORY Hx Surgeries: No - ANESTHESIA Hx Anesthesia: No Hx Anesthesia Reactions: No Hx Malignant Hyperthermia: No Meds Allergies/Adverse Reactions: Allergies Allergy/AdvReac Type Severity Reaction Status Date / Time No Known Allergies Allergy Verified 08/01/16 21:07 - Medications Medications: Current Medications Amlodipine Besylate (Norvasc) 10 mg PO DAILY [facility] Last Admin: 08/17/16 10:08 Dose: 10 mg Aspirin (Ecotrin) 81 mg PO DAILY [facility] Last Admin: 08/17/16 10:08 Dose: 81 mg Atorvastatin Calcium (Lipitor) 10 mg PO HS [facility] Last Admin: 08/17/16 21:27 Dose: 10 mg Clonidine HCl (Catapres) 0.1 mg PO Q12 [facility] Last Admin: 08/17/16 21:27 Dose: 0.1 mg Docusate Sodium (Colace) 100 mg PO TID [facility] Last Admin: 08/17/16 17:21 Dose: 100 mg Sodium Chloride (Sodium Chloride 0.9%) 1,000 mls @ 100 mls/hr IV .Q10H [facility] Stop: 08/18/16 08:44 Insulin Human Lispro (Humalog Low) 0 units SC ACHS [facility] PRN Reason: Protocol Last Admin: 08/17/16 21:22 Dose: Not Given Lactulose (Enulose) 30 gm PO TID [facility] Last Admin: 08/17/16 17:25 Dose: Not Given Levothyroxine Sodium (Synthroid) 75 mcg PO ACB [facility] Ondansetron HCl (Zofran Inj) 4 mg IVP Q6 PRN PRN Reason: Nausea/Vomiting Last Admin: 08/17/16 16:17 Dose: 4 mg Pantoprazole Sodium (Protonix Ec Tab) 40 mg PO 0630 [facility] Polyethylene Glycol (Miralax) 17 gm PO TID [facility] Last Admin: 08/17/16 17:25 Dose: Not Given Physical Exam - Constitutional Appears: Well, No Acute Distress - Head Exam Head Exam: NORMAL INSPECTION - Eye Exam Eye Exam: Normal appearance. absent: Scleral icterus - ENT Exam ENT Exam: Mucous Membranes Moist Additional comments: Mildly decreased hearing on R - Neck Exam Neck exam: Positive for: Normal Inspection. Negative for: Lymphadenopathy - Respiratory Exam Respiratory Exam: Clear to Auscultation Bilateral, NORMAL BREATHING PATTERN. absent: Rales, Rhonchi, Wheezes - Cardiovascular Exam Cardiovascular Exam: REGULAR RHYTHM, RRR, +S1, +S2. absent: JVD - GI/Abdominal Exam GI & Abdominal Exam: Hyperactive Bowel Sounds, Soft. absent: Bruit, Distended, Tenderness - Exam Exam: absent: Bladder Distension - Extremities Exam Extremities exam: Positive for: normal capillary refill, pedal pulses present. Negative for: pedal edema - Neurological Exam Neurological exam: Alert, CN II-XII Intact, Motor Sensory Deficit Additional comments: Mild L arm and L weakness; - Psychiatric Exam Psychiatric exam: Normal Affect, Normal Mood Results - Vital Signs Recent Vital Signs: Last Vital Signs Temp 98.6 F 08/17/16 16:00 Pulse 63 08/17/16 21:27 Resp 18 08/17/16 16:00 BP 141/84 08/17/16 21:27 Pulse Ox 100 08/17/16 16:00 - Labs Result Diagrams: 08/17/16 03:15 08/17/16 03:15 - Imaging and Cardiology US - abdomen Status: Image reviewed by me Additional comment: Renal US - Mild questionable echogenicity of kidneys; within acceptable range of asymmetry; Assessment & Plan (1) Acute renal failure Assessment and Plan: Likely pre-renal etiology due to diuretics and loss of renal autoregulation from being on MARCEL blockade (lisinopril); positive orthostatic changes on my exam (vitals: lying BP 186/92, HR 70; standing 154/97, HR 98); no history of any GI losses; -Agree with holding diuretics and lisinopril for now -Start NS at 100 cc/hr x 1L -check UA, UDS -check serum CK Status: Acute (2) Hypertension Assessment and Plan: Better controlled than on initial presentation last month; will continue to need close f/u as BP control can take months to achieve; workup for pheochromocytoma negative with no increase in plasma metanephrines; primary aldosteronism may still be a possibility with close to borderline high plasma wilian level and high wilian/renin ratio but needs confirmatory testing with salt loading and measuring 24 hr urine wilian levels (outpatient workup); -continue clonidine 0.1 mg q12h, norvasc 10 mg daily -continue to hold RAÚL inhibitor until renal function improves to close to baseline -continue to hold diuretics; once volume replete, restart aldactone at 25 mg q12h -can use prn doses of clonidine 0.1 mg q8h if SBP > 160 (may see some rebound htn as patient was on 0.2 mg bid) Status: Acute (3) Fecal impaction Assessment and Plan: Avoid Fleets phosphate enemas in the setting of acute renal faliure/CKD as the large phosphate load can worsen renal function; can use mineral oil enema if needed; Status: Acute (4) Diabetes Assessment and Plan: Uncontrolled; A1C 8.9 last month; was only using metformin once a day; continue to hold metformin until renal function improves in order to avoid lactic acidosis; Status: Acute (5) CAD (coronary artery disease) Assessment and Plan: Non-obstructive disease found on recent cath; continue lipitor (likely needs higher dose) and ASA; Status: Acute (6) CKD (chronic kidney disease) Assessment and Plan: Stage II-IIIA; non-proteinuric kidney disease (per last UA but should get a quantitative check) with fluctuating serum creatinine levels seen previously are suggestive of renovascular etiology; renal artery duplex showed no hemodynamically significant stenoses; however, this is a technically difficult study and in the setting of DM and known CAD, should treat with maximal medical management ie. high potency statins; -check random urine protein/creatinine Status: Acute
[2016-08-17] MEDS ORDERED: Sodium Chloride 0.9% 1,000 ML IV SCH (22:45)
[2016-08-18 02:16] LABS: URINE BILIRUBIN NEGATIVE (NEGATIVE); URINE BLOOD NEGATIVE (NEGATIVE); URINE GLUCOSE (UA) 100 mg/dL (NEGATIVE); URINE KETONE NEGATIVE (NEGATIVE); URINE LEUKOCYTE ESTERASE NEGATIVE Leu/uL (NEGATIVE); URINE PROTEIN NEGATIVE mg/dL (<30 mg/dL); URINE UROBILINOGEN 0.2 E.U./dL (<1 E.U./dL)
[2016-08-18 02:17] LABS: URINE APPEARANCE CLEAR (CLEAR); URINE COLOR YELLOW (YELLOW)
[2016-08-18] MEDS ORDERED: Pantoprazole 40 mg EC Tab PO SCH (06:30)
[2016-08-18 07:21] LABS: ADD MANUAL DIFF? NO
[2016-08-18] MEDS ORDERED: Levothyroxine 75 MCG TAB PO SCH (07:30)
[2016-08-18 07:31] LABS: ALKALINE PHOSPHATASE 91 U/L (38-133); ALT/SGPT 30 U/L (7-56); AST/SGOT 28 U/L (15-59); BILIRUBIN,TOTAL 0.7 mg/dL (0.2-1.3); BLOOD UREA NITROGEN 27 mg/dL (7-21); CARBON DIOXIDE 27 mmol/L (21-33); CHLORIDE 103 mmol/L (98-107); GFR AFRICAN-AMERICAN > 60; GLUCOSE,RANDOM 138 mg/dL (70-110); MAGNESIUM 2.3 mg/dL (1.7-2.2); PHOSPHOROUS 2.7 mg/dL (2.5-4.5); POTASSIUM 4.6 mmol/L (3.6-5.0); SODIUM 139 mmol/L (132-148)
[2016-08-18 07:32] LABS: BASO # 0.04 K/mm3 (0.0-2.0); BASO % 0.8 % (0.0-3.0); EOS # 0.1 (0.0-0.7); EOS % 1.2 % (1.5-5.0); GRAN # 3.06 (1.4-6.5); GRAN % 60.5 % (50.0-68.0); HEMATOCRIT 37.8 % (42.0-52.0); LYMPH # 1.5 (1.2-3.4); MEAN CELL VOLUME 79.4 fL (80.0-105.0); MEAN CORPUSCULAR HEMOGLOBIN 27.3 pg (25.0-35.0); MEAN CORPUSCULAR HGB CONC 34.4 g/dl (31.0-37.0); MEAN PLATELET VOLUME 10.1 fl (7.0-11.0); MONO # 0.4 (0.1-0.6); MONO % 7.5 % (1.0-6.0); PLATELET COUNT 210 10^3/uL (120.0-450.0); RED CELL DISTRIBUTION WIDTH 12.6 % (11.5-14.5); WHITE BLOOD COUNT 5.1 10^3/ul (4.5-11.0)
[2016-08-18] MEDS: Insulin Lispro (humaLOG) LOW Coverage SC SCH ×2 (08:16→12:12)
--- NOTE | 2016-08-18 08:55 | CP.PCM.PN ---
Subjective - Date & Time of Evaluation Date of Evaluation: 08/18/16 Time of Evaluation: 07:30 Objective - Vital Signs/Intake and Output Vital Signs (last 24 hours): Temp Pulse Resp BP Pulse Ox 98.4 F 56 L 18 129/81 99 08/18/16 00:01 08/18/16 00:01 08/18/16 00:01 08/18/16 00:01 08/18/16 00:01 Intake and Output: 08/18/16 08/18/16 06:59 18:59 Intake Total 1620 120 Output Total 900 300 Balance 720 -180 - Medications Medications: Current Medications Amlodipine Besylate (Norvasc) 10 mg PO DAILY [facility] Last Admin: 08/17/16 10:08 Dose: 10 mg Aspirin (Ecotrin) 81 mg PO DAILY [facility] Last Admin: 08/17/16 10:08 Dose: 81 mg Atorvastatin Calcium (Lipitor) 10 mg PO HS [facility] Last Admin: 08/17/16 21:27 Dose: 10 mg Clonidine HCl (Catapres) 0.1 mg PO Q12 [facility] Last Admin: 08/17/16 21:27 Dose: 0.1 mg Docusate Sodium (Colace) 100 mg PO TID [facility] Last Admin: 08/17/16 17:21 Dose: 100 mg Insulin Human Lispro (Humalog Low) 0 units SC ACHS [facility] PRN Reason: Protocol Last Admin: 08/18/16 08:16 Dose: Not Given Lactulose (Enulose) 30 gm PO TID [facility] Last Admin: 08/17/16 17:25 Dose: Not Given Levothyroxine Sodium (Synthroid) 75 mcg PO ACB [facility] Last Admin: 08/18/16 08:29 Dose: 75 mcg Ondansetron HCl (Zofran Inj) 4 mg IVP Q6 PRN PRN Reason: Nausea/Vomiting Last Admin: 08/17/16 16:17 Dose: 4 mg Pantoprazole Sodium (Protonix Ec Tab) 40 mg PO 0630 [facility] Last Admin: 08/18/16 05:43 Dose: 40 mg Polyethylene Glycol (Miralax) 17 gm PO TID [facility] Last Admin: 08/17/16 17:25 Dose: Not Given - Labs Labs: 08/18/16 07:00 08/18/16 07:00
--- NOTE | 2016-08-18 10:02 | CP.PCM.DIS ---
Addendum entered and electronically signed by Sandor Ch DO 08/18/16 13:25 : Hospital Course: 61 year-old male with PMH of HTN, DM, HLD, and hypothyroidism [place] [facility] [place] with complaint of rectal pain and constipation. Patient stated that the pain and constipation had been present for 2 days. He rated his pain as a 10/10 in severity at its worst. The pain was intermittent, sharp and intense located in the rectum/anus without radiation. Last BM was 3 days ago. Admitted to pain and flatus and defication. Denied fever/chills, cp, sob, palpitations, abd pain, n/v /d/, incontinence, urinary symptoms, hematochezia, weakness, fatigue, and numbness and tingling. Patient is admitted for constipation and rectal pain. During his hospital stay, he was given mag citrate, dulcolax, Colace, lactulose, and miralax for his constipation and toradol for pain. GI was consulted. His CT abd/pelvis showed fecal impaction of rectum. He was found to have acute renal failure, BUN was 39 and Cr was 1.7. Started on IV fluids, NS at 100cc/hr X 1L. Today, patient is doing better. He had multiple bowel movements yesterday and his pain decreased. He will get an outpatient colonoscopy. On 08/18, patient was deemed medically stable for discharge to home by Dr. Contreras. This is just a summary. Please see EMR for further details. Original Note: <Sandor Ch - Last Filed: 08/18/16 13:20> Provider - Provider Date of Admission: 08/17/16 06:35 Attending physician: Sean Contreras MD Consults: GI: Leila Nephro: Jae Time Spent in preparation of Discharge (in minutes): 45 Diagnosis - Discharge Diagnosis (1) Constipation Status: Acute Comment: See hospital course (2) Rectal pain Status: Acute Comment: See hospital course (3) Diabetes Status: Acute Comment: See hospital course (4) Hypertension Status: Acute Comment: See hospital course (5) STEVEN (acute kidney injury) Status: Acute Comment: See hospital course Hospital Course - Lab Results Lab Results: Most Recent Lab Values WBC 5.1 10^3/ul (4.5-11.0) D 08/18/16 07:00 RBC 4.76 10^6/uL (3.5-6.1) 08/18/16 07:00 Hgb 13.0 gm/dL (14.0-18.0) L 08/18/16 07:00 Hct 37.8 % (42.0-52.0) L 08/18/16 07:00 MCV 79.4 fL (80.0-105.0) L 08/18/16 07:00 MCH 27.3 pg (25.0-35.0) 08/18/16 07:00 MCHC 34.4 g/dl (31.0-37.0) 08/18/16 07:00 RDW 12.6 % (11.5-14.5) 08/18/16 07:00 Plt Count 210 10^3/uL (120.0-450.0) 08/18/16 07:00 MPV 10.1 fl (7.0-11.0) 08/18/16 07:00 Gran % 60.5 % (50.0-68.0) 08/18/16 07:00 Lymph % (Auto) 30.0 % (22.0-35.0) 08/18/16 07:00 [place] % (Auto) 7.5 % (1.0-6.0) H 08/18/16 07:00 Eos % (Auto) 1.2 % (1.5-5.0) L 08/18/16 07:00 Baso % (Auto) 0.8 % (0.0-3.0) 08/18/16 07:00 Gran # 3.06 (1.4-6.5) 08/18/16 07:00 Lymph # 1.5 (1.2-3.4) 08/18/16 07:00 Garvin # 0.4 (0.1-0.6) 08/18/16 07:00 Eos # 0.1 (0.0-0.7) 08/18/16 07:00 Baso # 0.04 K/mm3 (0.0-2.0) 08/18/16 07:00 Sodium 139 mmol/L (132-148) 08/18/16 07:00 Potassium 4.6 mmol/L (3.6-5.0) 08/18/16 07:00 Chloride 103 mmol/L (98-107) 08/18/16 07:00 Carbon Dioxide 27 mmol/L (21-33) 08/18/16 07:00 Anion Gap 14 (10-20) 08/18/16 07:00 BUN 27 mg/dL (7-21) H 08/18/16 07:00 Creatinine 1.4 mg/dL (0.5-1.4) 08/18/16 07:00 Est GFR ( Amer) > 60 08/18/16 07:00 Est GFR (Non-Af Amer) 51 08/18/16 07:00 Random Glucose 138 mg/dL (70-110) H 08/18/16 07:00 Calcium 9.0 mg/dL (8.4-10.5) 08/18/16 07:00 Phosphorus 2.7 mg/dL (2.5-4.5) 08/18/16 07:00 Magnesium 2.3 mg/dL (1.7-2.2) H 08/18/16 07:00 Total Bilirubin 0.7 mg/dL (0.2-1.3) 08/18/16 07:00 AST 28 U/L (15-59) 08/18/16 07:00 ALT 30 U/L (7-56) 08/18/16 07:00 Alkaline Phosphatase 91 U/L (38-133) 08/18/16 07:00 Total Creatine Kinase 104 U/L (35-230) 08/18/16 07:00 Total Protein 8.0 g/dL (5.8-8.3) 08/18/16 07:00 Albumin 4.0 g/dL (3.0-4.8) 08/18/16 07:00 Globulin 4.0 gm/dL 08/18/16 07:00 Albumin/Globulin Ratio 1.0 (1.1-1.8) L 08/18/16 07:00 Lipase 80 U/L (23-300) 08/17/16 03:15 Urine Color Yellow (YELLOW) 08/18/16 01:35 Urine Appearance Clear (CLEAR) 08/18/16 01:35 Urine pH 6.0 (4.7-8.0) 08/18/16 01:35 Ur Specific [place] 1.020 (1.005-1.035) 08/18/16 01:35 Urine Protein Negative mg/dL (<30 mg/dL) 08/18/16 01:35 Urine Glucose (UA) 100 mg/dL (NEGATIVE) H 08/18/16 01:35 Urine Ketones Negative mg/dL (NEGATIVE) 08/18/16 01:35 Urine Blood Negative (NEGATIVE) 08/18/16 01:35 Urine Nitrate Negative (NEGATIVE) 08/18/16 01:35 Urine Bilirubin Negative (NEGATIVE) 08/18/16 01:35 Urine Urobilinogen 0.2 E.U./dL (<1 E.U./dL) 08/18/16 01:35 Ur Leukocyte Esterase Negative Rodrigo/uL (NEGATIVE) 08/18/16 01:35 Ur Random Creatinine 148 mg/dL 08/18/16 01:35 Ur Random Sodium 87 meq/L 08/18/16 01:35 Urine Opiates Screen Negative (NEGATIVE) 08/18/16 01:35 Urine Methadone Screen Negative (NEGATIVE) 08/18/16 01:35 Ur Barbiturates Screen Negative (NEGATIVE) 08/18/16 01:35 Ur Phencyclidine Scrn Negative (NEGATIVE) 08/18/16 01:35 Ur Amphetamines Screen Negative (NEGATIVE) 08/18/16 01:35 U Benzodiazepines Scrn Negative (NEGATIVE) 08/18/16 01:35 U Oth Cocaine Metabols Negative (NEGATIVE) 08/18/16 01:35 U Cannabinoids Screen Negative (NEGATIVE) 08/18/16 01:35 Discharge Exam - Head Exam Head Exam: ATRAUMATIC, NORMAL INSPECTION, NORMOCEPHALIC - Eye Exam Eye Exam: EOMI, Normal appearance Pupil Exam: NORMAL ACCOMODATION, PERRL - ENT Exam ENT Exam: Mucous Membranes Moist - Neck Exam Neck exam: Normal Inspection - Respiratory Exam Respiratory Exam: Clear to PA & Lateral, NORMAL BREATHING PATTERN - Cardiovascular Exam Cardiovascular Exam: REGULAR RHYTHM, +S1, +S2 - GI/Abdominal Exam GI & Abdominal Exam: Normal Bowel Sounds, Soft. absent: Tenderness - Rectal Exam Rectal Exam: NORMAL INSPECTION - Extremities Exam Extremities exam: normal capillary refill, normal inspection, pedal pulses present - Back Exam Back exam: absent: CVA tenderness (L), CVA tenderness (R) - Neurological Exam Neurological exam: Alert, CN II-XII Intact, Normal Gait, Oriented x3 - Psychiatric Exam Psychiatric exam: Normal Affect, Normal Mood - Skin Skin Exam: Dry, Intact, Normal Color, Warm Discharge Plan - Discharge Medications Prescriptions: cloNIDine [Catapres] 0.1 mg PO Q12 #60 tab Docusate [Colace] 100 mg PO TID #90 cap Polyethylene Glycol 3350 [Miralax] 17 gm PO TID #30 packet - Follow Up Plan Condition: STABLE Disposition: HOME/ ROUTINE Instructions: Constipation (DC), High Fiber Diet (DC), Fecal Impaction (GEN) Additional Instructions: Patient is medically stable for discharge to home by Dr. Contreras. Patient to start new medication Miralax and Colace. Patient is to stop taking Chlorthiadone 25 mg PO daily and is to take Spironolactone 25 mg by mouth twice per day instead of 50 mg twice perday. Clonidine is now 0.1 mg twice per day instead of 0.2 mg twice per day. He is to resume all other home medications as previously prescribed. Patient is to follow up with PMD, GI (Dr. Malcolm) and Nephrology (Dr. Rowe) within 1 week of discharge. He may resume physical activity as tolerated. Please return to ED if symptoms persist or condition worsens. All instructions stated above were discussed with the patient and her spouse. They both verbalized understanding and agreement. <Sean Contreras - Last Filed: 08/18/16 16:04> Provider - Provider Date of Admission: 08/17/16 06:35 Attending physician: Sean Contreras MD Time Spent in preparation of Discharge (in minutes): 35 Hospital Course - Lab Results Lab Results: Micro Results 08/17/16 13:00 Blood Blood Culture - Preliminary NO GROWTH AFTER 24 HOURS 08/17/16 13:00 Blood Blood Culture - Preliminary NO GROWTH AFTER 24 HOURS Most Recent Lab Values WBC 5.1 10^3/ul (4.5-11.0) D 08/18/16 07:00 RBC 4.76 10^6/uL (3.5-6.1) 08/18/16 07:00 Hgb 13.0 gm/dL (14.0-18.0) L 08/18/16 07:00 Hct 37.8 % (42.0-52.0) L 08/18/16 07:00 MCV 79.4 fL (80.0-105.0) L 08/18/16 07:00 MCH 27.3 pg (25.0-35.0) 08/18/16 07:00 MCHC 34.4 g/dl (31.0-37.0) 08/18/16 07:00 RDW 12.6 % (11.5-14.5) 08/18/16 07:00 Plt Count 210 10^3/uL (120.0-450.0) 08/18/16 07:00 MPV 10.1 fl (7.0-11.0) 08/18/16 07:00 Gran % 60.5 % (50.0-68.0) 08/18/16 07:00 Lymph % (Auto) 30.0 % (22.0-35.0) 08/18/16 07:00 Garvin % (Auto) 7.5 % (1.0-6.0) H 08/18/16 07:00 Eos % (Auto) 1.2 % (1.5-5.0) L 08/18/16 07:00 Baso % (Auto) 0.8 % (0.0-3.0) 08/18/16 07:00 Gran # 3.06 (1.4-6.5) 08/18/16 07:00 Lymph # 1.5 (1.2-3.4) 08/18/16 07:00 Garvin # 0.4 (0.1-0.6) 08/18/16 07:00 Eos # 0.1 (0.0-0.7) 08/18/16 07:00 Baso # 0.04 K/mm3 (0.0-2.0) 08/18/16 07:00 Sodium 139 mmol/L (132-148) 08/18/16 07:00 Potassium 4.6 mmol/L (3.6-5.0) 08/18/16 07:00 Chloride 103 mmol/L (98-107) 08/18/16 07:00 Carbon Dioxide 27 mmol/L (21-33) 08/18/16 07:00 Anion Gap 14 (10-20) 08/18/16 07:00 BUN 27 mg/dL (7-21) H 08/18/16 07:00 Creatinine 1.4 mg/dL (0.5-1.4) 08/18/16 07:00 Est GFR ( Amer) > 60 08/18/16 07:00 Est GFR (Non-Af Amer) 51 08/18/16 07:00 Random Glucose 138 mg/dL (70-110) H 08/18/16 07:00 Calcium 9.0 mg/dL (8.4-10.5) 08/18/16 07:00 Phosphorus 2.7 mg/dL (2.5-4.5) 08/18/16 07:00 Magnesium 2.3 mg/dL (1.7-2.2) H 08/18/16 07:00 Total Bilirubin 0.7 mg/dL (0.2-1.3) 08/18/16 07:00 AST 28 U/L (15-59) 08/18/16 07:00 ALT 30 U/L (7-56) 08/18/16 07:00 Alkaline Phosphatase 91 U/L (38-133) 08/18/16 07:00 Total Creatine Kinase 104 U/L (35-230) 08/18/16 07:00 Total Protein 8.0 g/dL (5.8-8.3) 08/18/16 07:00 Albumin 4.0 g/dL (3.0-4.8) 08/18/16 07:00 Globulin 4.0 gm/dL 08/18/16 07:00 Albumin/Globulin Ratio 1.0 (1.1-1.8) L 08/18/16 07:00 Lipase 80 U/L (23-300) 08/17/16 03:15 Urine Color Yellow (YELLOW) 08/18/16 01:35 Urine Appearance Clear (CLEAR) 08/18/16 01:35 Urine pH 6.0 (4.7-8.0) 08/18/16 01:35 Ur Specific [place] 1.020 (1.005-1.035) 08/18/16 01:35 Urine Protein Negative mg/dL (<30 mg/dL) 08/18/16 01:35 Urine Glucose (UA) 100 mg/dL (NEGATIVE) H 08/18/16 01:35 Urine Ketones Negative mg/dL (NEGATIVE) 08/18/16 01:35 Urine Blood Negative (NEGATIVE) 08/18/16 01:35 Urine Nitrate Negative (NEGATIVE) 08/18/16 01:35 Urine Bilirubin Negative (NEGATIVE) 08/18/16 01:35 Urine Urobilinogen 0.2 E.U./dL (<1 E.U./dL) 08/18/16 01:35 Ur Leukocyte Esterase Negative Rodrigo/uL (NEGATIVE) 08/18/16 01:35 Ur Random Creatinine 148 mg/dL 08/18/16 01:35 Ur Random Sodium 87 meq/L 08/18/16 01:35 Urine Opiates Screen Negative (NEGATIVE) 08/18/16 01:35 Urine Methadone Screen Negative (NEGATIVE) 08/18/16 01:35 Ur Barbiturates Screen Negative (NEGATIVE) 08/18/16 01:35 Ur Phencyclidine Scrn Negative (NEGATIVE) 08/18/16 01:35 Ur Amphetamines Screen Negative (NEGATIVE) 08/18/16 01:35 U Benzodiazepines Scrn Negative (NEGATIVE) 08/18/16 01:35 U Oth Cocaine Metabols Negative (NEGATIVE) 08/18/16 01:35 U Cannabinoids Screen Negative (NEGATIVE) 08/18/16 01:35 - Hospital Course Hospital Course: attending note: Patient is a 61 year old male Male with PMH of HTN, DM, HLD, and Hypothyroidism [place] [facility] [place] with a complaint of rectal pain and constipation. Patient stated that the pain and consitpation have been present for [address] abd/pelvis showed fecal impaction of rectum. started on colace, Magnesium citrate and miralax. had multiple BM. tolerating diet well. No nausea or vomiting. Advised to get Outpatient colonoscopy. GI evaluation with DR. malcolm appreciated. colace and miralax prescription given. ARF: moslty pre renal. resolved. BP meds adjusted. Nephrology evaluation with DR. Boateng appreciated. upon Discharge the patient will follow up with PMD Dr. Perdomo and nephrology Dr. Lombardi. diagnosis; Fecal impaction HTn ARF DM
[2016-08-18] MEDS: POLYETHYLENE GLYCOL 3350 17 GM/Dose PACKET PO SCH (10:14)
[2016-08-18 10:16] VITALS: PULSE 52; RESP 17; TEMP 98.2; O2SAT 100
[2016-08-18 14:40] VITALS: BP 131/82
[2016-08-19 08:21] LABS: CREATININE, RANDOM URINE 160 mg/dL (20-370)
--- NOTE | 2016-08-21 08:36 | PN ---
DATE: 08/18/2016 The patient is a 61-year-old male with a history of hypertension, diabetes, nonobstructive coronary a rtery disease status post CVA with left hemiparesis, admitted due to severe rectal pain and fecal imp action. Nephrology service was consulted for acute renal failure. The patient reports feeling well. Denies any lightheadedness upon standing. No issues with breathing. Pain has resolved. No longer with fecal impaction. PHYSICAL EXAMINATION: VITAL SIGNS: This morning: Blood pressure 147/76, heart rate 52, respirations 17, temperature 98.2, O2 sat 100% on room air. GENERAL: In no distress, able to converse coherently in full sentences. HEENT: Moist mucous membranes. Nonicteric. CHEST: Clear to auscultation bilaterally. No rales, no rhonchi, no wheezes. HEART: S1, S2 positive, no murmurs, no rubs, no gallops. ABDOMEN: Soft, nontender, nondistended. No bladder distention. EXTREMITIES: No leg edema. ASSESSMENT: 1. Acute renal failure on chronic kidney disease stage II/IIIA, prerenal etiology with orthostatic f indings last night, resolved with administration of 1 liter of IV fluids overnight. Serum creatinine now close to baseline at 1.4, down from 1.7 yesterday. Volume depletion likely induced by diuretics , possibility of superimposed gastrointestinal losses all in the setting of impaired renal autoregula tion due to being on MARCEL blockade. The patient is ready to be discharged today. Decreasing diuretic s. Will followup as an outpatient. 2. Hypertension. Still needs a workup for secondary hypertension, in particular somewhat remote pos sibility of primary aldosteronism. Will be discharged on amlodipine 10 mg daily, clonidine 0.1 mg b. i.d. down from 0.2 mg, Aldactone 25 mg b.i.d., down from 50 mg and will be restarted on Lisinopril 40 mg daily. 3. Coronary artery disease. Nonobstructive disease per recent catheterization. On aspirin and Lipi tor. Recommend to increase Lipitor dose in the setting of known coronary artery disease. Will also help with suspected renovascular disease. 4. Constipation/fecal impaction. The patient advised never to use phosphate enema as this may preci pitating acute renal failure. 5. Pain. The patient advised not to use NSAIDS as this may worsen renal function. Adryan Boateng MD cc: [id number] TT: 08/18/2016 20:11:46 Confirmation # [id number] Dictation # [id number]
== END 2016-08-18 15:08 | disposition home or self-care (01) ==
LOC: ED 00:24 → ERH 06:35 → 3RNO 09:24
PROVIDERS: ADMIT Internal Medicine; ATTEND Internal Medicine
DX: K56.41 Fecal impaction (principal); N17.9 Acute kidney failure, unspecified; I69.354 Hemiplegia and hemiparesis following cerebral infarction affecting left non-dominant side; I12.9 Hypertensive chronic kidney disease with stage 1 through stage 4 chronic kidney disease, or unspecified chronic kidney disease; N18.2 Chronic kidney disease, stage 2 (mild); E11.22 Type 2 diabetes mellitus with diabetic chronic kidney disease; E78.5 Hyperlipidemia, unspecified; E03.9 Hypothyroidism, unspecified; I25.10 Atherosclerotic heart disease of native coronary artery without angina pectoris; Z87.891 Personal history of nicotine dependence; Z79.84 Long term (current) use of oral hypoglycemic drugs; Z79.82 Long term (current) use of aspirin; Z82.49 Family history of ischemic heart disease and other diseases of the circulatory system; Z83.3 Family history of diabetes mellitus
CPT/HCPCS: 36415; 74176; 80053; 81003; 82550; 82570; 83690; 83735; 84100; 84156; 84300; 85025; 85027; 87040; 96374; 99285; G0378; G0480; J2405; J7040; Q9967

== ENCOUNTER 2016-09-27 07:43 | Day surgery (SDC) | payer MEDICARE, MEDICAID ==
[2016-09-18 13:33] VITALS: BMI 21.6
[2016-09-27] MEDS ORDERED: Lidocaine 1% Inj (20ml) ONE (09:41)
[2016-09-27] MEDS ORDERED: Propofol 10 mg/ml Inj (20 ML) ONE (09:41)
[2016-09-27] MEDS ORDERED: Lactated Ringer's 1,000 ML IV SCH (10:09)
[2016-09-27 11:21] VITALS: BP 127/69; PULSE 66; RESP 16; TEMP 97.6; O2SAT 100
== END 2016-09-27 11:52 | disposition home or self-care (01) ==
LOC: ENDO 07:43
PROVIDERS: ATTEND Specialist
DX: Z12.11 Encounter for screening for malignant neoplasm of colon (principal); D12.3 Benign neoplasm of transverse colon; K57.30 Diverticulosis of large intestine without perforation or abscess without bleeding; K64.8 Other hemorrhoids; I25.10 Atherosclerotic heart disease of native coronary artery without angina pectoris; E11.9 Type 2 diabetes mellitus without complications; E03.9 Hypothyroidism, unspecified; Z86.73 Personal history of transient ischemic attack (TIA), and cerebral infarction without residual deficits
CPT/HCPCS: 45380; 88305; J2704; J7120